=== PATIENT | female | born 1955 | race Caucasian/White ===

== ENCOUNTER → 2020-09-28 08:41 | Outpatient (BNVA) | payer OTHER, SELFPAY | PROVIDERS: PCP Internal Medicine; Referring Provider Internal Medicine; Visit Provider Internal Medicine | DX: E05.90 Thyrotoxicosis, unspecified without thyrotoxic crisis or storm (principal); E55.9 Vitamin D deficiency, unspecified; E04.2 Nontoxic multinodular goiter; Z79.899 Other long term (current) drug therapy; Z23 Encounter for immunization | CPT/HCPCS: 90686 ==

== ENCOUNTER 2020-10-29 10:10 | Outpatient (REF) | payer OTHER, SELFPAY ==
[2020-10-29 11:17] LABS: COVID-19 Test Negative (Negative)
== END 2020-10-29 10:11 | disposition home or self-care (01) ==
LOC: HO.EMPCOV 10:10
PROVIDERS: Visit Provider Internal Medicine
DX: Z20.828 Contact with and (suspected) exposure to other viral communicable diseases (principal)
CPT/HCPCS: 87635; C9803

== ENCOUNTER 2021-02-03 13:27 | Outpatient (REF) | payer OTHER, SELFPAY ==
[2021-02-03 15:24] LABS: Free T4 (Free Thyroxine) 0.86 ng/dL (0.71-1.85); Thyroid Stimulating Hormone 1.97 uIU/mL (0.32-4.0)
[2021-02-04 07:41] LABS: Triiodothyronine T3 Free 2.9 pg/mL (2.3-4.2)
== END 2021-02-03 13:28 | disposition home or self-care (01) ==
LOC: HO.LAB 13:27
PROVIDERS: PCP Internal Medicine; Visit Provider Internal Medicine Endocrinology, Diabetes & Metabolism
DX: E05.20 Thyrotoxicosis with toxic multinodular goiter without thyrotoxic crisis or storm (principal)
CPT/HCPCS: 36415; 84439; 84443; 84481

== ENCOUNTER 2021-02-20 14:50 | Emergency (ER) | payer OTHER, SELFPAY ==
--- NOTE | ~2021-02-20 | XR_ITS ---
EXAMINATION: XR CHEST CLINICAL INFORMATION: Chest pain COMPARISON: January 22, 2013 TECHNIQUE: Frontal view of the chest was obtained. FINDINGS: No significant abnormality is noted involving the heart, lungs, mediastinum, bony thorax or soft tissues. XR/XR chest 1V IMPRESSION: No acute disease.
--- NOTE | 2021-02-20 14:55 | ECG_ITS ---
Test Reason : CHEST PAIN Blood Pressure : / mmHG Vent. Rate : 095 BPM Atrial Rate : 095 BPM P-R Int : 142 ms QRS Dur : 090 ms QT Int : 364 ms P-R-T Axes : 069 068 053 degrees QTc Int : 457 ms Normal sinus rhythm Normal ECG When compared with ECG of 01-SEP-2019 17:12, No significant change was found Referred By: Dottie Zelaya Electronically Signed By:PABLO WHYTE
[2021-02-20 15:00] VITALS: BP 146/70; PULSE 97; RESP 18; TEMP 36.8; O2SAT 97; BMI 28.3
--- NOTE | 2021-02-20 15:03 | ECG_ITS ---
Test Reason : REPEAT Blood Pressure : / mmHG Vent. Rate : 072 BPM Atrial Rate : 072 BPM P-R Int : 148 ms QRS Dur : 090 ms QT Int : 404 ms P-R-T Axes : 081 065 060 degrees QTc Int : 442 ms Normal sinus rhythm Normal EKG When compared with ECG of 20-FEB-2021 14:55, No significant changes seen Referred By: Dottie Zelaya Electronically Signed By:PABLO WHYTE
[2021-02-20 15:24] LABS: MANUAL DIFF FLAG NO
[2021-02-20 15:33] LABS: Basophils Percent Auto 0.3 % (0-2); Eosinophils Absolute Auto 0.1 X10*3/uL (0.0-0.4); Eosinophils Percent Auto 1.3 % (0-4); Hematocrit 40.8 % (37-47); Hemoglobin 13.1 g/dl (12.0-16.0); Imm Gran Abs Auto 0.01 X10*3/uL (0.00-0.03); Imm Gran Pct Auto 0.2 % (0.0-0.4); Lymphocytes Absolute Auto 1.2 X10*3/uL (1.2-4.9); Lymphocytes Percent Auto 20.7 % (20-40); Mean Corpuscular HGB Conc 32.1 g/dl (31.0-35.0); Mean Corpuscular Hemoglobin 28.5 pg (27.0-33.0); Mean Corpuscular Volume 88.9 fL (80-98); Monocytes Absolute Auto 0.6 X10*3/uL (0.1-1.2); Monocytes Percent Auto 9.4 % (2-11); Neutrophils Percent Auto 68.1 % (45-73); Platelet Count 312 X10*3/uL (160-400); Red Blood Count 4.59 X10*6/uL (4.20-5.50); White Blood Count 5.9 X10*3/uL (4.8-10.8)
[2021-02-20 15:56] LABS: Anion Gap 13 (12-20); Blood Urea Nitrogen 14 mg/dL (9-16); Calcium 9.2 mg/dL (8.4-10.2); Carbon Dioxide 28 mmol/L (22-29); Chloride 103 mmol/L (96-108); Creatinine Clr Calc Pharmacy 70.1; Estimated Glomerular Filt Rate > 60; Glucose Random 85 mg/dL (60-115); Potassium 4.2 mmol/L (3.3-5.1); Sodium 140 mmol/L (135-145)
[2021-02-20 16:06] LABS: Troponin-I High Sensitivity < 3.5 ng/L (<3.5-17.0)
[2021-02-20 19:51] LABS: Troponin-I High Sensitivity 3.5 ng/L (<3.5-17.0)
[2021-02-20 20:24] LABS: D Dimer < 200 NG/ML
[2021-02-20 20:25] VITALS: BP 131/69; PULSE 84; RESP 20; O2SAT 98
--- NOTE | 2021-02-20 20:27 | PC.NURSE ---
pt states that she has been under alot of life stressors at this time and has been off of her medications gabapentin and clonazepam.
--- NOTE | 2021-02-20 20:29 | ED_ITS ---
HPI - Chest Pain General Chief Complaint: Chest Pain Stated Complaint: CHEST PAIN Time Seen by Provider: 02/20/21 20:05 Source: patient Mode of arrival: ambulatory Limitations: no limitations History of Present Illness HPI narrative: 65-year-old female who stated has been going through stressful events in her life, patient while she was taking shower about 7 hours ago she felt pain in her left breast with no radiation localized to left breast area, pain was dull aching lasted for about 30 minutes now the pain is gone, nothing made the pain worse or better, no other associated symptoms. Related Data Home Medications Medication Instructions Recorded Confirmed bupropion HCl 150 mg 24 hr tablet, 150 mg PO QAM 09/28/20 09/28/20 extended release cholecalciferol (vitamin D3) 50 50 mcg PO DAILY 09/28/20 09/28/20 mcg (2,000 unit) capsule fluoxetine 20 mg capsule 20 mg PO DAILY 09/28/20 09/28/20 gabapentin 100 mg capsule 100 mg PO BID 09/28/20 09/28/20 Previous Rx's Medication Instructions Recorded methimazole 5 mg tablet 5 mg PO DAILY #90 tab 10/28/20 Allergies Allergy/AdvReac Type Severity Reaction Status Date / Time metronidazole [From FLAGYL] Allergy Severe ANAPHYLAXIS Verified 09/28/20 09:46 sulfite [Sulfite] Allergy Intermediate BISULFITES-ITCHING Verified 09/28/20 09:46 IN MOUTH & THROAT,SHORTNESS OF BREATH phenylalanine [PHENYLALANINE] Allergy Mild UNKNOWN Verified 09/28/20 09:46 green pepper [GREEN PEPPER] Allergy Unknown LIP Verified 09/28/20 09:46 SWELLING From FLAGYL Allergy Severe ANAPHYLAXIS Uncoded 09/28/20 09:46 bisulfites Allergy Unknown itching Uncoded 09/28/20 09:46 peppers Allergy Unknown Unknown Uncoded 09/28/20 09:46 Review of Systems Review of Systems: All other systems are reviewed and are negative Constitutional: Reports as per HPI and Reports no additional constitutional complaints Eyes: Reports as per HPI and Reports no additional eye complaints Reports system reviewed and no additional complaints, except as documented Cardiovascular: Reports as per HPI and Reports no additional cardiovascular complaints Respiratory: Reports as per HPI and Reports no additional respiratory complaints Gastrointestinal: Reports as per HPI and Reports no additional gastrointestinal complaints Genitourinary: Reports no additional female genitourinary complaints Musculoskeletal: Reports no additional musculoskeletal complaints Skin/Breast: Reports system reviewed and no additional complaints, except as docu Psychiatric: Reports no additional psychiatric complaints Endocrine: Reports no additional endocrine complaints Hematologic/Lymphatic: Reports no additional hematologic/lymphatic complaints Allergic/Immunologic: Reports no additional allergic/immunologic complaints Reports system reviewed and no additional complaints, except as documented and Reports Abnormal speech present [facility] Past Medical History Medical History Multinodular thyroid Subclinical hyperthyroidism Vitamin D deficiency Surgical History Hx laparoscopic cholecystectomy Hx of breast augmentation Hx of cataract removal with insertion of prosthetic lens Hx of eye surgery Hx of foot surgery Hx of rhinoplasty Family History Family History Father No problems noted. Mother No problems noted. Social History Social History Alcohol intake: never Smoking Status: Never smoker Use of substances other than those prescribed or required for medical reasons: No Advance Directives: No Advance Directives Information Provided: Yes Physical Exam Vital Signs: Vital Signs: Last Vital Signs Temp 98.2 F 02/20/21 15:00 Pulse 84 02/20/21 20:25 Resp 20 02/20/21 20:25 BP 131/69 02/20/21 20:25 Pulse Ox 98 02/20/21 20:25 Body Mass Index 28.3 Vital signs have been reviewed as appeared to be correct. Blood pressure normal. Heart rate normal. Respiration rate normal. Temperature normal. Oxygen saturation normal. Appearance: Alert. Oriented X3. No acute distress. Head: Normal external exam. Normocephalic. Atraumatic. No Christianson signs noted. No raccoon eyes noted Eyes: PERRLA. EOMI. Conjunctiva and sclera normal. Eyelids normal. ENT: TM's Normal. Pharynx normal. Uvula midline. Moist mucous membranes. No trismus noted. No drooling noted. No muffled voice noted. Neck: Normal inspection. Neck supple. FROM. No adenopathy. Thyroid Normal. No meningeal signs. No neck mass noted. CVS: Normal heart rate and rhythm. Heart sound normal. No murmurs noted. Pulses normal throughout. Respiratory: No respiratory distress. Painless inspiration. Breath sounds normal. No wheezes/rales/rhonchi noted. Chest nontender. No accessory muscle usage noted or decreased air movement noted. Abdomen: Soft and nontender. Bowel sounds normal in all 4 quadrants. No distention noted. No organomegaly noted. No visible injury noted. Back: No CVA tenderness. Full range of motion noted. Skin: Skin warm and dry. Normal skin color. Normal skin turgor. No rashes/lesions/lacerations noted. Extremities: No lower extremity edema. Extremities exhibit normal range of motion. Extremities nontender. Neuro: Oriented X 3. No motor deficit. No sensory deficit. Reflexes normal. Course Course Course Narrative: Assessment and plan. 65-year-old female came in with chest pain after a stressful events today, patient had a negative workup in the emergency department including chest x-ray, EKG, troponin x2 3 hours apart, and D-dimer. None of the above is suggestive of life-threatening cardiopulmonary cause of the patient's symptoms. Patient now is asymptomatic feels better and would like to go home. MDM - Chest Pain Lab Data Attestation: I reviewed the patient's lab results. Result diagrams: 02/20/21 15:18 02/20/21 15:18 Labs: Lab Results 02/20/21 02/20/21 02/20/21 Range/Units 15:18 15:18 15:18 WBC 5.9 (4.8-10.8) X10*3/uL RBC 4.59 (4.20-5.50) X10*6/uL Hgb 13.1 (12.0-16.0) g/dl Hct 40.8 (37-47) % MCV 88.9 (80-98) fL MCH 28.5 (27.0-33.0) pg MCHC 32.1 (31.0-35.0) g/dl RDW 14.0 (11.0-16.0) % Plt Count 312 (160-400) X10*3/uL MPV 9.0 L (9.4-12.3) fL Immature Gran % (Auto) 0.2 (0.0-0.4) % Neut % (Auto) 68.1 (45-73) % Lymph % (Auto) 20.7 (20-40) % Bleckley % (Auto) 9.4 (2-11) % Eos % (Auto) 1.3 (0-4) % Baso % (Auto) 0.3 (0-2) % Lymph # (Auto) 1.2 (1.2-4.9) X10*3/uL Bleckley # (Auto) 0.6 (0.1-1.2) X10*3/uL Eos # (Auto) 0.1 (0.0-0.4) X10*3/uL Baso # (Auto) 0.0 (0.0-0.2) X10*3/uL Abs Immat Gran (auto) 0.01 (0.00-0.03) X10*3/uL Absolute Neuts (auto) 4.0 (2.0-8.3) X10*3/uL Absolute Nucleated RBC 0.000 (0.0-0.012) X10*3/uL Nucleated RBC % (auto) 0.0 (0.0-0.2) /100WBC D-Dimer < 200 NG/ML Hold Blue Top SEE NOTE Sodium 140 (135-145) mmol/L Potassium 4.2 (3.3-5.1) mmol/L Chloride 103 (96-108) mmol/L Carbon Dioxide 28 (22-29) mmol/L Anion Gap 13 (12-20) BUN 14 (9-16) mg/dL Creatinine 0.81 (0.5-1.4) mg/dL Estim Creat Clear Calc 70.1 Estimated GFR > 60 Random Glucose 85 (60-115) mg/dL Calcium 9.2 (8.4-10.2) mg/dL Troponin I High Sens (<3.5-17.0) ng/L 02/20/21 02/20/21 Range/Units 15:18 19:05 WBC (4.8-10.8) X10*3/uL RBC (4.20-5.50) X10*6/uL Hgb (12.0-16.0) g/dl Hct (37-47) % MCV (80-98) fL MCH (27.0-33.0) pg MCHC (31.0-35.0) g/dl RDW (11.0-16.0) % Plt Count (160-400) X10*3/uL MPV (9.4-12.3) fL Immature Gran % (Auto) (0.0-0.4) % Neut % (Auto) (45-73) % Lymph % (Auto) (20-40) % Bleckley % (Auto) (2-11) % Eos % (Auto) (0-4) % Baso % (Auto) (0-2) % Lymph # (Auto) (1.2-4.9) X10*3/uL Bleckley # (Auto) (0.1-1.2) X10*3/uL Eos # (Auto) (0.0-0.4) X10*3/uL Baso # (Auto) (0.0-0.2) X10*3/uL Abs Immat Gran (auto) (0.00-0.03) X10*3/uL Absolute Neuts (auto) (2.0-8.3) X10*3/uL Absolute Nucleated RBC (0.0-0.012) X10*3/uL Nucleated RBC % (auto) (0.0-0.2) /100WBC D-Dimer NG/ML Hold Blue Top Sodium (135-145) mmol/L Potassium (3.3-5.1) mmol/L Chloride (96-108) mmol/L Carbon Dioxide (22-29) mmol/L Anion Gap (12-20) BUN (9-16) mg/dL Creatinine (0.5-1.4) mg/dL Estim Creat Clear Calc Estimated GFR Random Glucose (60-115) mg/dL Calcium (8.4-10.2) mg/dL Troponin I High Sens < 3.5 3.5 (<3.5-17.0) ng/L Imaging Data Chest x-ray: Radiologist's impression: No acute disease. ECG Data ECG #1: Interpretation: Normal sinus rhythm at 72 beats per minutes, with PACs, normal axis deviation, normal intervals, no ST-T changes. Attending Attestation Discharge Plan Discharge Clinical Impression: Chest pain Patient Disposition: Home, Self-Care Instructions: Chest Pain (ED) Prescriptions: No Action methimazole 5 mg tablet 5 mg PO DAILY Qty: 90 RF: 3 bupropion HCl 150 mg tablet extended release 24 hr 150 mg PO QAM RF: 0 fluoxetine 20 mg capsule 20 mg PO DAILY RF: 0 cholecalciferol (vitamin D3) 50 mcg (2,000 unit) capsule 50 mcg PO DAILY RF: 0 gabapentin 100 mg capsule 100 mg PO BID RF: 0 Referrals: Physician,Unknown [Primary Care Provider] - 2 days Interventions: ED Discharge Assessment Last Done: 02/20/21 20:52 Discharge Date/Time: 02/20/21 20:53
== END 2021-02-20 20:53 | disposition home or self-care (01) ==
PROVIDERS: Emergency Provider Emergency Medicine
DX: R07.9 Chest pain, unspecified (principal)
CPT/HCPCS: 36415; 71045; 80048; 84484; 85025; 85379; 93005; 99283; 99284

== ENCOUNTER 2021-03-28 14:07 | Outpatient (REF) | payer OTHER, SELFPAY ==
--- NOTE | ~2021-03-28 | US_ITS ---
EXAMINATION: US THYROID CLINICAL INFORMATION: Toxic multinodular goiter. COMPARISON: Ultrasound-guided thyroid biopsy 09/10/2019. Thyroid ultrasound 03/03/2019. TECHNIQUE: Linear transducer prasad-scale and color Doppler examination with attention to the region of the thyroid. FINDINGS: SIZE: Measurements of the thyroid lobes and nodules are given in sagittal, anteroposterior and transverse dimensions respectively. Right Thyroid Lobe: 6.0 x 2.8 x 3.0 cm, volume 26.2 mL. Previously 6.3 x 2.6 x 2.2 cm, volume 21.6 mL. Parenchyma: The gland echotexture is heterogeneous. Thyroid vascularity is increased. Left Thyroid Lobe: 6.0 x 3.0 x 2.8 cm, volume 25.7 mL. Previously 5.1 x 2.3 x 2.1 cm, volume 13.1 mL. Parenchyma: The gland echotexture is heterogeneous. Thyroid vascularity is increased. Isthmus: 0.4 cm in maximum AP dimension. Previously 0.3 cm. There are innumerable bilateral nodules. Estimated total number of nodules greater than or equal to 1 cm: 6 to 10. Department Assistant nodules are described as follows: 1. Location: Right upper pole. Size: 2.1 x 1.5 x 1.6 cm, volume 2.5 mL. Previously: 2.0 x 1.6 x 1.4 cm, volume 2.3 mL. Nodule characteristics: Composition: Mixed cystic and solid (1). Echogenicity: Hypoechoic (2). Shape: Not taller than wide (0). Margins: Smooth (0). Echogenic Foci: Peripheral calcifications (2). ACR TI-RADS total points: 5 ACR TI-RADS category: 4 Significant change in size (>/= 20% in 2 dimensions and minimal increase of 2 mm or 50% or greater increase in volume): No Change in features: No Change in ACR TI-RADS risk category: No 2. Location: Right mid pole. Size: 1.2 x 1.1 x 1.2 cm, volume 0.8 mL. Previously: 0.8 x 0.8 x 0.8 cm, volume 0.27 mL. Nodule characteristics: Composition: Mixed cystic and solid (1). Echogenicity: Hypoechoic (2). Shape: Not taller than wide (0). Margins: Smooth (0). Echogenic Foci: None (0). ACR TI-RADS total points: 3 ACR TI-RADS category: 3 Significant change in size (>/= 20% in 2 dimensions and minimal increase of 2 mm or 50% or greater increase in volume): Yes Change in features: No Change in ACR TI-RADS risk category: No 3. Location: Right lower pole. Size: 1.3 x 1.1 x 1.2 cm, volume 0.94 mL. Previously: 1.0 x 1.0 x 0.9 cm, volume 0.47 mL. Nodule characteristics: Composition: Mixed cystic and solid (1). Echogenicity: Hypoechoic (2). Shape: Not taller than wide (0). Margins: Smooth (0). Echogenic Foci: None (0). ACR TI-RADS total points: 3 ACR TI-RADS category: 3 Significant change in size (>/= 20% in 2 dimensions and minimal increase of 2 mm or 50% or greater increase in volume): Yes Change in features: No Change in ACR TI-RADS risk category: No 4. Location: Left mid pole. Size: 3.1 x 2.1 x 1.9 cm, volume 6.7 mL. Previously: 2.2 x 1.6 x 1.6 cm, volume 2.95 mL. Nodule characteristics: Composition: Solid/almost completely solid (2). Echogenicity: Isoechoic (1). Shape: Not taller than wide (0). Margins: Smooth (0). Echogenic Foci: None (0). ACR TI-RADS total points: 3 ACR TI-RADS category: 3 Significant change in size (>/= 20% in 2 dimensions and minimal increase of 2 mm or 50% or greater increase in volume): Yes Change in features: No Change in ACR TI-RADS risk category: No 5. Location: Left mid pole. Size: 1.3 x 0.8 x 1.0 cm, volume 0.54 mL. Previously: 1.0 x 1.0 x 0.8 cm, volume 0.42 mL. Nodule characteristics: Composition: Solid (2). Echogenicity: Hypoechoic (2). Shape: Not taller than wide (0). Margins: Smooth (0). Echogenic Foci: None (0). ACR TI-RADS total points: 4 ACR TI-RADS category: 4 Significant change in size (>/= 20% in 2 dimensions and minimal increase of 2 mm or 50% or greater increase in volume): No Change in features: No Change in ACR TI-RADS risk category: No NODES: No lymphadenopathy is seen in the tissue surrounding the thyroid gland. US/US thyroid IMPRESSION: Enlarged heterogeneous hypervascular thyroid gland. Innumerable bilateral nodules. There is interval increase in size in the largest nodule in the mid left lobe. ACR TI-RADS RECOMMENDATION REFERENCE: Ultrasound-guided fine-needle aspiration, followup ultrasound, no further follow up. * TR1 (0 point) and TR 2 (2 points): No FNA or follow up * TR3 (3 points): FNA if more than or equal to 2.5 cm in maximum dimension, followup ultrasound in 1, 3 and 5 years if 1.5 to 2.4 cm in maximum dimension. * TR4 (4-6 points): FNA if more than or equal to 1.5 cm in maximum dimension, followup ultrasound in 1, 2, 3 and 5 years if 1 to 1.4 cm in maximum dimension. * TR5 (more than or equal to 7 points): FNA if more than or equal to 1 cm in maximum dimension, followup ultrasound every year for 5 years if 0.5 to 0.9 cm in maximum dimension. * TR3, TR4 or TR5 nodules that are below the size threshold for follow up receive no follow up.
== END 2021-03-28 14:08 | disposition home or self-care (01) ==
LOC: HO.US 14:07
PROVIDERS: Visit Provider Internal Medicine Endocrinology, Diabetes & Metabolism
DX: E05.20 Thyrotoxicosis with toxic multinodular goiter without thyrotoxic crisis or storm (principal)
CPT/HCPCS: 76536

== ENCOUNTER 2021-10-16 15:36 | Emergency (ER) | payer OTHER, SELFPAY ==
--- NOTE | ~2021-10-16 | US_ITS ---
EXAMINATION: US THYROID CLINICAL INFORMATION: Patient concern for new lumps in neck. COMPARISON: Thyroid ultrasound 03/28/2021 and 03/03/2019. Ultrasound-guided thyroid biopsy 09/10/2019. TECHNIQUE: Linear transducer grayscale and color Doppler examination with attention to the region of the thyroid. FINDINGS: SIZE: Measurements of the thyroid lobes and nodules are given in sagittal, anteroposterior and transverse dimensions respectively. Right Thyroid Lobe: 5.8 x 3.1 x 2.8 cm, volume 26.2 mL. Previously 6.0 x 2.8 x 3.0 cm, volume 26.2 mL. Parenchyma: The gland echotexture is heterogeneous. Thyroid vascularity is increased. Left Thyroid Lobe: 5.2 x 3.1 x 2.6 cm, volume 22.4 mL. Previously 6.0 x 3.0 x 2.8 cm, volume 25.7 mL. Parenchyma: The gland echotexture is heterogeneous. Thyroid vascularity is increased. Isthmus: 0.6 cm in maximum AP dimension. Previously 0.4 cm. As noted on prior exam, there are numerous nodules throughout the thyroid. Estimated total number of nodules greater than or equal to 1 cm: 5. Bilingual Case Manager nodules are described as follows: 1. Location: Right upper pole. Size: 1.5 x 1.4 x 1.5 cm, volume 1.64 mL. Previously: 2.1 x 1.6 x 1.5 cm, volume 2.5 mL. Nodule characteristics: Composition: Mixed cystic and solid (1). Echogenicity: Hypoechoic (2). Shape: Not taller than wide (0). Margins: Smooth (0). Echogenic Foci: Peripheral calcifications (2). ACR TI-RADS total points: 5 Previous: 5 ACR TI-RADS category: 4 Previous: 4 Change from prior: No suspicious changes, sightly decreased in size. 2. Location: Right mid pole. Size: 1.4 x 0.8 x 1.3 cm, volume 0.8 mL. Previously: 1.2 x 1.1 x 1.2 cm, volume 0.8 mL. Nodule characteristics: Composition: Mixed cystic and solid (1). Echogenicity: Cannot be determined (1). Shape: Not taller than wide (0). Margins: Smooth (0). Echogenic Foci: None (0). ACR TI-RADS total points: 2 Previous: 3 ACR TI-RADS category: 2 Previous: 3 Change from prior: No suspicious changes. Stable size. 3. Location: Right lower pole. Size: 1.5 x 0.8 x 1.2 cm, volume 0.8 mL. Previously: 1.3 x 1.1 x 1.2 cm, volume 0.94 mL. Nodule characteristics: Composition: Mixed cystic and solid (1). Echogenicity: Cannot be determined (1). Shape: Not taller than wide (0). Margins: Smooth (0). Echogenic Foci: None (0). ACR TI-RADS total points: 2 Previous: 3 ACR TI-RADS category: 2 Previous: 3 Change from prior: No suspicious changes, sightly decreased in size. 4. Location: Left mid pole. Size: 3.1 x 2.3 x 1.7 cm, volume 6.3 mL. Previously: 3.1 x 2.1 x 1.9 cm, volume 6.7 mL. Nodule characteristics: Composition: Solid (2). Echogenicity: Isoechoic (1). Shape: Not taller than wide (0). Margins: Smooth (0). Echogenic Foci: None (0). ACR TI-RADS total points: 3 Previous: 3 ACR TI-RADS category: 3 Previous: 3 Change from prior: No suspicious changes. Stable size. 5. Location: Left mid pole. Size: 1.6 x 0.8 x 1.2 cm, volume 0.8 mL. Previously: 1.3 x 0.8 x 1.0 cm, volume 0.54 mL. Nodule characteristics: Composition: Solid (2). Echogenicity: Hypoechoic (2). Shape: Not taller than wide (0). Margins: Smooth (0). Echogenic Foci: None (0). ACR TI-RADS total points: 4 Previous: 4 ACR TI-RADS category: 4 Previous: 4 Change from prior: No suspicious changes. Borderline increased size. NODES: No lymphadenopathy is seen in the tissue surrounding the thyroid gland. Preliminary results called to emergency department provider by radiologist Dr. Solis at time of exam. US/US thyroid IMPRESSION: Numerous thyroid nodules without significant change. No interval new dominant mass. No adenopathy. ACR TI-RADS RECOMMENDATION REFERENCE: Ultrasound-guided fine-needle aspiration, followup ultrasound, no further follow up. * TR1 (0 point) and TR 2 (2 points): No FNA or follow up * TR3 (3 points): FNA if more than or equal to 2.5 cm in maximum dimension, followup ultrasound in 1, 3 and 5 years if 1.5 to 2.4 cm in maximum dimension. * TR4 (4-6 points): FNA if more than or equal to 1.5 cm in maximum dimension, followup ultrasound in 1, 2, 3 and 5 years if 1 to 1.4 cm in maximum dimension. * TR5 (more than or equal to 7 points): FNA if more than or equal to 1 cm in maximum dimension, followup ultrasound every year for 5 years if 0.5 to 0.9 cm in maximum dimension. * TR3, TR4 or TR5 nodules that are below the size threshold for follow up receive no follow up.
[2021-10-16 16:03] VITALS: BP 113/69; PULSE 87; RESP 20; TEMP 36.1; O2SAT 98; BMI 28.8
--- NOTE | 2021-10-16 16:10 | ECG_ITS ---
Test Reason : GEN MED Blood Pressure : / mmHG Vent. Rate : 082 BPM Atrial Rate : 082 BPM P-R Int : 144 ms QRS Dur : 092 ms QT Int : 386 ms P-R-T Axes : 084 068 058 degrees QTc Int : 450 ms Normal sinus rhythm Normal ECG When compared with ECG of 20-FEB-2021 20:43, No significant change was found Referred By: Generic ED Physician Electronically Signed By:Tomasz Griffiths
[2021-10-16 16:35] LABS: Basophils Percent Auto 0.3 % (0-2); Eosinophils Absolute Auto 0.1 X10*3/uL (0.0-0.4); Eosinophils Percent Auto 2.1 % (0-4); Hematocrit 36.6 % (37.0-47.0); Hemoglobin 11.8 g/dl (12.0-16.0); Imm Gran Abs Auto 0.02 X10*3/uL (0.00-0.03); Imm Gran Pct Auto 0.3 % (0.0-0.4); Lymphocytes Percent Auto 14.1 % (20-40); MANUAL DIFF FLAG NO; Mean Corpuscular HGB Conc 32.2 g/dl (31.0-35.0); Mean Corpuscular Hemoglobin 29.1 pg (27.0-33.0); Mean Corpuscular Volume 90.4 fL (80.0-98.0); Mean Platelet Volume 9.1 fL (9.4-12.3); Monocytes Absolute Auto 0.7 X10*3/uL (0.1-1.2); Monocytes Percent Auto 10.2 % (2-11); Neutrophils Absolute Auto 4.9 x10*3/uL (2.0-8.3); Platelet Count 281 X10*3/uL (160-400); Red Blood Count 4.05 X10*6/uL (4.20-5.50); Red Cell Distribution Width 13.8 % (11.0-16.0); White Blood Count 6.7 X10*3/uL (4.8-10.8)
[2021-10-16 16:57] LABS: Alanine Aminotransferase 36 U/L (0-31); Alkaline Phosphatase 95 U/L (39-117); Anion Gap 11 (12-20); Aspartate Amino Transferase 28 U/L (5-31); Bilirubin Total 0.4 mg/dL (0.0-1.0); Blood Urea Nitrogen 14 mg/dL (9-16); Calcium 9.1 mg/dL (8.4-10.2); Carbon Dioxide 28 mmol/L (22-29); Chloride 106 mmol/L (96-108); Creatinine Clr Calc Pharmacy 68.2; Estimated Glomerular Filt Rate > 60; Glucose Random 90 mg/dL (60-115); Potassium 4.1 mmol/L (3.3-5.1); Sodium 141 mmol/L (135-145); Total Protein 6.1 g/dL (6.5-8.0)
[2021-10-16 21:16] VITALS: BP 170/71; PULSE 88; RESP 18; O2SAT 99
--- NOTE | 2021-10-16 21:21 | ED_ITS ---
HPI - General Adult General Chief complaint: General Medical Stated complaint: all over body shaking Time Seen by Provider: 10/16/21 21:06 Source: patient Mode of arrival: ambulatory Limitations: no limitations History of Present Illness HPI narrative: Patient comes to the emergency room complaining of lump her thro at, worsening tremors, and generalized fatigue Patient states that she has known history of hyperthyroidism. Patient states that she takes methimazole every day and takes her medication without skipping doses. Patient states that over the last week she has noticed that she has increased soreness in her neck, increased tremors, increased sweating episodes. Patient states that this morning she felt very fatigued with no clear reason. Patient denies any URI or UTI symptoms. Patient states that she has history of essential tremors, sodium hard to tell if she has worsening of tremors or if this is something new she is feeling. Patient states they have tried metoprolol in the past for her, however her blood pressure dropped to the low 80s and medication had to be discontinued. Related Data Home Medications Medication Instructions Recorded Confirmed bupropion HCl 150 mg 24 hr tablet, 150 mg PO QAM 09/28/20 09/28/20 extended release cholecalciferol (vitamin D3) 50 50 mcg PO DAILY 09/28/20 09/28/20 mcg (2,000 unit) capsule fluoxetine 20 mg capsule 20 mg PO DAILY 09/28/20 09/28/20 gabapentin 100 mg capsule 100 mg PO BID 09/28/20 09/28/20 Previous Rx's Medication Instructions Recorded methimazole 5 mg tablet 5 mg PO DAILY #90 tab 10/28/20 Allergies Allergy/AdvReac Type Severity Reaction Status Date / Time metronidazole [From FLAGYL] Allergy Severe ANAPHYLAXIS Verified 10/16/21 14:03 sulfite [Sulfite] Allergy Intermediate BISULFITES-ITCHING Verified 10/16/21 14:03 IN MOUTH & THROAT,SHORTNESS OF BREATH phenylalanine [PHENYLALANINE] Allergy Mild UNKNOWN Verified 10/16/21 14:03 green pepper [GREEN PEPPER] Allergy Unknown LIP Verified 10/16/21 14:03 SWELLING From FLAGYL Allergy Severe ANAPHYLAXIS Uncoded 09/28/20 09:46 bisulfites Allergy Unknown itching Uncoded 09/28/20 09:46 peppers Allergy Unknown Unknown Uncoded 09/28/20 09:46 Review of Systems Review of Systems: Constitutional : No Weight loss, No Fever, No Chills, No Night Sweats, complaining fatigue ENT/Mouth : No Hearing loss, No Ear Pain, No Nasal Congestion, No Sinus Pain, No Hoarseness, No sore throat, No Rhinorrhea, No Swallowing Difficulty, complaining increased tightness/lumps on her neck Eyes: No Eye Pain, No Swelling, No Redness, No Foreign Body, No Discharge, No Vision Changes Cardiovascular : No Chest Pain, No SOB, No Dyspnea on Exertion, No Orthopnea, No Edema, complaining of intermittent heart racing/ Respiratory : No Cough, No Sputum, No Wheezing, No Smoke Exposure, No Dyspnea Gastrointestinal : No Nausea, No Vomiting, No Diarrhea, No Constipation, No abdominal Pain, No Hematochezia, No Melena Genitourinary : no irregular bleeding, No Dysuria, No Urinary Frequency, No Hematuria, No Urinary Incontinence, No Urgency, No Flank Pain, No Urinary Flow Changes, No Hesitancy Musculoskeletal : Complaining posterior neck muscular discomfort, patient attributed to starting at the screen at work for prolonged period of time . No joint pain, No Myalgias, No Joint Swelling Skin : No Skin Lesions, No rash Neuro : No Weakness, No Numbness, No Paresthesias, No Loss of Consciousness, No Dizziness, No Headache, complaining of tremors Psych : No Anxiety/Panic, No Depression, No SI/HI/AH/VH, No Social Issues, Heme/Lymph: No Bruising, No Bleeding,No Lymphadenopathy Endocrine : No Polyuria, No Polydipsia, No Temperature Intolerance PMFSH Past Medical History Medical History Multinodular thyroid Subclinical hyperthyroidism Vitamin D deficiency Surgical History Hx laparoscopic cholecystectomy Hx of breast augmentation Hx of cataract removal with insertion of prosthetic lens Hx of eye surgery Hx of foot surgery Hx of rhinoplasty Family History Family History Father No problems noted. Mother No problems noted. Social History Social History Alcohol intake: never Patient Tobacco Use Status: Former Tobacco user Advance Directives: No Advance Directives Information Provided: No Physical Exam 2 Vital Signs: Vital Signs: Last Vital Signs Temp 97 F 10/16/21 16:03 Pulse 88 10/16/21 21:16 Resp 18 10/16/21 21:16 BP 170/71 H 10/16/21 21:16 Pulse Ox 99 10/16/21 21:16 BMI result Body Mass Index 28.8 Const: Other: Appearance: Alert. Oriented X3. No acute distress. Eyes: Pupils equal, round and reactive to light. ENT: Pharynx normal. Small nodule palpated in the anterior aspect midline of the neck, nonpainful Neck: Normal inspection. Neck supple. No lymph nodes noted. No crepitus CVS: Normal heart rate and rhythm. Pulses normal. Normal S1 and S2 Respiratory: No respiratory distress. Breath sounds normal. No Wheezing. No rales Abdomen: Soft and nontender. No rigidity. No distention. Skin: Skin warm and dry. Normal skin color. Normal skin turgor. Extremities: No lower extremity edema. No Lacerations. No Rash mild tremor at rest in the upper extremities/hands Neuro: Oriented X 3. No motor deficit. No sensory deficit. Moving all extermities. No slurred speech. Course Course Course Narrative: At this time, we cannot get a formal radiology report. However a radiologist on-call from [facility] called, there are no acute changes since patient's last ultrasound. Imaging with the patient, TSH is slightly elevated and free T4 is decreased. However both ranges are close to baseline. At this time, we will not change patient's medication, patient instructed to keep taking the same dose of methimazole. Patient likely having viral syndrome. Medical Decision Making Lab Data Result diagrams: 10/16/21 16:25 10/16/21 16:25 Labs: Lab Results 10/16/21 10/16/21 10/16/21 Range/Units 16:25 16:25 21:32 WBC 6.7 (4.8-10.8) X10*3/uL RBC 4.05 L (4.20-5.50) X10*6/uL Hgb 11.8 L (12.0-16.0) g/dl Hct 36.6 L (37.0-47.0) % MCV 90.4 (80.0-98.0) fL MCH 29.1 (27.0-33.0) pg MCHC 32.2 (31.0-35.0) g/dl RDW 13.8 (11.0-16.0) % Plt Count 281 (160-400) X10*3/uL MPV 9.1 L (9.4-12.3) fL Immature Gran % (Auto) 0.3 (0.0-0.4) % Neut % (Auto) 73.0 (45-73) % Lymph % (Auto) 14.1 L (20-40) % [place] % (Auto) 10.2 (2-11) % Eos % (Auto) 2.1 (0-4) % Baso % (Auto) 0.3 (0-2) % Lymph # (Auto) 1.0 L (1.2-4.9) X10*3/uL [place] # (Auto) 0.7 (0.1-1.2) X10*3/uL Eos # (Auto) 0.1 (0.0-0.4) X10*3/uL Baso # (Auto) 0.0 (0.0-0.2) X10*3/uL Abs Immat Gran (auto) 0.02 (0.00-0.03) X10*3/uL Absolute Neuts (auto) 4.9 (2.0-8.3) x10*3/uL Absolute Nucleated RBC 0.000 (0.0-0.012) X10*3/uL Nucleated RBC % (auto) 0.0 (0.0-0.2) /100WBC Sodium 141 (135-145) mmol/L Potassium 4.1 (3.3-5.1) mmol/L Chloride 106 (96-108) mmol/L Carbon Dioxide 28 (22-29) mmol/L Anion Gap 11 L (12-20) BUN 14 (9-16) mg/dL Creatinine 0.80 (0.5-1.4) mg/dL Estim Creat Clear Calc 68.2 Estimated GFR > 60 Random Glucose 90 (60-115) mg/dL Calcium 9.1 (8.4-10.2) mg/dL Total Bilirubin 0.4 (0.0-1.0) mg/dL AST 28 (5-31) U/L ALT 36 H (0-31) U/L Alkaline Phosphatase 95 (39-117) U/L Total Protein 6.1 L (6.5-8.0) g/dL Albumin 4.0 (3.5-5.0) g/dL TSH 5.52 H (0.32-4.0) uIU/mL Free T4 0.68 L (0.71-1.85) ng/dL Urine Color Urine Appearance Urine pH (5.0-8.0) Ur Specific [place] (1.005-1.025) Urine Protein (NEG-TRACE) MG/DL Urine Glucose (UA) (NEG) MG/DL Urine Ketones (NEG) MG/DL Urine Blood (NEG) Urine Nitrite (NEG) Ur Leukocyte Esterase (NEG) COVID-19 (LUNA) Negative (Negative) COVID-19 Clin Com See Note 10/16/21 Range/Units 22:42 WBC (4.8-10.8) X10*3/uL RBC (4.20-5.50) X10*6/uL Hgb (12.0-16.0) g/dl Hct (37.0-47.0) % MCV (80.0-98.0) fL MCH (27.0-33.0) pg MCHC (31.0-35.0) g/dl RDW (11.0-16.0) % Plt Count (160-400) X10*3/uL MPV (9.4-12.3) fL Immature Gran % (Auto) (0.0-0.4) % Neut % (Auto) (45-73) % Lymph % (Auto) (20-40) % [place] % (Auto) (2-11) % Eos % (Auto) (0-4) % Baso % (Auto) (0-2) % Lymph # (Auto) (1.2-4.9) X10*3/uL [place] # (Auto) (0.1-1.2) X10*3/uL Eos # (Auto) (0.0-0.4) X10*3/uL Baso # (Auto) (0.0-0.2) X10*3/uL Abs Immat Gran (auto) (0.00-0.03) X10*3/uL Absolute Neuts (auto) (2.0-8.3) x10*3/uL Absolute Nucleated RBC (0.0-0.012) X10*3/uL Nucleated RBC % (auto) (0.0-0.2) /100WBC Sodium (135-145) mmol/L Potassium (3.3-5.1) mmol/L Chloride (96-108) mmol/L Carbon Dioxide (22-29) mmol/L Anion Gap (12-20) BUN (9-16) mg/dL Creatinine (0.5-1.4) mg/dL Estim Creat Clear Calc Estimated GFR Random Glucose (60-115) mg/dL Calcium (8.4-10.2) mg/dL Total Bilirubin (0.0-1.0) mg/dL AST (5-31) U/L ALT (0-31) U/L Alkaline Phosphatase (39-117) U/L Total Protein (6.5-8.0) g/dL Albumin (3.5-5.0) g/dL TSH (0.32-4.0) uIU/mL Free T4 (0.71-1.85) ng/dL Urine Color YELLOW Urine Appearance CLEAR Urine pH 6.0 (5.0-8.0) Ur Specific [place] <= 1.005 (1.005-1.025) Urine Protein NEG (NEG-TRACE) MG/DL Urine Glucose (UA) NEG (NEG) MG/DL Urine Ketones NEG (NEG) MG/DL Urine Blood NEG (NEG) Urine Nitrite NEG (NEG) Ur Leukocyte Esterase NEG (NEG) COVID-19 (LUNA) (Negative) COVID-19 Clin Com Discharge Plan Discharge Clinical Impression: Acute viral syndrome, Essential tremor Patient Disposition: Home, Self-Care Instructions: Viral Syndrome (ED) Additional Instructions: Please follow-up with your primary care physician tomorrow. If you have any worsening or new symptoms, please return to the emergency room or call 911 Prescriptions: No Action methimazole 5 mg tablet 5 mg PO DAILY Qty: 90 RF: 3 bupropion HCl 150 mg tablet extended release 24 hr 150 mg PO QAM RF: 0 fluoxetine 20 mg capsule 20 mg PO DAILY RF: 0 cholecalciferol (vitamin D3) 50 mcg (2,000 unit) capsule 50 mcg PO DAILY RF: 0 gabapentin 100 mg capsule 100 mg PO BID RF: 0 Stand Alone Forms: Work/School Release
[2021-10-16 21:41] LABS: TSH reflex Free T4 5.52 uIU/mL (0.32-4.0)
[2021-10-16 22:05] LABS: COVID-19 Test Negative (Negative)
[2021-10-16 22:49] LABS: Appearance Urine CLEAR; Color Urine YELLOW; Glucose Urine UA NEG (NEG); Leukocyte Esterase Urine NEG (NEG); Nitrite Urine NEG (NEG); Specific Gravity - Urine <= 1.005 (1.005-1.025); Urine Blood NEG (NEG); Urine Ketones NEG (NEG); Urine Protein NEG (NEG-TRACE)
[2021-10-16 23:46] LABS: Free T4 (Free Thyroxine) 0.68 ng/dL (0.71-1.85)
[2021-10-17] VITALS: BP 129/66; PULSE 75; RESP 16; O2SAT 97
== END 2021-10-17 00:48 | disposition home or self-care (01) ==
PROVIDERS: Emergency Provider Emergency Medicine; PCP Internal Medicine
DX: B34.9 Viral infection, unspecified (principal); Z20.822 Contact with and (suspected) exposure to COVID-19; G25.0 Essential tremor
CPT/HCPCS: 36415; 76536; 80053; 81003; 84439; 84443; 85025; 87635; 93005; 99284

== ENCOUNTER 2022-03-23 16:56 | Outpatient (REF) | payer OTHER, SELFPAY ==
[2022-03-23 18:11] LABS: Free T4 (Free Thyroxine) 0.84 ng/dL (0.71-1.85); Thyroid Stimulating Hormone 2.05 uIU/mL (0.32-4.0)
== END 2022-03-23 16:57 | disposition home or self-care (01) ==
LOC: HO.LAB 16:56
PROVIDERS: PCP Internal Medicine; Visit Provider Internal Medicine Endocrinology, Diabetes & Metabolism
DX: E05.20 Thyrotoxicosis with toxic multinodular goiter without thyrotoxic crisis or storm (principal)
CPT/HCPCS: 36415; 84439; 84443

== ENCOUNTER 2022-04-29 23:25 | Emergency (ER) | payer OTHER, SELFPAY ==
--- NOTE | 2022-04-29 | ECG_ITS ---
Test Reason : DIZZINESS Blood Pressure : / mmHG Vent. Rate : 090 BPM Atrial Rate : 090 BPM P-R Int : 172 ms QRS Dur : 092 ms QT Int : 382 ms P-R-T Axes : 070 062 063 degrees QTc Int : 467 ms Sinus rhythm with Premature atrial complexes Otherwise normal ECG No previous ECGs available Referred By: Emily Lock Electronically Signed By:WILBERT KIM MD
[2022-04-29 23:31] VITALS: BP 153/82; PULSE 87; RESP 18; TEMP 36.4; O2SAT 100; BMI 30.5
[2022-04-29 23:41] VITALS: BP 151/74; PULSE 77
--- NOTE | 2022-04-29 23:41 | ED_ITS ---
HPI - General Adult General Chief complaint: General Medical Stated complaint: gen med Time Seen by Provider: 04/29/22 23:28 Source: patient Mode of arrival: wheelchair Limitations: no limitations History of Present Illness HPI narrative: Patient comes to the emergency room from [facility], complaining of sudden onset of p rofuse sweating, generalized weakness, lightheadedness. Patient denies chest pain or shortness of breath. Patient states that she still feels very nauseous, symptoms are subsiding. Related Data Home Medications Medication Instructions Recorded Confirmed bupropion HCl 150 mg 24 hr tablet, 150 mg PO QAM 09/28/20 09/28/20 extended release cholecalciferol (vitamin D3) 50 50 mcg PO DAILY 09/28/20 09/28/20 mcg (2,000 unit) capsule fluoxetine 20 mg capsule 20 mg PO DAILY 09/28/20 09/28/20 gabapentin 100 mg capsule 100 mg PO BID 09/28/20 09/28/20 Previous Rx's Medication Instructions Recorded methimazole 5 mg tablet 5 mg PO DAILY #90 tabs 10/28/20 Allergies Allergy/AdvReac Type Severity Reaction Status Date / Time metronidazole [From FLAGYL] Allergy Severe ANAPHYLAXIS Verified 10/16/21 14:03 sulfite [Sulfite] Allergy Intermediate BISULFITES-ITCHING Verified 10/16/21 14:03 IN MOUTH & THROAT,SHORTNESS OF BREATH phenylalanine [PHENYLALANINE] Allergy Mild UNKNOWN Verified 10/16/21 14:03 green pepper [GREEN PEPPER] Allergy Unknown LIP Verified 10/16/21 14:03 SWELLING From FLAGYL Allergy Severe ANAPHYLAXIS Uncoded 09/28/20 09:46 bisulfites Allergy Unknown itching Uncoded 09/28/20 09:46 peppers Allergy Unknown Unknown Uncoded 09/28/20 09:46 Review of Systems 2 Review of Systems: Constitutional : No Weight loss, No Fever, No Chills, complaining of sudden onset of diffuse sweating ENT/Mouth : No Hearing loss, No Ear Pain, No Nasal Congestion, No Sinus Pain, No Hoarseness, No sore throat, No Rhinorrhea, No Swallowing Difficulty Eyes: No Eye Pain, No Swelling, No Redness, No Foreign Body, No Discharge, No Vision Changes Cardiovascular : No Chest Pain, No SOB, No Dyspnea on Exertion, No Orthopnea, No Edema, No Palpitations Respiratory : No Cough, No Sputum, No Wheezing, No Smoke Exposure, No Dyspnea Gastrointestinal : No Nausea, No Vomiting, No Diarrhea, No Constipation, No abdominal Pain, No Hematochezia, No Melena Genitourinary : no irregular bleeding, No Dysuria, No Urinary Frequency, No Hematuria, No Urinary Incontinence, No Urgency, No Flank Pain, No Urinary Flow Changes, No Hesitancy Musculoskeletal : No joint pain, No Myalgias, No Joint Swelling Skin : No Skin Lesions, No rash Neuro : No Weakness, No Numbness, No Paresthesias, No Loss of Consciousness, reports mild headache, and lightheadedness Psych : No Anxiety/Panic, No Depression, No SI/HI/AH/VH, No Social Issues, Heme/Lymph: No Bruising, No Bleeding,No Lymphadenopathy Endocrine : No Polyuria, No Polydipsia, No Temperature Intolerance COUNT INCLUDES THE [facility] Past Medical History Medical History (Updated 04/30/22 @ 03:09 by Emily Lock MD) Hyperthyroidism Surgical History Hx laparoscopic cholecystectomy Hx of breast augmentation Hx of cataract removal with insertion of prosthetic lens Hx of eye surgery Hx of foot surgery Hx of rhinoplasty Family History Family History Father No problems noted. Mother No problems noted. Social History Social History Alcohol intake: never Patient Tobacco Use Status: Former Tobacco user Advance Directives: No Advance Directives Information Provided: Yes Physical Exam ED Vital Signs: Vital Signs - 24 hr 04/29/22 23:31 04/29/22 23:41 04/29/22 23:43 Temperature 97.6 F Pulse Rate 87 77 87 Respiratory Rate 18 Blood Pressure 153/82 H 151/74 H 140/70 H Pulse Oximetry 100 Oxygen Delivery Method Room Air 04/29/22 23:45 04/30/22 01:02 04/30/22 01:52 Temperature Pulse Rate 77 68 75 Respiratory Rate 16 Blood Pressure 129/75 150/75 H 149/69 H Pulse Oximetry 100 Oxygen Delivery Method Room Air 04/30/22 01:57 04/30/22 01:53 04/30/22 01:55 Temperature Pulse Rate 75 75 74 Respiratory Rate 16 Blood Pressure 147/73 H 146/73 H 142/69 H Pulse Oximetry 100 Oxygen Delivery Method BMI result Body Mass Index 30.5 Const Other: Appearance: Alert. Oriented X3. No acute distress. Eyes: Pupil on the right side chronically 1 mm larger than the left, both pupils round and reactive to light. No nystagmus ENT: Pharynx normal. Neck: Normal inspection. Neck supple. No lymph nodes noted. No crepitus CVS: Normal heart rate and rhythm. Pulses normal. Normal S1 and S2 Respiratory: No respiratory distress. Breath sounds normal. No Wheezing. No rales Abdomen: Soft and nontender. No rigidity. No distention. Skin: Skin warm and dry. Normal skin color. Normal skin turgor. Extremities: No lower extremity edema. No Lacerations. No Rash Neuro: Oriented X 3. No motor deficit. No sensory deficit. Moving all extremities. No slurred speech. CN 2 through 12 grossly intact Psych: calm, cooperative, normal affect Course Course Course Narrative: Orthostatic vitals positive. Patient was given 1 L of normal saline. After normal saline, patient's vitals were negative, however patient had slight dizziness whenever she stood up. Patient given 1 more L of normal saline and meclizine. Patient is not dizzy when she is lying down. Only when she stands up After 2 L of normal saline and meclizine, patient feeling much better. Patient ambulatory to the bathroom with steady gait, no dizziness. Medical Decision Making Lab Data Result diagrams: 04/29/22 23:53 04/29/22 23:52 Labs: Lab Results 04/29/22 04/29/22 04/29/22 Range/Units 23:52 23:53 23:53 WBC 5.8 (4.8-10.8) X10*3/uL RBC 4.06 L (4.20-5.50) X10*6/uL Hgb 11.6 L (12.0-16.0) g/dl Hct 35.9 L (37.0-47.0) % MCV 88.4 (80.0-98.0) fL MCH 28.6 (27.0-33.0) pg MCHC 32.3 (31.0-35.0) g/dl RDW 14.3 (11.0-16.0) % Plt Count 248 (160-400) X10*3/uL MPV 8.7 L (9.4-12.3) fL Immature Gran % (Auto) 0.2 (0.0-0.4) % Neut % (Auto) 65.7 (45-73) % Lymph % (Auto) 22.1 (20-40) % [place] % (Auto) 9.9 (2-11) % Eos % (Auto) 1.9 (0-4) % Baso % (Auto) 0.2 (0-2) % Lymph # (Auto) 1.3 (1.2-4.9) X10*3/uL [place] # (Auto) 0.6 (0.1-1.2) X10*3/uL Eos # (Auto) 0.1 (0.0-0.4) X10*3/uL Baso # (Auto) 0.0 (0.0-0.2) X10*3/uL Abs Immat Gran (auto) 0.01 (0.00-0.03) X10*3/uL Absolute Neuts (auto) 3.8 (2.0-8.3) x10*3/uL Absolute Nucleated RBC 0.000 (0.0-0.012) X10*3/uL Nucleated RBC % (auto) 0.0 (0.0-0.2) /100WBC Sodium 140 (135-145) mmol/L Potassium 4.5 (3.3-5.1) mmol/L Chloride 107 (96-108) mmol/L Carbon Dioxide 26 (22-29) mmol/L Anion Gap 12 (12-20) BUN 19 H (9-16) mg/dL Creatinine 0.91 (0.5-1.4) mg/dL Estim Creat Clear Calc 61.6 Estimated GFR > 60 Random Glucose 109 (60-115) mg/dL Calcium 9.1 (8.4-10.2) mg/dL Total Bilirubin 0.4 (0.0-1.0) mg/dL AST 17 (5-31) U/L ALT 15 (0-31) U/L Alkaline Phosphatase 92 (39-117) U/L Troponin I High Sens < 3.5 (<3.5-17.0) ng/L B-Natriuretic Peptide (<100) pg/mL Total Protein 6.4 L (6.5-8.0) g/dL Albumin 4.3 (3.5-5.0) g/dL TSH 4.56 H (0.32-4.0) uIU/mL Free T4 0.71 (0.71-1.85) ng/dL 04/29/22 Range/Units 23:53 WBC (4.8-10.8) X10*3/uL RBC (4.20-5.50) X10*6/uL Hgb (12.0-16.0) g/dl Hct (37.0-47.0) % MCV (80.0-98.0) fL MCH (27.0-33.0) pg MCHC (31.0-35.0) g/dl RDW (11.0-16.0) % Plt Count (160-400) X10*3/uL MPV (9.4-12.3) fL Immature Gran % (Auto) (0.0-0.4) % Neut % (Auto) (45-73) % Lymph % (Auto) (20-40) % [place] % (Auto) (2-11) % Eos % (Auto) (0-4) % Baso % (Auto) (0-2) % Lymph # (Auto) (1.2-4.9) X10*3/uL [place] # (Auto) (0.1-1.2) X10*3/uL Eos # (Auto) (0.0-0.4) X10*3/uL Baso # (Auto) (0.0-0.2) X10*3/uL Abs Immat Gran (auto) (0.00-0.03) X10*3/uL Absolute Neuts (auto) (2.0-8.3) x10*3/uL Absolute Nucleated RBC (0.0-0.012) X10*3/uL Nucleated RBC % (auto) (0.0-0.2) /100WBC Sodium (135-145) mmol/L Potassium (3.3-5.1) mmol/L Chloride (96-108) mmol/L Carbon Dioxide (22-29) mmol/L Anion Gap (12-20) BUN (9-16) mg/dL Creatinine (0.5-1.4) mg/dL Estim Creat Clear Calc Estimated GFR Random Glucose (60-115) mg/dL Calcium (8.4-10.2) mg/dL Total Bilirubin (0.0-1.0) mg/dL AST (5-31) U/L ALT (0-31) U/L Alkaline Phosphatase (39-117) U/L Troponin I High Sens (<3.5-17.0) ng/L B-Natriuretic Peptide 33 (<100) pg/mL Total Protein (6.5-8.0) g/dL Albumin (3.5-5.0) g/dL TSH (0.32-4.0) uIU/mL Free T4 (0.71-1.85) ng/dL Discharge Plan Discharge Clinical Impression: Orthostatic hypotension, Dizziness Patient Disposition: Home, Self-Care Instructions: Hypotension (ED) Prescriptions: No Action methimazole 5 mg tablet 5 mg PO DAILY Qty: 90 3RF bupropion HCl 150 mg tablet extended release 24 hr 150 mg PO QAM fluoxetine 20 mg capsule 20 mg PO DAILY cholecalciferol (vitamin D3) 50 mcg (2,000 unit) capsule 50 mcg PO DAILY gabapentin 100 mg capsule 100 mg PO BID
[2022-04-29 23:43] VITALS: BP 140/70; PULSE 87
[2022-04-29 23:45] VITALS: BP 129/75; PULSE 77
[2022-04-29 23:58] LABS: MANUAL DIFF FLAG NO
[2022-04-29 23:59] LABS: Basophils Percent Auto 0.2 % (0-2); Eosinophils Absolute Auto 0.1 X10*3/uL (0.0-0.4); Eosinophils Percent Auto 1.9 % (0-4); Hematocrit 35.9 % (37.0-47.0); Hemoglobin 11.6 g/dl (12.0-16.0); Imm Gran Abs Auto 0.01 X10*3/uL (0.00-0.03); Imm Gran Pct Auto 0.2 % (0.0-0.4); Lymphocytes Absolute Auto 1.3 X10*3/uL (1.2-4.9); Lymphocytes Percent Auto 22.1 % (20-40); Mean Corpuscular HGB Conc 32.3 g/dl (31.0-35.0); Mean Corpuscular Hemoglobin 28.6 pg (27.0-33.0); Mean Corpuscular Volume 88.4 fL (80.0-98.0); Mean Platelet Volume 8.7 fL (9.4-12.3); Monocytes Absolute Auto 0.6 X10*3/uL (0.1-1.2); Monocytes Percent Auto 9.9 % (2-11); Neutrophils Absolute Auto 3.8 x10*3/uL (2.0-8.3); Neutrophils Percent Auto 65.7 % (45-73); Platelet Count 248 X10*3/uL (160-400); Red Blood Count 4.06 X10*6/uL (4.20-5.50); Red Cell Distribution Width 14.3 % (11.0-16.0); White Blood Count 5.8 X10*3/uL (4.8-10.8)
[2022-04-30] MEDS: Acetaminophen 325 MG TABLET 975 MG PO (00:01)
[2022-04-30] MEDS: Ondansetron ODT 4 MG TAB.RAPDIS TRANSLINGU (00:01)
[2022-04-30 00:18] LABS: B Type Natriuretic Peptide 33 pg/mL (<100); Troponin-I High Sensitivity < 3.5 ng/L (<3.5-17.0)
[2022-04-30 00:43] LABS: TSH reflex Free T4 4.56 uIU/mL (0.32-4.0)
[2022-04-30 01:02] VITALS: BP 150/75; PULSE 68; RESP 16; O2SAT 100
[2022-04-30] MEDS: 0.9 % Sodium Chloride 1,000 ML 999 ML IV (01:06)
[2022-04-30 01:15] LABS: Alanine Aminotransferase 15 U/L (0-31); Albumin Level 4.3 g/dL (3.5-5.0); Alkaline Phosphatase 92 U/L (39-117); Anion Gap 12 (12-20); Aspartate Amino Transferase 17 U/L (5-31); Bilirubin Total 0.4 mg/dL (0.0-1.0); Blood Urea Nitrogen 19 mg/dL (9-16); Calcium 9.1 mg/dL (8.4-10.2); Carbon Dioxide 26 mmol/L (22-29); Chloride 107 mmol/L (96-108); Creatinine Clr Calc Pharmacy 61.6; Estimated Glomerular Filt Rate > 60; Glucose Random 109 mg/dL (60-115); Potassium 4.5 mmol/L (3.3-5.1); Sodium 140 mmol/L (135-145); Total Protein 6.4 g/dL (6.5-8.0)
[2022-04-30 01:35] LABS: Free T4 (Free Thyroxine) 0.71 ng/dL (0.71-1.85)
[2022-04-30 01:52] VITALS: BP 149/69; PULSE 75
[2022-04-30 01:53] VITALS: BP 146/73; PULSE 75
[2022-04-30 01:55] VITALS: BP 142/69; PULSE 74
[2022-04-30 01:57] VITALS: BP 147/73; PULSE 75; RESP 16; O2SAT 100
[2022-04-30] MEDS: Meclizine HCl 25 MG TABLET 50 MG PO (02:06)
[2022-04-30] MEDS: 0.9 % Sodium Chloride 1,000 ML 999 ML IVCONT (02:09)
--- NOTE | 2022-04-30 03:06 | PC.NURSE ---
Patient given 2L fluid via 20g IV in right AC. Patient's partner Lesia was updated on phone with this RN. Additionally, patient expressed on 2 occasions to this RN that patient gives permission for this RN to share updates with coworker Kylie who brought her down. This RN updated coworker on patient's condition. Patient able to ambulate to the bathroom with supervision, no complaints of pain or dizziness.
== END 2022-04-30 03:18 | disposition home or self-care (01) ==
PROVIDERS: Emergency Provider Emergency Medicine
DX: I95.1 Orthostatic hypotension (principal); R06.02 Shortness of breath; R42 Dizziness and giddiness; Z79.899 Other long term (current) drug therapy; Z20.822 Contact with and (suspected) exposure to COVID-19
CPT/HCPCS: 36415; 80053; 83880; 84439; 84443; 84484; 85025; 93005; 96365; 99284

== ENCOUNTER 2023-03-06 10:42 | Outpatient (REF) | payer OTHER, SELFPAY ==
--- NOTE | ~2023-03-06 | MM_ITS ---
EXAMINATION: BONE DENSITOMETRY CLINICAL INDICATION: Vitamin D deficiency, unspecified. COMPARISON: This is the patient's baseline examination. TECHNIQUE: Using a Gravitant DXA System (software version: 13.1) manufactured by [employer], dual-energy x-ray absorptiometry was performed of the lumbar spine and left hip. The images are of good technical quality. Summary results are attached. FINDINGS: AP SPINE L1-L2 (excluding L3 and L4): The data of L1-L4 has been changed to exclude the L3 and L4 vertebral bodies, because mild degenerative changes at these levels may cause overestimation of lumbar spine density. BMD 1.080 g/cm2, Z-score 0.6, T-score -0.7, normal. LEFT FEMUR, NECK: BMD 0.673 g/cm2, Z-score -1.2, T-score -2.6, osteoporosis. LEFT FEMUR, TOTAL: BMD 0.757 g/cm2, Z-score -0.8, T-score -2.0, osteopenia. IDENTIFIED RISK FACTORS: Recurrent falls, secondary osteoporosis, menopause. HISTORY OF FRACTURE: None listed. MEDICATIONS: None listed. MM/XR DEXA axial skeleton IMPRESSION: 1. DIAGNOSIS: Osteoporosis based on the lowest T-score value of -2.6 in the femoral neck applying World Health Organization criteria. 2. 10-YEAR FRACTURE RISK PREDICTION, FRAX: According to the guidelines, FRAX calculation should only be performed on patients in the osteopenia bone density category. Therefore, FRAX was not performed on this patient. 3. Treatment Recommendations: NOF guidelines recommend consideration for treatment in postmenopausal women and men age 50 and older presenting with the following: -A hip or vertebral (clinical or morphometric) fracture. -T-score less than or equal to -2.5 at the femoral neck or spine after appropriate evaluation to exclude secondary causes. -Low bone mass at the hip or spine and a 10-year fracture probability by FRAX of greater than or equal to 3% for hip fracture or greater than or equal to 20% for major osteoporotic fracture based on the [place] adapted WHO algorithm. 4. Other Recommendations: All treatment decisions require clinical judgment and consideration of individual patient factors, including patient preferences, comorbidities, previous drug use, risk factors not captured in the FRAX model (e.g. frailty, falls, vitamin D deficiency, increased bone turnover, interval significant decline in bone density) and possible under or overestimation of fracture risk by FRAX. Additional medical evaluation for secondary cause of low bone mineral density may be appropriate. FUTURE SCAN RECOMMENDATION: People with diagnosed cases of osteoporosis or at high risk for fracture should have regular bone mineral density tests. For patients eligible for Medicare, routine testing is allowed once every 2 years. The testing frequency can be increased to one year for patients who have rapidly progressing disease, those who are receiving or discontinuing medical therapy to restore bone mass, or have additional risk factors.
--- NOTE | ~2023-03-06 | MM_ITS ---
EXAMINATION: MM SCREENING DIGITAL BREAST TOMOSYNTHESIS, BILATERAL CLINICAL INFORMATION: Screening. Asymptomatic. No known family history breast cancer. The lifetime risk of breast cancer based on the Tyrer-Cuzick Model is 6%. COMPARISON: Mammography: 01/13/2016, 09/24/2013 TECHNIQUE: Digital mammography is performed in craniocaudal and mediolateral oblique views along with computer-aided detection (CAD). Digital breast tomosynthesis is performed in implant-displaced craniocaudal and implant-displaced mediolateral oblique views along with computer-aided detection (CAD). Synthesized 2D images are generated from the tomosynthesis. FINDINGS: There are scattered areas of fibroglandular density (ACR BI-RADS breast composition Category b). There are bilateral implants. There is smooth lobulation of the implant contours since prior imaging 2016 greater on right. Bilateral benign capsular calcifications are again seen. There are no significant masses, abnormal calcifications, or other abnormalities. There are some scattered benign round and rim calcifications. No architectural abnormality or developing density. The axilla and skin contours are unremarkable. MM/MM tomosynthesis screen imp BI IMPRESSION: No mammographic evidence of malignancy. ASSESSMENT: BI-RADS 2: Benign RECOMMENDATION: -Routine annual mammography screening. -There is subtle lobulation of the implant contours since prior imaging 2016. MRI may be considered to evaluate implant integrity. This patient's information was entered into a reminder system with a target due date for their next mammogram.
== END 2023-03-06 10:43 | disposition home or self-care (01) ==
LOC: HO.MAMMO 10:42
PROVIDERS: PCP Nurse Practitioner Family; Visit Provider Nurse Practitioner Family
DX: Z12.31 Encounter for screening mammogram for malignant neoplasm of breast (principal); Z13.820 Encounter for screening for osteoporosis; Z78.0 Asymptomatic menopausal state; E55.9 Vitamin D deficiency, unspecified
CPT/HCPCS: 77063; 77067; 77080

== ENCOUNTER 2023-03-29 11:49 | Outpatient (REF) | payer OTHER, SELFPAY ==
[2023-03-29 14:43] LABS: Free T4 (Free Thyroxine) 0.88 ng/dL (0.71-1.85); Thyroid Stimulating Hormone 1.54 uIU/mL (0.32-4.0)
== END 2023-03-29 11:50 | disposition home or self-care (01) ==
LOC: HO.HMGCLDS 11:49
PROVIDERS: PCP Nurse Practitioner Family; Visit Provider Internal Medicine Endocrinology, Diabetes & Metabolism
DX: E05.20 Thyrotoxicosis with toxic multinodular goiter without thyrotoxic crisis or storm (principal)
CPT/HCPCS: 36415; 84439; 84443; 84481

== ENCOUNTER 2023-04-02 08:05 | Outpatient (REF) | payer OTHER, SELFPAY ==
[2023-04-05 02:29] LABS: HPV mRNA E6/E7 rflx Not Detected (Not Detected)
== END 2023-04-02 08:06 | disposition home or self-care (01) ==
LOC: HO.LNP 08:05
PROVIDERS: PCP Nurse Practitioner Family; Visit Provider Obstetrics & Gynecology
DX: Z01.419 Encounter for gynecological examination (general) (routine) without abnormal findings (principal); M81.0 Age-related osteoporosis without current pathological fracture; N95.1 Menopausal and female climacteric states
CPT/HCPCS: 87624; 88142

== ENCOUNTER → 2023-04-25 10:51 | Outpatient (BNVA) | payer OTHER, SELFPAY | PROVIDERS: PCP Nurse Practitioner Family; Visit Provider Nurse Practitioner ==

== ENCOUNTER 2023-06-25 11:16 | Outpatient (AMB) | payer OTHER, SELFPAY ==
--- NOTE | 2023-06-25 11:54 | MHC.OFFWIV ---
Intake Vital Signs 06/25/23 11:56 Weight 171 lb BP 124/80 Blood Pressure Location Lt brachial Position Sitting Pulse 77 Pulse Source Pulse Oximeter Pulse Oximetry (%) 99 Oxygen Delivery Method Room Air Intake Visit Reasons: Ep, Right Knee Pain Intake Note: Patient here for a lot of pain in right knee, hurts when walking or just sitting which has been going on for about 3 days. she states she bumped it but didn't think it was hard enough to cause pain. Patient Tobacco Use Status: Former Tobacco user Quit Date: 1996 Allergies metronidazole [From FLAGYL] Allergy (Severe, Verified 06/25/23 12:17) ANAPHYLAXIS sulfamethoxazole [From Bactrim] Allergy (Severe, Verified 06/25/23 12:17) Palpitations trimethoprim [From Bactrim] Allergy (Severe, Verified 06/25/23 12:17) Palpitations sulfite [Sulfite] Allergy (Intermediate, Verified 06/25/23 12:17) BISULFITES-ITCHING IN MOUTH & THROAT,SHORTNESS OF BREATH phenylalanine [PHENYLALANINE] Allergy (Mild, Verified 06/25/23 12:17) UNKNOWN barber pepper [GREEN PEPPER] Allergy (Unknown, Verified 06/25/23 12:17) LIP SWELLING From FLAGYL Allergy (Severe, Uncoded 06/25/23 12:17) ANAPHYLAXIS bisulfites Allergy (Unknown, Uncoded 06/25/23 12:17) itching peppers Allergy (Unknown, Uncoded 06/25/23 12:17) Unknown Medication List - Last Reconciled 06/25/23 by Paddy Zarate MD alendronate 70 mg PO QWEEK atomoxetine 25 mg PO DAILY bisacodyl (Dulcolax (bisacodyl)) 10 mg (2 x 5 mg) PO BEDTIME 2 days bupropion HCl 150 mg PO QAM fluoxetine 60 mg PO DAILY lurasidone (Latuda) 20 mg PO DAILY meclizine 25 mg PO TID PRN methimazole 5 mg PO DAILY polyethylene glycol 3350 (Miralax) 17 grams PO DAILY 30 days Do you need a note to return to daycare/school/sports/work: Yes HPI Ep, Right Knee Pain HPI Details 67-year-old female presents to the office for a sick visit. Patient is reporting symptoms of right knee pain for the past week. Does not recall any fall or injury. Pain is on the medial side of the knee. Patient is having difficulty walking, climbing stairs etc. PFSH Medical History (Updated 06/25/23 @ 12:34 by Paddy Zarate MD) Hyperthyroidism Multinodular thyroid Subclinical hyperthyroidism Vitamin D deficiency Surgical History (Updated 04/25/23 @ 11:11 by PORTER Walters) H/O colonoscopy Hx laparoscopic cholecystectomy Hx of breast augmentation Hx of cataract removal with insertion of prosthetic lens Hx of eye surgery Hx of foot surgery Hx of rhinoplasty Family History Father No problems noted. 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 Pain on extreme flexion. Assessment & Plan Assessment & Plan (1) Sprain of right knee: Code(s): S83.91XA - Sprain of unspecified site of right knee, initial encounter Plan X-ray images were personally reviewed by me. Pt has a brace and I encouraged her to wear it. NSAIDS called in. Coding Level of Care Code Est Pt Level 4 (80479) Diagnoses Sprain of right knee S83.91XA
[2023-06-25 11:56] VITALS: BP 124/80; PULSE 77; O2SAT 99
== END 2023-06-25 13:02 | disposition home or self-care (01) ==
PROVIDERS: PCP Nurse Practitioner Family; Visit Provider Internal Medicine
DX: S83.91XA Sprain of unspecified site of right knee, initial encounter (principal)
CPT/HCPCS: 99214

== ENCOUNTER 2023-06-25 12:18 | Outpatient (REF) | payer OTHER, SELFPAY ==
--- NOTE | ~2023-06-25 | XR_ITS ---
EXAMINATION: XR KNEE, RIGHT CLINICAL INFORMATION: Sprain COMPARISON: None available. TECHNIQUE: Four views of the right knee. Frontal lateral and 2 oblique FINDINGS: No fracture or joint effusion. Alignment is anatomic. Joint spaces are maintained. No abnormal soft tissue calcification. XR/XR knee RT 4V IMPRESSION: No fracture or dislocation.
== END 2023-06-25 12:19 | disposition home or self-care (01) ==
LOC: HO.HMGCX 12:18
PROVIDERS: PCP Nurse Practitioner Family; Visit Provider Internal Medicine
DX: S83.91XA Sprain of unspecified site of right knee, initial encounter (principal)
CPT/HCPCS: 73564

== ENCOUNTER 2023-06-27 16:48 | Emergency (ER) | payer OTHER, SELFPAY ==
--- NOTE | ~2023-06-27 | US_ITS ---
EXAMINATION: US VENOUS ULTRASOUND WITH DOPPLER LOWER EXTREMITY, RIGHT CLINICAL INFORMATION: Pain COMPARISON: None available. TECHNIQUE: Ultrasound of the deep veins is performed from the hip to the calf with compression sonography and color and pulse Doppler assessment. Spectral analysis with color-flow imaging is performed. FINDINGS: There is normal venous compression and respiratory variation and augmented flow. The visualized common femoral vein, superficial femoral vein, profunda femoral vein, popliteal vein, and the trifurcation region shows no evidence of deep venous thrombosis. There is no significant popliteal fossa cyst. Contralateral common femoral vein is patent. If the patient's symptoms persist, followup ultrasound in 5 days 7 days might be of value to exclude proximal propagation from a non-visualized calf vein. US/US venous duplex LE RT IMPRESSION: No DVT demonstrated in the right lower extremity.
[2023-06-27 17:26] VITALS: BP 121/64; PULSE 80; RESP 17; TEMP 36.1; O2SAT 100; BMI 29.2
[2023-06-27] MEDS: Lidocaine 4 % Patch ADH..PATCH 1 PATCH TRANSDERMA (20:11)
--- NOTE | 2023-06-27 20:40 | ED.GENADULT ---
HPI - General Adult General Chief complaint: Extremity Problem Stated complaint: R legs worsen x 2 days Time Seen by Provider: 06/27/23 19:40 Source: patient, RN notes reviewed and old records reviewed Mode of arrival: ambulatory Limitations: no limitations History of Present Illness HPI narrative: 67-year-old female presents for evaluation of right knee pain. Patient reports that she has had pain for the last 4 days or so She denies any specific injury to the area. She went to urgent care 2 days ago and had an x-ray but was told nothing was wrong She was given a knee brace but ?that only makes it worse. ? She has been using ibuprofen and Tylenol with minimal improvement her symptoms Related Data Home Medications Medication Instructions Recorded Confirmed bupropion HCl 150 mg 24 hr tablet, 150 mg PO QAM 09/28/20 01/15/23 extended release atomoxetine 25 mg capsule 25 mg PO DAILY 01/15/23 01/15/23 fluoxetine 20 mg capsule 60 mg PO DAILY 01/15/23 01/15/23 lurasidone 20 mg tablet (Latuda) 20 mg PO DAILY 04/02/23 Previous Rx's Medication Instructions Recorded methimazole 5 mg tablet 5 mg PO DAILY #90 tabs 10/28/20 meclizine 25 mg tablet 25 mg PO TID PRN motion sickness 04/30/22 #10 tabs alendronate 70 mg tablet 70 mg PO QWEEK #14 tabs 04/02/23 bisacodyl 5 mg tablet,delayed 10 mg PO BEDTIME 2 days #4 tabs 04/25/23 release (Dulcolax (bisacodyl)) polyethylene glycol 3350 17 17 g PO DAILY 30 days #510 grams 04/25/23 gram/dose oral powder (Miralax) meloxicam 15 mg tablet 15 mg PO DAILY #14 tabs 06/25/23 diclofenac sodium 1 % topical gel 2 g topical QID #100 grams 06/27/23 (Arthritis Pain (diclofenac)) Allergies Allergy/AdvReac Type Severity Reaction Status Date / Time metronidazole [From FLAGYL] Allergy Severe ANAPHYLAXIS Verified 06/25/23 12:17 sulfamethoxazole Allergy Severe Palpitation Verified 06/25/23 12:17 [From Bactrim] s trimethoprim [From Bactrim] Allergy Severe Palpitation Verified 06/25/23 12:17 s sulfite [Sulfite] Allergy Intermediate BISULFITES-ITCHING Verified 06/25/23 12:17 IN MOUTH & THROAT,SHORTNESS OF BREATH phenylalanine [PHENYLALANINE] Allergy Mild UNKNOWN Verified 06/25/23 12:17 barber pepper [GREEN PEPPER] Allergy Unknown LIP Verified 06/25/23 12:17 SWELLING From FLAGYL Allergy Severe ANAPHYLAXIS Uncoded 06/25/23 12:17 bisulfites Allergy Unknown itching Uncoded 06/25/23 12:17 peppers Allergy Unknown Unknown Uncoded 06/25/23 12:17 Review of Systems Constitutional: Constitutional: Reports as per HPI, Denies chills, Denies fatigue, Denies fever(s) and Denies headache(s) ENT: Denies headache(s) Cardiovascular: Cardiovascular: Denies chest pain and Denies dyspnea Respiratory: Respiratory: Denies cough and Denies dyspnea Gastrointestinal: Gastrointestinal: Denies abdominal pain, Denies constipation and Denies vomiting Genitourinary: Genitourinary: Denies dysuria Musculoskeletal: Musculoskeletal: Reports arthralgias, Reports joint swelling and Reports limited range of motion Neurologic: Denies headache(s) and Denies focal weakness Endocrine: Endocrine: Denies fatigue PMFSH Past Medical History Medical History (Updated 06/27/23 @ 20:44 by Sundeep Mason) Hyperthyroidism Multinodular thyroid Subclinical hyperthyroidism Vitamin D deficiency Surgical History (Updated 04/25/23 @ 11:11 by PORTER Walters) H/O colonoscopy Hx laparoscopic cholecystectomy Hx of breast augmentation Hx of cataract removal with insertion of prosthetic lens Hx of eye surgery Hx of foot surgery Hx of rhinoplasty Family History Family History Father No problems noted. 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 occupational exposures/hazards: Yes Cognitive needs: No Hearing needs: No Vision needs: No Physical Exam ED Vital Signs: Vital Signs - 24 hr 08/17/23 17:26 Temperature 97.0 F Pulse Rate 80 Respiratory Rate 17 Blood Pressure 121/64 Pulse Oximetry 100 Oxygen Delivery Method Room Air BMI result Body Mass Index 29.2 Const General: healthy appearing, comfortable, no acute distress, alert and awake Nutritional Appearance: well nourished Orientation/consciousness: patient oriented x3 HENMT Head: Yes normocephalic and Yes atraumatic Eyes Eyelids: Yes eyelids normal Conjunctivae: conjunctivae normal Sclerae: sclerae normal Corneas: corneas normal Pupils: Equal, round and reactive pupils present EOM: EOMs intact bilaterally Resp Effort & Inspection: normal respiratory effort, able to speak in complete sentences and not labored Cardio Rate: regular rate Rhythm: regular rhythm GI Inspection: No distended Palpation (GI): Soft to palpation, not firm, nontender, no guarding and not rigid Auscultation: normoactive bowel sounds Skin General skin exam: no rashes or lesions noted and elasticity normal Neuro General: patient oriented x3 Cranial nerves: Yes Equal, round and reactive pupils present and Yes Bilaterally intact EOM present Cognition (Neuro): normal cognition Extrem Other: Patient has good range of motion flexion extension the right knee. She is tender to palpation on the medial aspect. No edema, no joint effusion, no erythema. Patient also has right calf tenderness. No palpable cords. Distal sensation and capillary refill intact Medications Administered Discontinued Medications Generic Name Dose Route Start Last Admin Trade Name Freq PRN Reason Stop Dose Admin Lidocaine 1 patch 06/27/23 19:57 06/27/23 20:11 Lidocaine 4 % Patch Adh..Patch TRANSDERMA 06/27/23 19:58 1 patch ONCE ONE Administration Protocol Medical Decision Making Medical Decision Making [facility] Narrative: 67-year-old female presents for evaluation of atraumatic right knee pain. Denies any specific injury. She does have calf tenderness with ultrasound to rule out DVT. She had an x-ray 2 days ago and has not had any recent injury, we will not repeat radiographic imaging Differential Diagnosis Differential Diagnoses: The differential diagnosis associated with the presentation includes Knee sprain Osteoarthritis Joint effusion Gout DVT Discharge Plan Discharge Clinical Impression: Acute pain of right knee Instructions: Knee Pain (ED) Additional Instructions: Your ultrasound was negative for DVT. Continue using ibuprofen/Tylenol You may use the Voltaren cream up to every 6 hours Follow-up with your primary doctor Prescriptions: New diclofenac sodium [Arthritis Pain (diclofenac)] 1 % gel 2 g topical QID Qty: 100 0RF Rx Instructions: apply to single elbow, wrist or hand; for hand includes palm/fingers/back of hand No Action methimazole 5 mg tablet 5 mg PO DAILY Qty: 90 3RF meclizine 25 mg tablet 25 mg PO TID PRN (Reason: motion sickness) Qty: 10 0RF atomoxetine 25 mg capsule 25 mg PO DAILY meloxicam 15 mg tablet 15 mg PO DAILY Qty: 14 0RF bupropion HCl 150 mg tablet extended release 24 hr 150 mg PO QAM fluoxetine 20 mg capsule 60 mg PO DAILY lurasidone [Latuda] 20 mg tablet 20 mg PO DAILY Rx Instructions: must administer with food (at least 350 calories) alendronate 70 mg tablet 70 mg PO QWEEK Qty: 14 3RF polyethylene glycol 3350 [Miralax] 17 gram/dose powder 17 g PO DAILY 30 Days Qty: 510 0RF bisacodyl [Dulcolax (bisacodyl)] 5 mg tablet,delayed release (DR/EC) 10 mg PO BEDTIME 2 Days Qty: 4 0RF Stand Alone Forms: Work/School Release
[2023-06-27 21:22] VITALS: BP 145/64; PULSE 74; RESP 18; TEMP 37; O2SAT 100
== END 2023-06-27 21:27 | disposition home or self-care (01) ==
PROVIDERS: Emergency Provider Emergency Medicine; PCP Nurse Practitioner Family
DX: M25.561 Pain in right knee (principal); M79.661 Pain in right lower leg; Z87.891 Personal history of nicotine dependence
CPT/HCPCS: 93971; 99283; 99284

== ENCOUNTER 2023-07-04 05:20 | Outpatient (REF) | payer OTHER, SELFPAY ==
--- NOTE | ~2023-07-04 | XR_ITS ---
EXAMINATION: XR KNEE, RIGHT CLINICAL INFORMATION: Pain. COMPARISON: Radiographs dated 06/25/2023. TECHNIQUE: AP, lateral and sunrise views of the right knee are submitted. FINDINGS: Bony alignment and mineralization are normal. The lateral, medial and patellofemoral joint space compartments are well-maintained. There is slight peripheral osteophyte formation at the lateral articular surface of the patella. No fracture, dislocation or joint effusion is seen. There is no foreign body. XR/XR knee RT 3V IMPRESSION: 1. There is minimal osteoarthritic change of the right patellofemoral compartment. 2. No fracture, dislocation or joint effusion is seen.
== END 2023-07-04 05:21 | disposition home or self-care (01) ==
LOC: HO.HOSX 05:20
PROVIDERS: Visit Provider Orthopaedic Surgery
DX: S83.241A Other tear of medial meniscus, current injury, right knee, initial encounter (principal)
CPT/HCPCS: 73562

== ENCOUNTER 2023-07-04 13:10 | Outpatient (AMB) | payer OTHER, SELFPAY ==
--- NOTE | 2023-07-04 13:41 | A.OFFVIS_ITS ---
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 The patient describes her pain as sharp in nature. Most of the pain is along the medial aspect of her knee. Patient states that she 1st injured her knee several years ago while skiing. She twisted her knee and had acute onset of pain. Since that time her symptoms have gotten worse in spite of continued non operative treatments. She did reaggravated her right knee several weeks ago. She once again twisted it and had worsening pain. She states that her right knee will give out several times per day. She has done physical therapy which aggravated her pain. She has also tried Tylenol and anti- inflammatory medicines which gave her minimal relief. She has had injections in the past which gave her no relief. She states that her right knee will give out several times per day. She has not been able to work lately because of her knee pain and instability. Allergies metronidazole [From FLAGYL] Allergy (Severe, Verified 07/04/23 13:54) ANAPHYLAXIS sulfamethoxazole [From Bactrim] Allergy (Severe, Verified 07/04/23 13:54) Palpitations trimethoprim [From Bactrim] Allergy (Severe, Verified 07/04/23 13:54) Palpitations sulfite [Sulfite] Allergy (Intermediate, Verified 07/04/23 13:54) BISULFITES-ITCHING IN MOUTH & THROAT,SHORTNESS OF BREATH phenylalanine [PHENYLALANINE] Allergy (Mild, Verified 07/04/23 13:54) UNKNOWN barber pepper [GREEN PEPPER] Allergy (Unknown, Verified 07/04/23 13:54) LIP SWELLING From FLAGYL Allergy (Severe, Uncoded 07/04/23 13:54) ANAPHYLAXIS bisulfites Allergy (Unknown, Uncoded 07/04/23 13:54) itching peppers Allergy (Unknown, Uncoded 07/04/23 13:54) Unknown Medication List - Last Reconciled 07/04/23 by Joseph Zhang MD alendronate 70 mg PO QWEEK atomoxetine 25 mg PO DAILY bisacodyl (Dulcolax (bisacodyl)) 10 mg (2 x 5 mg) PO BEDTIME 2 days bupropion HCl 150 mg PO QAM diclofenac sodium 1% (Arthritis Pain (diclofenac)) 2 grams topical QID fluoxetine 60 mg PO DAILY lurasidone (Latuda) 20 mg PO DAILY meclizine 25 mg PO TID PRN meloxicam 15 mg PO DAILY methimazole 5 mg PO DAILY polyethylene glycol 3350 (Miralax) 17 grams PO DAILY 30 days PFS Medical History (Updated 07/04/23 @ 14:05 by Joseph Zhang MD) Hyperthyroidism Multinodular thyroid Subclinical hyperthyroidism Vitamin D deficiency Surgical History (Reviewed 07/04/23 @ 13:45 by Medina Wilson [facility]) H/O colonoscopy Hx laparoscopic cholecystectomy Hx of breast augmentation Hx of cataract removal with insertion of prosthetic lens Hx of eye surgery Hx of foot surgery Hx of rhinoplasty Family History Father No problems noted. 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/hazards: Yes Cognitive needs: No Hearing needs: No Vision needs: No Physical Exam Vital Signs: BMI result Body Mass Index 29.2 Const Other: Well-nourished well-developed very friendly female awake alert and oriented x3 in no acute distress Extrem Other: Bilateral lower extremity examination shows good capillary refill, no skin lesions noted, normal sensation light touch Right knee examination shows a minimal effusion, minimal crepitus with range of motion, tenderness along her medial joint line, positive Narinder's test, no instability Results Reviewed Results Reviewed: X-rays of the patient's right knee show mild diffuse joint space narrowing, no acute bony abnormalities Assessment & Plan Assessment & Plan (1) Tear of medial meniscus of right knee: Code(s): S83.241A - Other tear of medial meniscus, current injury, right knee, initial encounter Plan: Ms. Saba presents with progressively worsening right knee pain and mechanical symptoms due to possible tearing of her medial meniscus. Thus, send her for an MRI of her right knee for further evaluation. I will see her back once the MRI is completed to discuss the findings and treatment options. I will keep her out of work until her symptoms improve. Feel free to call me at any time should questions regarding her orthopedic management arise. Thank you very much for asking me to see this very friendly patient. I spent 22 minutes in reviewing the patient's records and imaging studies, seeing the patient and documenting in the medical record. Orders: Orders XR knee RT 3V Today M25.561 - Pain in right knee MR knee RT wo con Today S83.241A - Other tear of medial meniscus, current injury, right knee, initial encounter Coding Level of Care Code New Pt Level 2 (73781) Diagnoses Tear of medial meniscus of right knee S83.241A
[2023-07-04 13:46] VITALS: BMI 29.2
== END 2023-07-04 14:06 | disposition home or self-care (01) ==
PROVIDERS: PCP Nurse Practitioner Family; Visit Provider Orthopaedic Surgery
DX: S83.241A Other tear of medial meniscus, current injury, right knee, initial encounter (principal)
CPT/HCPCS: 99202

== ENCOUNTER 2023-08-09 07:27 | Outpatient (REF) | payer OTHER, SELFPAY ==
--- NOTE | ~2023-08-09 | MR_ITS ---
EXAMINATION: MR KNEE WITHOUT CONTRAST, RIGHT CLINICAL INFORMATION: Right knee popping, stiffness. Pain. Throbbing. COMPARISON: Knee radiographs dated 07/04/2023 TECHNIQUE: MRI of the knee without contrast was performed using routine sequences on a high-field scanner. FINDINGS: MENISCI: Medial Meniscus: A high-grade radial tear of the posterior horn propagates from the inner margin at the junction of the posterior horn and body through the meniscal periphery. A second inner margin radial component is suspected anterior to this. Surrounding soft tissues are edematous. Meniscal body is partially extruded. Lateral Meniscus: Incomplete discoid morphology. A horizontal tear is present at the inner margin of the body. Degenerative intrasubstance signal is present in the anterior horn. LIGAMENTS: Cruciate: Intact Collateral: Edema signal around the MCL is likely reactive to the underlying meniscal abnormality. Collateral ligaments are intact. EXTENSOR MECHANISM: Quadriceps and patellar tendons are intact. Minimal edema signal in the superolateral aspect of Hoffa's fat pad. ARTICULAR CARTILAGE/BONE: Patellofemoral Compartment: Moderate nonuniform chondral thinning is present at the median ridge and medial facet of the patella with full-thickness chondral fissures, cortical irregularity, and marginal osteophytes. At the inferior aspect of the medial trochlear facet, there is a 1 x 0.5 cm focus of partial-thickness cartilage loss, full-thickness chondral fissuring, and cortical irregularity. Trochlear cartilage is otherwise well-preserved. Medial Compartment: Mild partial-thickness chondral thinning is present at the medial femoral condyle and medial tibial plateau. There is a near full-thickness chondral fissure at the medial femoral condyle weight-bearing surface. Edema signal at the medial third of the medial tibial plateau is reactive to the adjacent meniscal tear. Lateral Compartment: Normal. JOINT FLUID AND BURSAE: Small joint effusion. No Vernon's cyst. Minimal pes anserine bursitis. MR/MR knee RT wo con IMPRESSION: High-grade radial tear of the posterior horn of the medial meniscus with partial extrusion of the meniscal body. Horizontal tear of the lateral meniscal body with an incomplete discoid morphology. [id number]-bclgnwez patellofemoral and mild medial compartment osteoarthritis. Small joint effusion.
== END 2023-08-09 07:28 | disposition home or self-care (01) ==
LOC: HO.MRI 07:27
PROVIDERS: PCP Nurse Practitioner Family; Visit Provider Orthopaedic Surgery
DX: S83.241A Other tear of medial meniscus, current injury, right knee, initial encounter (principal)
CPT/HCPCS: 73721

== ENCOUNTER 2023-12-11 09:33 | Outpatient (AMB) | payer OTHER, SELFPAY ==
--- NOTE | 2023-12-11 09:37 | MHC.PC.OV ---
Vital Signs 12/11/23 09:38 Height 5 ft 4 in Weight 174 lb BMI 29.9 BP 120/60 Blood Pressure Location Rt brachial Position Sitting Pulse 78 Pulse Source Pulse Oximeter Pulse Oximetry (%) 100 Oxygen Delivery Method Room Air Intake Visit Reasons: Right Leg F/U Intake Note: Pt is here to follow up on her right leg pain Allergies metronidazole [From FLAGYL] Allergy (Severe, Verified 12/11/23 09:40) ANAPHYLAXIS sulfamethoxazole [From Bactrim] Allergy (Severe, Verified 12/11/23 09:40) Palpitations trimethoprim [From Bactrim] Allergy (Severe, Verified 12/11/23 09:40) Palpitations sulfite [Sulfite] Allergy (Intermediate, Verified 12/11/23 09:40) BISULFITES-ITCHING IN MOUTH & THROAT,SHORTNESS OF BREATH phenylalanine [PHENYLALANINE] Allergy (Mild, Verified 12/11/23 09:40) UNKNOWN barber pepper [GREEN PEPPER] Allergy (Unknown, Verified 12/11/23 09:40) LIP SWELLING From FLAGYL Allergy (Severe, Uncoded 12/11/23 09:40) ANAPHYLAXIS bisulfites Allergy (Unknown, Uncoded 12/11/23 09:40) itching peppers Allergy (Unknown, Uncoded 12/11/23 09:40) Unknown Tobacco use date assessed: 12/11/23 Fall risk assessment: 2 + Falls in past year Last assessed Fall Risk: 12/11/23 Dental Screening Dental Screen Date: 12/11/23 Did you have a dental visit in the last 12 months?: Yes Did you have a dental problem in the last 6 months where you did not have access to dental care?: No Was dental information given to patient?: Patient has dentist HPI Right Leg F/U HPI Details Anxiety/depression: Pt reports doing well. She is currently taking bupropion 150mg and fluoxetine 60mg. Denies any SI and HI. PFSH Medical History Hyperthyroidism Vitamin D deficiency Subclinical hyperthyroidism Multinodular thyroid Surgical History H/O colonoscopy Hx of eye surgery Hx laparoscopic cholecystectomy Hx of cataract removal with insertion of prosthetic lens Hx of rhinoplasty Hx of breast augmentation Hx of foot surgery Family History Father No problems noted. Mother Substance use disorder Mental health disorder Brother Substance use disorder Mental health disorder Social History Housing: House Alcohol intake: never Patient Tobacco Use Status: Former Tobacco user Quit Date: 1996 e-Cigarette/Vaping Use: Currently Using Second Hand Smoke Exposure: Yes service: No Current occupational status: employed Current occupation: [employer] Current occupational exposures/hazards: Yes Cognitive needs: No Hearing needs: No Vision needs: No Questionnaire PHQ-9 Over the last 2 weeks, how often have you been bothered by any of the following problems? 1. Little interest or pleasure in doing things: several days 2. Feeling down, depressed, or hopeless: several days 3. Trouble falling or staying asleep, or sleeping too much: several days 4. Feeling tired or having little energy: several days 5. Poor appetite or overeating: not at all 6. Feeling bad about yourself - or that you are a failure or have let yourself or your family down: not at all 7. Trouble concentrating on things, such as reading the newspaper or watching television: not at all 8. Moving or speaking so slowly that other people could have noticed. Or the opposite - being so fidgety or restless that you have been moving around a lot more than usual: not at all 9. Thoughts that you would be better off or of hurting yourself in some way: not at all Total score: 4 Depression Screening Interpretation: Negative Depression Screening Done: Yes Source: Developed by Drs. Zander Aguila, Yuni Mcclure, Wilber Mays and colleagues, with an educational dino from [employer]. Thrive Questionnaire Date Thrive assessed: 12/11/23 I am a: Patient What is your living situation today?: I have a steady place to live Within the past 12 months, did the food you bought not last and you didn't have the money to get more?: Never true Within the past 12 months, did you worry whether your food would run out before you got money to buy more?: Never true Do you have trouble paying for medicines?: No Do you have trouble getting transportation to medical appointments?: No Do you have trouble paying your heating and electricity bill?: No Do you have trouble taking care of your child, family member or friend?: No Do you have trouble with day-to-day activities such as bathing, preparing meals, shopping, managing finances, etc.?: No Are you currently unemployed and looking for a job?: No Are you interested in more education?: No THRIVE Score: 0 AUDIT C Alcohol Use Questionnaire (AUDIT-C) 1. How often do you have a drink containing alcohol?: Never Total Score: 0 CRISSY-7 AMB Questionnaire CRISSY-7 Date CRISSY - 7 assessed: 12/11/23 Feeling nervous, anxious, or on edge: 1 = Several days Not being able to stop or control worryin = Not at all Worrying too much about different things: 1 = Several days Trouble relaxin = Not at all Being so restless that it is hard to sit still: 0 = Not at all Becoming easily annoyed or irritable: 1 = Several days Feeling afraid as if something awful might happen: 1 = Several days Total CRISSY-7 score (0-4 normal; 5-9 mild; 10-14 moderate; 15-21 severe): 4 Source: Developed by Drs. Zander Aguila, Yuni Mcclure, Wilber Mays and colleagues, with an educational dino from [employer]. Review of Systems Const Reports as per HPI Physical exam (Primary Care) Vital Signs: Last Vital Signs Pulse 78 12/11/23 09:38 BP 120/60 12/11/23 09:38 Pulse Ox 100 12/11/23 09:38 Oxygen Delivery Method Room Air 12/11/23 09:38 BMI result Body Mass Index 29.9 Tobacco/Smoking Status: Tobacco use Status Tobacco use date assessed 12/11/23 12/11/23 09:44 Patient Tobacco Use Status Former Tobacco user 12/11/23 09:37 e-Cigarette/Vaping Use Currently Using 12/11/23 09:37 Depression Screening Interpretation: Negative Thrive Assessment: Date of Thrive Assessment Date Thrive assessed 01/15/23 12/11/23 09:37 Const General: cooperative Orientation/consciousness: patient oriented x3 Resp Effort & Inspection: normal respiratory effort Auscultation: clear to auscultation bilaterally Cardio Rate: regular rate Rhythm: regular rhythm Heart sounds: S1 normal heart sound present, S2 normal heart sound present and no murmurs Neuro Other: head tic noted General: patient oriented x3 Psych Appearance: grossly normal Mental Status: mental status grossly normal Speech and movement: Normal speech and movement present Affect: normal affect Attitude: cooperative Thought process: Normal thought process present Thought content: Normal thought content present Insight: Good insight present (Psych) Judgement: Good judgement present (Psych) Assessment and Plan Assessment & Plan (1) Vitamin D deficiency: Code(s): E55.9 - Vitamin D deficiency, unspecified Plan: Vitamin D ordered (2) Anxiety and depression: Code(s): F41.9 - Anxiety disorder, unspecified; F32.A - Depression, unspecified Plan: Continue fluoxetine and bupropion Plan The patient agreed to the use of a faculty i on call medical assistant for this encounter. Scribed for EULOGIO Thomas-ANA by Radha Crowell faculty i on call medical assistant, on 12/11/2023 at 09:50 EST. Orders: Orders Comprehensive [place]. Panel Fast Today Z00.00 - Encounter for general adult medical examination without abnormal findings UA CC w/rflx Micro + Cult Today Z00.00 - Encounter for general adult medical examination without abnormal findings Lipid Panel Today Z00.00 - Encounter for general adult medical examination without abnormal findings Complete Blood Count Auto Diff Today Z00.00 - Encounter for general adult medical examination without abnormal findings TSH reflex Free T4 Today Z00.00 - Encounter for general adult medical examination without abnormal findings Vitamin D 25-OH Total Today E55.9 - Vitamin D deficiency, unspecified Coding Level of Care Code Est Pt Level 3 (00756) Est Pt Prev Care >65y(20629) Diagnoses Vitamin D deficiency E55.9 Anxiety and depression F41.9; F32.A
[2023-12-11 09:38] VITALS: BP 120/60; PULSE 78; O2SAT 100; BMI 29.9
== END 2023-12-11 11:03 | disposition home or self-care (01) ==
PROVIDERS: PCP Nurse Practitioner Family; Visit Provider Nurse Practitioner Family
DX: E55.9 Vitamin D deficiency, unspecified (principal); F41.9 Anxiety disorder, unspecified; F32.A Depression, unspecified
CPT/HCPCS: 99213

== ENCOUNTER 2023-12-23 13:17 | Outpatient (REF) | payer OTHER, SELFPAY ==
--- NOTE | ~2023-12-23 | XR_ITS ---
EXAMINATION: XR SHOULDER, RIGHT CLINICAL INFORMATION: Pain in right shoulder COMPARISON: None available. TECHNIQUE: AP neutral, Grashey, scapular Y views of the right shoulder. FINDINGS: The bones are intact. Sclerotic density is seen within the humeral neck area. No fracture. Glenohumeral and acromioclavicular alignment is anatomic. There is moderate degenerative change of the acromioclavicular joint. There is slight narrowing of the glenohumeral joint. A tiny density inferior to the inferior glenoid may represent a labral tear. No abnormal soft tissue calcifications. XR/XR shoulder RT min 2V IMPRESSION: 1. No acute bony abnormality. 2. Degenerative change of the acromioclavicular joint and the glenohumeral joint. 3. Question of a labral tear. MRI scan could be obtained for further evaluation.
== END 2023-12-23 13:18 | disposition home or self-care (01) ==
LOC: HO.HOSX 13:17
PROVIDERS: PCP Nurse Practitioner Family; Visit Provider Physician Assistant
DX: S42.291D Other displaced fracture of upper end of right humerus, subsequent encounter for fracture with routine healing (principal)
CPT/HCPCS: 73030

== ENCOUNTER 2023-12-23 13:17 | Outpatient (AMB) | payer OTHER, SELFPAY ==
[2023-12-23 13:21] VITALS: BMI 29.9
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
== END 2023-12-23 15:01 | disposition home or self-care (01) ==
PROVIDERS: PCP Nurse Practitioner Family; Visit Provider Physician Assistant
DX: S42.291A Other displaced fracture of upper end of right humerus, initial encounter for closed fracture (principal); V49.40XA Driver injured in collision with unspecified motor vehicles in traffic accident, initial encounter; Z04.3 Encounter for examination and observation following other accident
CPT/HCPCS: 99203

== ENCOUNTER 2023-12-25 13:40 | Outpatient (REF) | payer OTHER, SELFPAY ==
--- NOTE | ~2023-12-25 | US_ITS ---
EXAMINATION: US THYROID CLINICAL INFORMATION: Multinodular goiter. Prior benign biopsy 09/10/2019 nodules in the left mid lobe, right middle lobe and right lower lobe. COMPARISON: Ultrasound soft tissue head/neck thyroid dated 10/16/2021 and 03/28/2021. TECHNIQUE: Linear transducer grayscale and color Doppler examination with attention to the region of the thyroid. FINDINGS: SIZE: Measurements of the thyroid lobes and nodules are given in sagittal, anteroposterior and transverse dimensions respectively. Right Thyroid Lobe: 6.0 x 3.2 x 3.0 cm, volume 30.1 mL. Previously 5.8 x 3.1 x 2.8 cm, volume 26.2 mL. Parenchyma: The gland echotexture is heterogeneous. Thyroid vascularity is increased. Left Thyroid Lobe: 5.9 x 2.8 x 3.0 cm, volume 25.9 mL. Previously 5.2 x 3.1 x 2.6 cm, volume 22.4 mL. Parenchyma: The gland echotexture is heterogeneous. Thyroid vascularity is increased. Isthmus: 0.6 cm in maximum AP dimension. Previously 0.6 cm. Estimated total number of nodules greater than or equal to 1 cm: More than 10. Right Of [address] Supervisor nodules are described as follows: 1. Location: Right superior. Size: 1.9 x 1.6 x 1.7 cm, volume 2.60 mL. Previously: 1.5 x 1.4 x 1.5 cm, volume 1.64 mL. Nodule characteristics: Composition: Mixed cystic and solid (1). Echogenicity: Cannot be determined (1). Shape: Not taller than wide (0). Margins: Smooth (0). Echogenic Foci: Peripheral calcifications (2). Punctate echogenic foci (3). ACR TI-RADS total points: 7 Previous: 5 ACR TI-RADS category: 5 Previous: 4 Significant change in size (>/= 20% in 2 dimensions and minimal increase of 2 mm or 50% or greater increase in volume): Yes Change in features: No Change in ACR TI-RADS risk category: Yes 2. Location: Left mid. Size: 3.6 x 2.0 x 2.7 cm, volume 10.3 mL. Previously: 3.1 x 2.3 x 1.7 cm, volume 6.3 mL. Nodule characteristics: Composition: Solid (2). Echogenicity: Isoechoic (1). Shape: Not taller than wide (0). Margins: Irregular (2). Echogenic Foci: None (0). ACR TI-RADS total points: 5 Previous: 3 ACR TI-RADS category: 4 Previous: 3 Significant change in size (>/= 20% in 2 dimensions and minimal increase of 2 mm or 50% or greater increase in volume): Yes Change in features: No Change in ACR TI-RADS risk category: Yes 3. Location: Left medial inferior. Size: 1.6 x 1.0 x 1.5 cm, volume 1.25 mL. Previously: 1.6 x 0.8 x 1.2 cm, volume 0.8 mL. Nodule characteristics: Composition: Solid (2). Echogenicity: Hypoechoic (2). Shape: Not taller than wide (0). Margins: Smooth (0). Echogenic Foci: Punctate echogenic foci (3). ACR TI-RADS total points: 7 Previous: 4 ACR TI-RADS category: 5 Previous: 4 Significant change in size (>/= 20% in 2 dimensions and minimal increase of 2 mm or 50% or greater increase in volume): Yes Change in features: No Change in ACR TI-RADS risk category: Yes 4. Location: Left inferior medial. Size: 1.4 x 1.0 x 1.3 cm, volume 0.95 mL. Previously: New since the previous study. Nodule characteristics: Composition: Solid (2). Echogenicity: Hypoechoic (2). Shape: Not taller than wide (0). Margins: Smooth (0). Echogenic Foci: None (0). ACR TI-RADS total points: 4 ACR TI-RADS category: 4 5. Location: Left medial inferior. Size: 1.2 x 0.9 x 1.1 cm, volume 0.63 mL. Previously: New since the previous study. Nodule characteristics: Composition: Solid (2). Echogenicity: Hypoechoic (2). Shape: Not taller than wide (0). Margins: Smooth (0). Echogenic Foci: Macrocalcifications (1). ACR TI-RADS total points: 5 ACR TI-RADS category: 4 NODES: No lymphadenopathy is seen in the tissue surrounding the thyroid gland. US/US thyroid IMPRESSION: 1. Enlarged heterogeneous thyroid gland with multiple nodules. 2. 1.9 cm nodule in the upper pole of the right lobe, TR 5, fulfills the criteria for FNA. Fine-needle aspiration is recommended, if not already performed. 3. 3.6 cm nodule in the mid left lobe, TR 3, fulfills the criteria for FNA. Fine-needle aspiration is recommended, if not already performed. 4. 1.6 cm nodule in the left medial lower pole, TR 4, fulfills the criteria for FNA. Fine-needle aspiration is recommended, if not already performed. 5. Routine annual sonographic follow-up of the 2 nodules in the lower pole of the left lobe is recommended. ACR TI-RADS RECOMMENDATION REFERENCE: Ultrasound-guided fine-needle aspiration, follow up ultrasound, no further followup. * TR1 (0 point) and TR2 (2 points): No FNA or followup * TR3 (3 points): FNA if more than or equal to 2.5 cm in maximum dimension, follow up ultrasound in 1, 3 and 5 years if 1.5 to 2.4 cm in maximum dimension. * TR4 (4-6 points): FNA if more than or equal to 1.5 cm in maximum dimension, follow up ultrasound in 1, 2, 3 and 5 years if 1 to 1.4 cm in maximum dimension. * TR5 (more than or equal to 7 points): FNA if more than or equal to 1 cm in maximum dimension, follow up ultrasound every year for 5 years if 0.5 to 0.9 cm in maximum dimension. * TR3, TR4 or TR5 nodules that are below the size threshold for follow up receive no followup.
== END 2023-12-25 13:41 | disposition home or self-care (01) ==
LOC: HO.US 13:40
PROVIDERS: PCP Nurse Practitioner Family; Visit Provider Internal Medicine Endocrinology, Diabetes & Metabolism
DX: E05.20 Thyrotoxicosis with toxic multinodular goiter without thyrotoxic crisis or storm (principal)
CPT/HCPCS: 76536

== ENCOUNTER 2024-01-16 12:29 | Outpatient (AMB) | payer OTHER, SELFPAY ==
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
[2024-01-16 12:48] VITALS: BMI 29.9
== END 2024-01-16 13:21 | disposition home or self-care (01) ==
PROVIDERS: PCP Nurse Practitioner Family; Visit Provider Physician Assistant
DX: S42.291D Other displaced fracture of upper end of right humerus, subsequent encounter for fracture with routine healing (principal)
CPT/HCPCS: 99213

== ENCOUNTER 2024-01-16 15:14 | Outpatient (REF) | payer OTHER, SELFPAY ==
--- NOTE | ~2024-01-16 | XR_ITS ---
EXAMINATION: XR SHOULDER, RIGHT CLINICAL INFORMATION: Pain in right shoulder . COMPARISON: 12/24/2023 TECHNIQUE: 3 views of the right shoulder. FINDINGS: There is an oblique linear lucency along the humeral neck region with cortical disruption, step-off, as well as increased faint sclerosis and calcification in the soft tissues adjacent to the humeral head concerning for prior fracture. Redemonstration of sclerotic area within the humeral neck region along the inferior aspect of this oblique linear lucency. The bones are diffusely demineralized. Degenerative changes in the imaged upper thoracic spine. Redemonstration of sclerotic density in the region of the humeral neck. Moderate degenerative changes in the acromioclavicular joint. Slight narrowing of the glenohumeral joint. Redemonstration of slight density inferior to the inferior aspect of the glenoid, possibly relating to injury such as a labral tear. XR/XR shoulder RT min 2V IMPRESSION: Apparent as detailed above concerning for humeral neck fracture. CT scan recommended for further evaluation. This study was presented today 01/22/2024 at 9:10 AM for interpretation. PSA staff will provide STAT results to referring provider at this time.
== END 2024-01-16 15:15 | disposition home or self-care (01) ==
LOC: HO.HOSX 15:14
PROVIDERS: Visit Provider Physician Assistant
DX: S42.291D Other displaced fracture of upper end of right humerus, subsequent encounter for fracture with routine healing (principal)
CPT/HCPCS: 73030

== ENCOUNTER 2024-02-02 16:28 | Emergency (ER) | payer OTHER, SELFPAY ==
--- NOTE | ~2024-02-02 | XR_ITS ---
EXAMINATION: XR KNEE, LEFT CLINICAL INFORMATION: Pain COMPARISON: None available. TECHNIQUE: Four views of the left knee. FINDINGS: Osseous alignment is anatomic. There is narrowing of the patellofemoral joint space along with osteophytosis. Medial and lateral joint spaces are relatively well maintained. Chondrocalcinosis is noted. No acute fracture is seen. Trace joint effusion. XR/XR knee LT 3V IMPRESSION: No acute osseous findings. Trace joint effusion.
--- NOTE | ~2024-02-02 | US_ITS ---
EXAMINATION: US VENOUS ULTRASOUND WITH DOPPLER LOWER EXTREMITY, LEFT CLINICAL INFORMATION: Calf tenderness COMPARISON: None available. TECHNIQUE: Ultrasound of the deep veins is performed from the hip to the calf with compression sonography and color and pulse Doppler assessment. Spectral analysis with color-flow imaging is performed. FINDINGS: There is normal venous compression and respiratory variation and augmented flow. The visualized common femoral vein, superficial femoral vein, profunda femoral vein, popliteal vein, and the trifurcation region shows no evidence of deep venous thrombosis. There is no significant popliteal fossa cyst. . If the patient's symptoms persist, followup ultrasound in 5 days 7 days might be of value to exclude proximal propagation from a non-visualized calf vein. US/US venous duplex LE LT IMPRESSION: No DVT demonstrated in the left lower extremity.
[2024-02-02 16:53] VITALS: BP 138/60; PULSE 87; RESP 18; TEMP 36.3; O2SAT 98
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
[2024-02-02 17:13] LABS: MANUAL DIFF FLAG NO
[2024-02-02 17:14] LABS: Basophils Percent Auto 0.3 % (0-2); Eosinophils Absolute Auto 0.2 X10*3/uL (0.0-0.4); Hematocrit 36.4 % (37.0-47.0); Hemoglobin 11.8 g/dl (12.0-16.0); Imm Gran Abs Auto 0.03 X10*3/uL (0.00-0.03); Imm Gran Pct Auto 0.5 % (0.0-0.4); Lymphocytes Absolute Auto 1.1 X10*3/uL (1.2-4.9); Lymphocytes Percent Auto 17.5 % (20-40); Mean Corpuscular HGB Conc 32.4 g/dl (31.0-35.0); Mean Corpuscular Hemoglobin 29.1 pg (27.0-33.0); Mean Corpuscular Volume 89.7 fL (80.0-98.0); Mean Platelet Volume 8.4 fL (9.4-12.3); Monocytes Absolute Auto 0.7 X10*3/uL (0.1-1.2); Monocytes Percent Auto 10.3 % (2-11); Neutrophils Absolute Auto 4.4 x10*3/uL (2.0-8.3); Neutrophils Percent Auto 68.4 % (45-73); Platelet Count 296 X10*3/uL (160-400); Red Blood Count 4.06 X10*6/uL (4.20-5.50); Red Cell Distribution Width 14.4 % (11.0-16.0); White Blood Count 6.4 X10*3/uL (4.8-10.8)
[2024-02-02 17:18] VITALS: BP 152/70; PULSE 85; RESP 16; TEMP 36.4; O2SAT 100
[2024-02-02 17:21] LABS: INTERNATIONAL NORM RATIO 0.9 (0.9-1.1); Prothrombin Time 11.2 SEC (11.1-13.3)
--- NOTE | 2024-02-02 17:30 | PC.NURSE ---
Pt presents to ED from home with bilat lower extremity edema and left knee pain. Pt reports no recent fall or memory or injuring her knee but does report she has been doing exercises with PT. Pt denies any CP, SOB, cough, fevers. Pt is alert and oriented, breathing even and unlabored, skin WNL. Edema noted to bilat feet, non-pitting. Pedal pulses strong bilat, + movement and sensation, pt reports it feels like the skin is stretched around my feet from the swelling . No obvious deformities or bruising to left knee. VSS. Pt reports pain is 3/10 in left knee at this time.
[2024-02-02 17:33] LABS: Alanine Aminotransferase 29 U/L (0-31); Albumin Level 4.1 g/dL (3.5-5.0); Alkaline Phosphatase 91 U/L (39-117); Anion Gap 9 (12-20); Aspartate Amino Transferase 22 U/L (5-31); Bilirubin Total 0.2 mg/dL (0.0-1.0); Blood Urea Nitrogen 13 mg/dL (9-16); Calcium 9.3 mg/dL (8.4-10.2); Carbon Dioxide 30 mmol/L (22-29); Chloride 106 mmol/L (96-108); Creatinine Clr Calc Pharmacy 68.5; Estimated Glomerular Filt Rate > 60; Glucose Random 89 mg/dL (60-115); Lipase 27 U/L (8-78); Magnesium 1.7 mg/dL (1.6-2.6); Potassium 3.8 mmol/L (3.3-5.1); Sodium 141 mmol/L (135-145); Total Protein 6.5 g/dL (6.5-8.0)
--- NOTE | 2024-02-02 19:10 | PC.NURSE ---
assumed care of pt at this time. axox4. nad. +pedal pulses. left leg appears swollen compared to R. however no redness/warmth noted. awaiting u/s results. call barber within results.
[2024-02-02] MEDS: Cyclobenzaprine HCl 10 MG TABLET PO (21:30)
[2024-02-02 21:31] VITALS: BP 152/76; PULSE 77; RESP 16; TEMP 36.8; O2SAT 99
== END 2024-02-02 21:33 | disposition home or self-care (01) ==
PROVIDERS: Physician Assistant Medical; Emergency Provider Emergency Medicine; PCP Nurse Practitioner Family
DX: M25.562 Pain in left knee (principal); M79.605 Pain in left leg
CPT/HCPCS: 36415; 73562; 80053; 83690; 83735; 85025; 85610; 93971; 99284

== ENCOUNTER 2024-02-05 09:57 | Outpatient (AMB) | payer OTHER, SELFPAY ==
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
== END 2024-02-05 10:31 | disposition home or self-care (01) ==
PROVIDERS: PCP Nurse Practitioner Family; Visit Provider Orthopaedic Surgery
DX: M17.12 Unilateral primary osteoarthritis, left knee (principal)
CPT/HCPCS: 20610; 99213

== ENCOUNTER → 2024-02-05 09:57 | Outpatient (BNVA) | payer OTHER, SELFPAY | PROVIDERS: PCP Nurse Practitioner Family; Visit Provider Orthopaedic Surgery | DX: M17.12 Unilateral primary osteoarthritis, left knee (principal) | CPT/HCPCS: 20610; J1020 ==

== ENCOUNTER 2024-02-26 08:15 | Outpatient (REF) | payer OTHER, SELFPAY ==
--- NOTE | ~2024-02-26 | XR_ITS ---
EXAMINATION: XR SHOULDER, RIGHT CLINICAL INFORMATION: Right shoulder pain. COMPARISON: Radiographs dated 01/16/2024. TECHNIQUE: AP neutral, scapula Y and axillary views of the right shoulder are submitted. FINDINGS: A mildly impacted fracture is seen of the surgical neck of the proximal right humerus. There is adjacent periosteal thickening. The glenohumeral joint is intact. The acromioclavicular and coracoclavicular intervals are normal. There is mild osteoarthritic change of the acromioclavicular joint. No soft tissue calcification or foreign body is seen. There is no right pneumothorax. XR/XR shoulder RT min 2V IMPRESSION: An impacted, mildly displaced healing fracture is noted of the surgical neck of the proximal right humerus.
== END 2024-02-26 08:16 | disposition home or self-care (01) ==
LOC: HO.HOSX 08:15
PROVIDERS: Visit Provider Physician Assistant
DX: M25.511 Pain in right shoulder (principal)
CPT/HCPCS: 73030

== ENCOUNTER 2024-02-26 15:08 | Outpatient (AMB) | payer OTHER, SELFPAY ==
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
== END 2024-02-26 16:15 | disposition home or self-care (01) ==
PROVIDERS: PCP Nurse Practitioner Family; Visit Provider Physician Assistant
DX: S42.291D Other displaced fracture of upper end of right humerus, subsequent encounter for fracture with routine healing (principal); Z04.3 Encounter for examination and observation following other accident
CPT/HCPCS: 99213

== ENCOUNTER 2024-03-03 06:34 | Day surgery (SDC) | payer OTHER, SELFPAY ==
--- NOTE | 2024-03-02 09:25 | HO.ANESPROP2 ---
Documented by User: Carmina Penny NP 03/02/24 09:26 HPI - Anesthesia Eval Consult details Narrative: 68yo F for Colonoscopy PMFSH Active Problems Active Problems: All Active Problems Arthritis of left knee (Acute) Closed fracture of right proximal humerus (Acute) Anxiety and depression (Acute) Tear of medial meniscus of right knee (Acute) Right knee pain (Acute) Sprain of right knee (Acute) Tubular adenoma of colon (Acute) Pre-op examination (Acute) Hot flashes (Acute) Osteoporosis (Acute) Well woman exam (Acute) Breast implant status (Acute) Physical exam (Acute) Postmenopausal (Acute) Upper respiratory tract infection (Acute) Right otitis media (Acute) Vitamin D deficiency (Acute) Subclinical hyperthyroidism (Acute) Multinodular thyroid (Acute) Hordeolum externum left lower eyelid (Acute 08/13/20) Past Medical History Medical History Hyperthyroidism Vitamin D deficiency Subclinical hyperthyroidism Multinodular thyroid Family History Family History Father No problems noted. Mother Substance use disorder Mental health disorder Brother Substance use disorder Mental health disorder Surgical History Surgical History H/O colonoscopy Hx of eye surgery Hx laparoscopic cholecystectomy Hx of cataract removal with insertion of prosthetic lens Hx of rhinoplasty Hx of breast augmentation Hx of foot surgery Social History Social History Housing: House Alcohol intake: never Patient Tobacco Use Status: Former Tobacco user Quit Date: 1996 e-Cigarette/Vaping Use: Currently Using Second Hand Smoke Exposure: Yes Are you DNR?: No Advance Directives: No Advance Directives Information Provided: Yes service: No Current occupational status: employed 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 occupational exposures/hazards: Yes Cognitive needs: No Hearing needs: No Vision needs: No Meds Allergies Allergy/AdvReac Type Severity Reaction Status Date / Time metronidazole [From FLAGYL] Allergy Severe ANAPHYLAXIS Verified 02/05/24 10:08 sulfamethoxazole Allergy Severe Palpitation Verified 02/05/24 10:08 [From Bactrim] s trimethoprim [From Bactrim] Allergy Severe Palpitation Verified 02/05/24 10:08 s sulfite [Sulfite] Allergy Intermediate BISULFITES-ITCHING Verified 02/05/24 10:08 IN MOUTH & THROAT,SHORTNESS OF BREATH phenylalanine [PHENYLALANINE] Allergy Mild UNKNOWN Verified 02/05/24 10:08 barber pepper [GREEN PEPPER] Allergy Unknown LIP Verified 02/05/24 10:08 SWELLING From FLAGYL Allergy Severe ANAPHYLAXIS Uncoded 01/16/24 12:47 bisulfites Allergy Unknown itching Uncoded 01/16/24 12:47 peppers Allergy Unknown Unknown Uncoded 01/16/24 12:47 Home Medications ?Medication ?Instructions ?Recorded ?Confirmed ?Last Taken ?Type bupropion HCl 150 mg 24 hr tablet, 150 mg PO QAM 09/28/20 02/05/24 Unknown History extended release atomoxetine 25 mg capsule 25 mg PO DAILY 01/15/23 02/05/24 Unknown History fluoxetine 20 mg capsule 60 mg PO DAILY 01/15/23 02/05/24 Unknown History acetaminophen 500 mg tablet 1,000 mg PO Q6H PRN pain 12/23/23 02/05/24 Unknown History cholecalciferol (vitamin D3) 125 125 mcg PO DAILY 12/23/23 02/05/24 Unknown History mcg (5,000 unit) capsule Assessment and Plan Assessment Anesthesia Assessment: Chart Reviewed Documented by User: Kathia Green MD 03/03/24 07:32 PMFSH Active Problems Active Problems: All Active Problems Arthritis of left knee (Acute) Closed fracture of right proximal humerus (Acute) Anxiety and depression (Acute) Tear of medial meniscus of right knee (Acute) Right knee pain (Acute) Sprain of right knee (Acute) Tubular adenoma of colon (Acute) Pre-op examination (Acute) Hot flashes (Acute) Osteoporosis (Acute) Well woman exam (Acute) Breast implant status (Acute) Physical exam (Acute) Postmenopausal (Acute) Upper respiratory tract infection (Acute) Right otitis media (Acute) Vitamin D deficiency (Acute) Subclinical hyperthyroidism (Acute) Multinodular thyroid (Acute) Hordeolum externum left lower eyelid (Acute 08/13/20)8 Past Medical History Medical History Hyperthyroidism Vitamin D deficiency Subclinical hyperthyroidism Multinodular thyroid Family History Family History Father No problems noted. Mother Substance use disorder Mental health disorder Brother Substance use disorder Mental health disorder Surgical History Surgical History H/O colonoscopy Hx of eye surgery Hx laparoscopic cholecystectomy Hx of cataract removal with insertion of prosthetic lens Hx of rhinoplasty Hx of breast augmentation Hx of foot surgery History of Problems with Anesthesia: No Social History Social History Housing: House Alcohol intake: never Patient Tobacco Use Status: Former Tobacco user Quit Date: 1996 e-Cigarette/Vaping Use: Currently Using Second Hand Smoke Exposure: Yes Are you DNR?: No Advance Directives: No Advance Directives Information Provided: Yes service: No 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 occupational status: employed 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 occupational exposures/hazards: Yes Cognitive needs: No Hearing needs: No Vision needs: No Meds Allergies Allergy/AdvReac Type Severity Reaction Status Date / Time metronidazole [From FLAGYL] Allergy Severe ANAPHYLAXIS Verified 02/05/24 10:08 sulfamethoxazole Allergy Severe Palpitation Verified 02/05/24 10:08 [From Bactrim] s trimethoprim [From Bactrim] Allergy Severe Palpitation Verified 02/05/24 10:08 s sulfite [Sulfite] Allergy Intermediate BISULFITES-ITCHING Verified 02/05/24 10:08 IN MOUTH & THROAT,SHORTNESS OF BREATH phenylalanine [PHENYLALANINE] Allergy Mild UNKNOWN Verified 02/05/24 10:08 barber pepper [GREEN PEPPER] Allergy Unknown LIP Verified 02/05/24 10:08 SWELLING From FLAGYL Allergy Severe ANAPHYLAXIS Uncoded 01/16/24 12:47 bisulfites Allergy Unknown itching Uncoded 01/16/24 12:47 peppers Allergy Unknown Unknown Uncoded 01/16/24 12:47 Home Medications ?Medication ?Instructions ?Recorded ?Confirmed ?Last Taken ?Type bupropion HCl 150 mg 24 hr tablet, 150 mg PO QAM 09/28/20 02/05/24 Unknown History extended release atomoxetine 25 mg capsule 25 mg PO DAILY 01/15/23 02/05/24 Unknown History fluoxetine 20 mg capsule 60 mg PO DAILY 01/15/23 02/05/24 Unknown History acetaminophen 500 mg tablet 1,000 mg PO Q6H PRN pain 12/23/23 02/05/24 Unknown History cholecalciferol (vitamin D3) 125 125 mcg PO DAILY 12/23/23 02/05/24 Unknown History mcg (5,000 unit) capsule Exam Airway Mallampati Class: II TM Dist: >3cm Neck ROM: Full Loose/Missing/Broken Teeth: No Heart: RRR Lungs: CTA Assessment and Plan Assessment Anesthesia Assessment: Anesthesia Plan Discussed Final Anesthetic Review History of Problems with Anesthesia: No NPO: Yes ASA Class: II Final Preanesthetic Review: Meds/Allgs Chart Reviewed, Consent Obtained/Reviewed and Anes Risks/Benef Reviewed Patient Risk: Low Procedure Risk: Low Anesthetic Plan Anesthetic Plan: MAC: Disposition: Standard PACU
--- NOTE | 2024-03-03 06:39 | MHC.SHP ---
Pre-Procedural Eval Section A - 24 Hr Update-Section A only Date of Service: 03/03/24 Section B - Complete if H&P > 30 days Chief Complaint: screening Relevant Family History (Specify if Yes): No Relevant Social History: None Present Medications: see Short Stay Collaborative assessment Medical History: Significant History (Hyperthyroidism Vitamin D deficiency Subclinical hyperthyroidism Multinodular thyroid) History of Previous Operations: Relevant previous surgery/procedure and date(s) (H/O colonoscopy Hx of eye surgery Hx laparoscopic cholecystectomy Hx of cataract removal with insertion of prosthetic lens Hx of rhinoplasty Hx of breast augmentation Hx of foot surgery) Allergies: Allergies Allergy/AdvReac Type Severity Reaction Status Date / Time metronidazole [From FLAGYL] Allergy Severe ANAPHYLAXIS Verified 02/05/24 10:08 sulfamethoxazole Allergy Severe Palpitation Verified 02/05/24 10:08 [From Bactrim] s trimethoprim [From Bactrim] Allergy Severe Palpitation Verified 02/05/24 10:08 s sulfite [Sulfite] Allergy Intermediate BISULFITES-ITCHING Verified 02/05/24 10:08 IN MOUTH & THROAT,SHORTNESS OF BREATH phenylalanine [PHENYLALANINE] Allergy Mild UNKNOWN Verified 02/05/24 10:08 barber pepper [GREEN PEPPER] Allergy Unknown LIP Verified 02/05/24 10:08 SWELLING From FLAGYL Allergy Severe ANAPHYLAXIS Uncoded 01/16/24 12:47 bisulfites Allergy Unknown itching Uncoded 01/16/24 12:47 peppers Allergy Unknown Unknown Uncoded 01/16/24 12:47 Review of Systems Sugical H&P ROS: Negative: Constitution, Cardiovascular, Respiratory, Neurological, Psychiatric, Hem-Onc, Allergic/Immunologic, Gastrointestinal, Genitourinary, Musculoskeletal, Integumentary, Endocrine and Eyes/Ears/Nose/Throat Exam Surgical H&P Exam: Normal: HEENT, Normal: Heart, Normal: Lungs, Normal: Extremities, Normal: Abdomen, Normal: Skin and Normal: Neurological Plan Diagnosis/Plan: Unchanged I have reviewed the history and physical and performed a pertinent physical examination on my patient. No changes have occurred unless specified. Time Spent With Patient Time: Total time managing care of this patient today ____ minutes.
[2024-03-03 07:00] VITALS: BP 144/66; PULSE 84; RESP 18; TEMP 36.1; O2SAT 97; BMI 28.6
--- NOTE | 2024-03-03 07:11 | PC.NURSE ---
fleets given results light lquid brown no solids
[2024-03-03] MEDS: Lactated Ringers 1,000 ML 100 ML IVCONT (07:25)
--- NOTE | 2024-03-03 07:25 | PC.NURSE ---
Addendum entered by Lizzie Armenta RN 03/03/24 07:26: bruising noted to chin Original Note: pt fell last week denies loc denies head injury
--- NOTE | 2024-03-03 07:34 | P.OP_ITS ---
Operative Note Operative Note Date of Service: 03/03/24 Narrative: Operative Information Procedure Description: Colonoscopy Indication: screening Anesthesia: MAC COLONOSCOPY Instrument: Olympus variable stiffness pediatric scope 190L Colonoscopy Monitoring: Vital signs and clinical assessment, continuous EKG monitoring, Pulse oximetry, Carbon Dioxide monitoring and blood pressure monitoring were done throughout the procedure. Colon withdrawal time was 15 minutes. Procedure: The patient was placed in the left lateral decubitis position and pre-procedure medications were administered. After a digital rectal examination of the ano-rectum, the video colonoscope was inserted into the rectum and advanced through the colon to the cecum/TI. The colonoscope was slowly withdrawn in a retrograde panoramic fashion and the colon mucosa was carefully examined including a retroflexed view of the rectum. Findings and interventions are described below. Procedure Difficulty: moderate Findings: Terminal Ileum-not intubated Cecum:normal Ascending Colon: normal Transverse Colon -normal Descending Colon:normal Sigmoid Colon: normal Rectum: Retroflexion with small internal hemorrhoids seen, grade I with skin tags Anorectum - normal Intervention: none Colon preparation: Wilsey Bowel Preparation Scale Right colon; 1 Transverse colon: 1 Left colon; 1-2 (0 = Unprepared colon segment with mucosa not seen due to solid stool that cannot be cleared. 1 = Portion of mucosa of the colon segment seen, but other areas of the colon segment not well seen due to staining, residual stool and/or opaque liquid. 2 = Minor amount of residual staining, small fragments of stool and/or opaque liquid, but mucosa of colon segment seen well. 3 = Entire mucosa of colon segment seen well with no residual staining, small fragments of stool or opaque liquid) Impression and Post Procedure Diagnosis: internal hemorrhoids Plan: High fiber diet leaflet Avoid straining at stool, epsom salts and sitz bath, anusol supps or cream Repeat Colonoscopy in 6-12 months due to poor prep or earlier if clinically indicated --maybe 2 d clear next time Above findings were reviewed with the patient and relevant handouts were provided if indicated.
[2024-03-03 08:12] VITALS: BP 131/44; PULSE 92; RESP 20; TEMP 36.1; O2SAT 100
[2024-03-03 08:27] VITALS: BP 139/61; PULSE 83; RESP 18; TEMP 36.1; O2SAT 98
[2024-03-03 08:42] VITALS: BP 141/70; PULSE 76; RESP 18; TEMP 36.1; O2SAT 97
== END 2024-03-03 08:59 | disposition home or self-care (01) ==
PROVIDERS: PCP Nurse Practitioner Family; Visit Provider Internal Medicine Gastroenterology
PROC: 0DJD8ZZ Inspection of Lower Intestinal Tract, Via Natural or Artificial Opening Endoscopic (ICD-10-PCS; CPT 45378; principal; 2024-03-03 07:30)
DX: Z12.11 Encounter for screening for malignant neoplasm of colon (principal); Z86.010 Personal history of colon polyps; Z83.719 Family history of colon polyps, unspecified; K64.8 Other hemorrhoids; K64.4 Residual hemorrhoidal skin tags; K21.9 Gastro-esophageal reflux disease without esophagitis; E04.2 Nontoxic multinodular goiter; E05.90 Thyrotoxicosis, unspecified without thyrotoxic crisis or storm; E55.9 Vitamin D deficiency, unspecified; E05.80 Other thyrotoxicosis without thyrotoxic crisis or storm; Z79.899 Other long term (current) drug therapy; Z88.2 Allergy status to sulfonamides; Z88.1 Allergy status to other antibiotic agents; Z88.8 Allergy status to other drugs, medicaments and biological substances; Z98.890 Other specified postprocedural states; Z87.891 Personal history of nicotine dependence
CPT/HCPCS: 45378; J2704

== ENCOUNTER → 2024-03-03 06:34 | Outpatient (BNV) | payer OTHER, SELFPAY | PROVIDERS: PCP Nurse Practitioner Family; Visit Provider Internal Medicine Gastroenterology | DX: Z12.11 Encounter for screening for malignant neoplasm of colon (principal); K64.0 First degree hemorrhoids; K64.4 Residual hemorrhoidal skin tags | CPT/HCPCS: 45378 ==

== ENCOUNTER 2024-03-11 10:58 | Outpatient (REF) | payer OTHER, SELFPAY ==
--- NOTE | ~2024-03-11 | MM_ITS ---
EXAMINATION: MM SCREENING DIGITAL BREAST TOMOSYNTHESIS, BILATERAL CLINICAL INFORMATION: Screening. Asymptomatic. COMPARISON: Mammography: This study is compared with prior mammography dating back to 2016. TECHNIQUE: Digital mammography is performed in craniocaudal and mediolateral oblique views along with computer-aided detection (CAD). Digital breast tomosynthesis is performed in implant-displaced craniocaudal and implant-displaced mediolateral oblique views along with computer-aided detection (CAD). Synthesized 2D images are generated from the tomosynthesis. FINDINGS: There are scattered areas of fibroglandular density (ACR BI-RADS breast composition Category b). There are no significant masses, abnormal calcifications, or other abnormalities. There are bilateral, retropectoral silicone breast implants. There are capsular calcifications on the surface of the implants. Implants are lobulated. There is no definite evidence of free silicone however. MM/MM tomosynthesis screen imp BI IMPRESSION: There are no significant changes from prior study. ASSESSMENT: BI-RADS BI-RADS 2 - Benign Findings RECOMMENDATION: Routine annual mammography screening. 1 year F/U This patient's information was entered into a reminder system with a target due date for their next mammogram.
== END 2024-03-11 10:59 | disposition home or self-care (01) ==
LOC: HO.MAMMO 10:58
PROVIDERS: PCP Nurse Practitioner Family; Visit Provider Nurse Practitioner Family
DX: Z12.31 Encounter for screening mammogram for malignant neoplasm of breast (principal)
CPT/HCPCS: 77063; 77067

== ENCOUNTER → 2024-03-11 11:00 | Outpatient (BNV) | payer OTHER, SELFPAY | PROVIDERS: PCP Nurse Practitioner Family; Visit Provider Radiology Diagnostic Radiology | DX: Z12.31 Encounter for screening mammogram for malignant neoplasm of breast (principal) | CPT/HCPCS: 77063; 77067 ==

== ENCOUNTER 2024-03-17 15:02 | Outpatient (AMB) | payer OTHER, SELFPAY ==
[2024-03-17 15:03] VITALS: BP 138/64; PULSE 84; BMI 28.9
--- NOTE | 2024-03-17 15:03 | A.OFFVIS_ITS ---
Vital Signs 03/17/24 15:03 Height 5 ft 5 in Weight 173 lb 11.588 oz BMI 28.9 BP 138/64 Blood Pressure Location Lt brachial Position Sitting Pulse 84 Intake Visit Reasons: S/P [place]; Dr. Brito Intake Note: Desi presents to in office follow up s/p colonoscopy. CC: Patient reports doing fine and denies other GI symptoms today. Group Home Supervisor Required: No Allergies metronidazole [From FLAGYL] Allergy (Severe, Verified 03/17/24 15:07) ANAPHYLAXIS sulfamethoxazole [From Bactrim] Allergy (Severe, Verified 03/17/24 15:07) Palpitations trimethoprim [From Bactrim] Allergy (Severe, Verified 03/17/24 15:07) Palpitations sulfite [Sulfite] Allergy (Intermediate, Verified 03/17/24 15:07) BISULFITES-ITCHING IN MOUTH & THROAT,SHORTNESS OF BREATH phenylalanine [PHENYLALANINE] Allergy (Mild, Verified 03/17/24 15:07) UNKNOWN barber pepper [GREEN PEPPER] Allergy (Unknown, Verified 03/17/24 15:07) LIP SWELLING From FLAGYL Allergy (Severe, Uncoded 01/16/24 12:47) ANAPHYLAXIS bisulfites Allergy (Unknown, Uncoded 01/16/24 12:47) itching peppers Allergy (Unknown, Uncoded 01/16/24 12:47) Unknown HPI HPI S/P [place]; Dr. Brito: Details: Assessment & Plan (1) Pre-op examination: Code(s): Z01.818 - Encounter for other preprocedural examination Plan: Her last colonoscopy was in [address] Ni and she had one TA and one hyperplastic polyp. She has occasional loose stools and episodes of fecal incontinence with passing gas, this happens with salads but not fatty foods. Some foods like very dark chocolate will give her GERD. The only problem she has had with anesthesia and sedation is when the product is made with bisulfites as a preservative. This causes her tachycardia. She denies any cardiac or respiratory problems. No ID problems. She had a 10mm TA in 2018, her mother had polyps. She prefers the Miralax prep with dulcolax. (2) Tubular adenoma of colon: Comment: Jessica Ni Code(s): D12.6 - Benign neoplasm of colon, unspecified Orders: Orders Comprehensive Met. Panel Today Z01.818 - Encounter for other preprocedural examination Complete Blood Count Auto Diff Today Z01.818 - Encounter for other preprocedural examination Medications: New polyethylene glycol 3350 (Miralax) 17 grams PO DAILY 30 days 510 grams 0RF bisacodyl (Dulcolax (bisacodyl)) 10 mg (2 x 5 mg) PO BEDTIME 2 days 4 tabs 0RF LABS: Laboratory Tests 03/29/23 02/02/24 11:58 17:09 WBC 6.4 RBC 4.06 L Hgb 11.8 L Hct 36.4 L MCV 89.7 MCH 29.1 Plt Count 296 Estimated GFR > 60 Total Bilirubin 0.2 AST 22 ALT 29 Alkaline Phosphatase 91 TSH 1.54 Free T4 0.88 COLONOSCOPY 03/03/24 Findings: Terminal Ileum-not intubated Cecum:normal Ascending Colon: normal Transverse Colon -normal Descending Colon:normal Sigmoid Colon: normal Rectum: Retroflexion with small internal hemorrhoids seen, grade I with skin tags Anorectum - normal Intervention: none Impression and Post Procedure Diagnosis: internal hemorrhoids Plan: High fiber diet leaflet Avoid straining at stool, epsom salts and sitz bath, anusol supps or cream Repeat Colonoscopy in 6-12 months due to poor prep or earlier if clinically indicated --maybe 2 d clear next time TODAY'S VISIT She did not have any problem with the prep. She is agreeable to 1 year follow- up to repeat the procedure. The procedure was well tolerated. The results were explained and the patient is agreeable to the follow-up interval as stated. The bowel pattern has returned to normal. Education was provided to tell any 1st degree relatives about their findings to be sure that they are screened by age 45. Educated that they will be put on a recall list when it is time for their repeat scope but should they move out of state or away from the hospital they will need to remember along with their primary to repeat the procedure in a timely fashion to avoid any adverse complications. Next time we will do a 2 day prep and a 1 weeks low residual diet. ROV 1 year. PFSH Medical History Hyperthyroidism Vitamin D deficiency Subclinical hyperthyroidism Multinodular thyroid Surgical History H/O colonoscopy Hx of eye surgery Hx laparoscopic cholecystectomy Hx of cataract removal with insertion of prosthetic lens Hx of rhinoplasty Hx of breast augmentation Hx of foot surgery Family History Father No problems noted. 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 occupational exposures/hazards: Yes Cognitive needs: No Hearing needs: No Vision needs: No Review of Systems Const Denies fatigue, Denies fever(s), Denies night sweats, Denies poor appetite and Denies weight loss Eyes Details: glasses Reports requires corrective lenses ENT Reports Normal hearing present, Denies dental pain, Denies dysphagia, Denies hearing loss, Denies mouth pain, Denies odynophagia, Denies throat swelling, Denies tongue swelling and Reports other (Dentition adequate) Card Reports no additional complaints Resp Reports no additional complaints GI Details: Denies abdominal pain, Denies melena, Denies bloating, Denies hematochezia, Denies constipation, Denies GI cramping, Denies dysphagia, Denies excessive flatus, Denies early satiety, Denies heartburn, Denies diarrhea, Denies nausea, Denies odynophagia, Denies vomiting and Denies hematemesis Skin/Breast Denies pruritus, Denies lesions, Denies rash and Denies jaundice Neuro Reports Normal hearing present and Denies Abnormal speech present Endo Denies fatigue Aller/Immun Denies throat swelling and Denies tongue swelling Physical Exam Vital Signs: Last Vital Signs Pulse 84 03/17/24 15:03 BP 138/64 03/17/24 15:03 BMI result Body Mass Index 28.9 Const General: cooperative, no acute distress, well developed and well groomed Nutritional Appearance: average body habitus and well nourished Orientation/consciousness: oriented to person, oriented to place and oriented to time Limitations: No language barrier HEENT Head: Yes normocephalic and Yes atraumatic Eyes General: appearance normal, both eyes and all related structures Pupils: Equal, round and reactive pupils present Neck Neck: Yes normal visual inspection and Yes no lymphadenopathy Thyroid: Thyroid normal Resp Effort & Inspection: normal respiratory effort and able to speak in complete sentences Auscultation: clear to auscultation bilaterally Cardio Rate: regular rate Rhythm: regular rhythm Heart sounds: Normal, physiologic split S2 sound present Peripheral pulses: radial pulses present and posterior tibial pulses present GI Inspection: No distended and No Abdominal panniculus present Palpation (GI): Soft to palpation, nontender, no guarding, not rigid and No hepatosplenomegaly present Percussion: Yes normal to percussion Auscultation: normal bowel sounds Rectal Exam - Female: deferred Skin General skin exam: no rashes or lesions noted, turgor normal, skin not dry, no jaundice, No spider nevi and no striae Rashes: no rashes Nails: normal Neuro General: oriented to person, oriented to place and oriented to time Cranial nerves: Yes Equal, round and reactive pupils present and Yes Normal hearing present Speech: No Abnormal speech present Extrem General: Yes normal to inspection, No clubbing, No cyanosis and No edema Psych Appearance: grossly normal and well kempt Mental Status: mental status grossly normal Speech and movement: Normal speech and movement present Affect: normal affect Attitude: cooperative Thought process: Normal thought process present and not confabulating Thought content: Normal thought content present Insight: Fair insight present (Psych) Judgement: Fair judgement present (Psych) Results Reviewed Results Reviewed: Laboratory Tests 03/29/23 02/02/24 11:58 17:09 WBC 6.4 RBC 4.06 L Hgb 11.8 L Hct 36.4 L MCV 89.7 MCH 29.1 Plt Count 296 Estimated GFR > 60 Total Bilirubin 0.2 AST 22 ALT 29 Alkaline Phosphatase 91 TSH 1.54 Free T4 0.88 COLONOSCOPY 03/03/24 Findings: Terminal Ileum-not intubated Cecum:normal Ascending Colon: normal Transverse Colon -normal Descending Colon:normal Sigmoid Colon: normal Rectum: Retroflexion with small internal hemorrhoids seen, grade I with skin tags Anorectum - normal Intervention: none Impression and Post Procedure Diagnosis: internal hemorrhoids Plan: High fiber diet leaflet Avoid straining at stool, epsom salts and sitz bath, anusol supps or cream Repeat Colonoscopy in 6-12 months due to poor prep or earlier if clinically in dicated --maybe 2 d clear next time Assessment & Plan Assessment & Plan (1) Tubular adenoma of colon: Comment: 2018 Last Code(s): D12.6 - Benign neoplasm of colon, unspecified Category: Medical Plan She did not have any problem with the prep. She is agreeable to 1 year follow- up to repeat the procedure. The procedure was well tolerated. The results were explained and the patient is agreeable to the follow-up interval as stated. The bowel pattern has returned to normal. Education was provided to tell any 1st degree relatives about their findings to be sure that they are screened by age 45. Educated that they will be put on a recall list when it is time for their repeat scope but should they move out of state or away from the hospital they w ill need to remember along with their primary to repeat the procedure in a timely fashion to avoid any adverse complications. Next time we will do a 2 day prep and a 1 weeks low residual diet. ROV 1 year. Coding Level of Care Code Est Pt Level 3 (73614) Diagnoses Tubular adenoma of colon D12.6
== END 2024-03-17 15:18 | disposition home or self-care (01) ==
PROVIDERS: PCP Nurse Practitioner Family; Visit Provider Nurse Practitioner
DX: D12.6 Benign neoplasm of colon, unspecified (principal)
CPT/HCPCS: 99213

== ENCOUNTER → 2024-03-17 15:02 | Outpatient (BNVA) | payer OTHER, SELFPAY | PROVIDERS: PCP Nurse Practitioner Family; Visit Provider Nurse Practitioner ==

== ENCOUNTER 2024-04-02 12:43 | Outpatient (REF) | payer OTHER, SELFPAY ==
[2024-04-02 14:21] LABS: Free T4 (Free Thyroxine) 0.81 ng/dL (0.71-1.85); Thyroid Stimulating Hormone 0.82 uIU/mL (0.32-4.0)
[2024-04-03 07:38] LABS: Triiodothyronine T3 Free 2.5 pg/mL (2.3-4.2)
== END 2024-04-02 12:44 | disposition home or self-care (01) ==
LOC: HO.LAB 12:43
PROVIDERS: PCP Nurse Practitioner Family; Visit Provider Internal Medicine Endocrinology, Diabetes & Metabolism
DX: E05.20 Thyrotoxicosis with toxic multinodular goiter without thyrotoxic crisis or storm (principal)
CPT/HCPCS: 36415; 84439; 84443; 84481

== ENCOUNTER 2024-04-08 12:58 | Outpatient (REF) | payer OTHER, SELFPAY ==
--- NOTE | ~2024-04-08 | XR_ITS ---
EXAMINATION: XR SHOULDER, RIGHT CLINICAL INFORMATION: Pain in right shoulder. COMPARISON: 02/26/2024. TECHNIQUE: Three views of the right shoulder. FINDINGS: The bones are diffusely demineralized. Dextroscoliosis with degenerative changes on limited views of the upper thoracic spine. Advanced degenerative changes in the acromioclavicular joint with hypertrophic change and joint space narrowing. Glenohumeral alignment is maintained. Redemonstration of mildly impacted fracture of the surgical neck of the proximal right humerus with bridging callus formation and periosteal thickening. XR/XR shoulder RT min 2V IMPRESSION: Healing fracture of the surgical neck of the proximal right humerus.
== END 2024-04-08 12:59 | disposition home or self-care (01) ==
LOC: HO.HOSX 12:58
PROVIDERS: Visit Provider Physician Assistant
DX: M25.511 Pain in right shoulder (principal)
CPT/HCPCS: 73030

== ENCOUNTER 2024-04-08 12:59 | Outpatient (AMB) | payer OTHER, SELFPAY ==
[2024-04-08 13:15] VITALS: BMI 28.8
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
== END 2024-04-08 13:54 | disposition home or self-care (01) ==
PROVIDERS: PCP Nurse Practitioner Family; Visit Provider Physician Assistant
DX: S42.291D Other displaced fracture of upper end of right humerus, subsequent encounter for fracture with routine healing (principal); V49.40XD Driver injured in collision with unspecified motor vehicles in traffic accident, subsequent encounter; Z04.3 Encounter for examination and observation following other accident
CPT/HCPCS: 99213

== ENCOUNTER 2024-05-05 13:00 | Outpatient (RCR) | payer OTHER, SELFPAY ==
--- NOTE | 2024-01-20 09:54 | MHC.PT.EP ---
[facility] [place] Office [place] Office [place] Office [address] Shane Barnett [address] [phone] F: [phone] F: [phone] F: [phone] F: [phone] Physical Therapy Plan of Care Date of Evaluation: 01/20/24 Date of Surgery: Diagnosis: FX of upper end of R humerus - ROM and periscapular stabilization - no RTC strength. Assessment: Patient is a 68 year old R handed female who presents with s/s consistent with FX of R proximal humerus, R shoulder pain. 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 Patient past medical history is fairly unremarkable. Current impairments include pain, posture, ROM, strength, activity tolerance and functional mobility. Functional limitations include decreased ability to dress, lift, carry, push, pull, sleep and perform ADLs. Patient is motivated with good rehab potential. Skilled PT will address impairments and functional limitations in order to achieve goals. Frequency and Duration: The patient will be seen 2x/week for 5 weeks Short Term Goals: I with HEP - 2 weeks AROM flexion and abd 100 - 3 weeks TTP with sleep and ADLs /10 - 3 weeks Correction Goals: SPADI 60/130 or better - 5 weeks Strength 4/5 grossly - 5 weeks AROM ER/IR 55, flex/abd 130 - 5 weeks Treatment Plan: Modalities to reduce pain, spasms and effusion. Manual therapy to restore motion and function. Therapeutic exercise to improve strength and flexibility. Neuromuscular re-education for posture and balance. Therapeutic activities to return to functional activities of daily living. Electronically signed by: Tyler Gama, PT Please sign and return to therapist. Thank you for your referral.
--- NOTE | 2024-08-19 15:02 | MHC.PT.DC ---
[facility] [place] [facility] [place] [facility] [place] [facility] [address] Shane Barnett [address] [phone] F: [phone] F: [phone] F: [phone] F: [phone] Physical Therapy Discharge Report Diagnosis: FX of upper end of R humerus Date of Surgery: Date of Evaluation: 01/20/24 Date of Discharge: 05/31/24 Treatments to Date: 28 Cancellations to Date: No Shows to Date: Discharge Status: Independent with HEP Patient Elected to Stop Discharge Summary: 05/05/24: pt progressing well still with increased strength ex, no adverse reactions. last visit is on . 04/28/24: pt progressing well with skilled PT. strength has greatly improved. she will d/c to HEP Next week. 04/23; Pt challenged with body blade. Pt fatigued with no c/o pain. 04/16/24: progressing well with strength. fatigued at times but progressing well. added D1/D2 ext. 04/14; Pt fatigued quickly with wt ball walk and body blade. Progressing RTC strengthening. 04/02/24: pt progressing well with skilled PT. AROM goals have been met as flexion and scaption are WNL, abduction to 130. ER to 64. Strength is 4/5 grossly except for ER 4-/5 and flexion 4-/5. TTP min in ant shoulder. Max pain with ADLs 3/10. SPADI 36/130. She has been compliant and motivated throughout her course of skilled PT. She will discuss RTW status with MD on Saturday and call about continue vs d/c. 03/31; Pt fatigued after RTC exs. Increased wt with good dwayne. 03/27/24: pt continues to demonstrate good ROM and strength progress. progressing with HEP as well. 03/24; Pt fatigued with the 1 lb sh flex/abd. Pt had visible shaking. No s/o soreness only fatigue from exs. 03/19/24: pt progressing well with skilled PT. progressed strength today with no adverse reactions. flexion and scaption WNL. 03/17/24: reviewed and re-issued HEP/bands. pt continues to progress strength and ROM. no adverse reactions. progress as tolerated. 03/12/24: pt progressing well with skilled PT. ROM and strength continue to trend in good direction as we have been able to increase weight. continue to progress as tolerated. 03/10/24: pt with more pain today. held on progression. stat patch trial. resume progression NV. 03/05; Pt fatigued after exs, no increase in pain. Pt progressing with strength. 03/02/24: pt progressing well with skilled PT. adding strength as appropriate. we will continue to progress as tolerated. 02/27/24: pt with no new s/s. improving ROM. progressed strength. no adverse reactions. issued updated HEP for strength progression. 02/24; Pt pain free with all exs. NV if healed progress strengthening exs as dwayne. Pt kyle had stated her balance is off due to retina problems and would like to get therapy for balance. 02/19; Pt fatigued after A exs. Pt sees MD next SAT progress RTC as dwayne and ROM. 02/18/24: ROM progressing very well over last 2 weeks. follow up with on Sat of next week. Likely to start cuff strength then. 02/13/24: pt with improved ROM. flexion AROM progressing each visit. compliant with HEP. progress ROM. 02/10/24: pt ROM improving. to progress HEP NV. 02/06/24: pt with improved ROM today. able to add wall slides. AAROM flexion to 130. 02/03/24: pt in noticeable pain today walking and needed to be accommodated. her ROM is improving and she notes compliance with HEP. I urged her to hold on pendulums in HEP as she notes they may aggravate back/LE s/s. 01/29; Pt abd 90 degrees. Pt c/o knee pain performed most exs in sitting. 01/27;Pt passive flexion 100, abd 85, ext rot at 45 abd 40 degrees. Pt unable to relax with PROM. Pt A used her arm with certain movement. Discussed importance oif healing time. 01/23/24: pt progressing well with skilled PT. compliant with HEP. progressed ROM today. no adverse reactions. Patient is a 68 year old R handed female who presents with s/s consistent with FX of R proximal humerus, R shoulder pain. 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 Patient past medical history is fairly unremarkable. Current impairments include pain, posture, ROM, strength, activity tolerance and functional mobility. Functional limitations include decreased ability to dress, lift, carry, push, pull, sleep and perform ADLs. Patient is motivated with good rehab potential. Skilled PT will address impairments and functional limitations in order to achieve goals. Electronically signed by: Tyler Gama, PT Please sign and return to therapist. Thank you for your referral.
== END 2024-08-19 15:03 | disposition home or self-care (01) ==
LOC: HO.PTCHIC 13:00
PROVIDERS: PCP Nurse Practitioner Family; Visit Provider Physician Assistant
DX: S42.201D Unspecified fracture of upper end of right humerus, subsequent encounter for fracture with routine healing (principal)
CPT/HCPCS: 97110; 97162

== ENCOUNTER 2024-05-07 10:29 | Outpatient (AMB) | payer OTHER, SELFPAY ==
--- NOTE | 2024-05-07 10:32 | MHC.OFFVIS ---
Vital Signs 05/07/24 10:33 Height 5 ft 5 in Weight 173 lb BMI 28.8 Intake Visit Reasons: OV- Left Knee pain follow up Intake Note: Ms. Saba presents with complaints of mild intermittent discomfort in her left knee. The patient states that she got fairly good relief from the cortisone injection given to her on 02/05/2024. She denies any locking or giving way. She continues with her home exercise program. Allergies metronidazole [From FLAGYL] Allergy (Severe, Verified 05/07/24 10:35) ANAPHYLAXIS sulfamethoxazole [From Bactrim] Allergy (Severe, Verified 05/07/24 10:35) Palpitations trimethoprim [From Bactrim] Allergy (Severe, Verified 05/07/24 10:35) Palpitations sulfite [Sulfite] Allergy (Intermediate, Verified 05/07/24 10:35) BISULFITES-ITCHING IN MOUTH & THROAT,SHORTNESS OF BREATH phenylalanine [PHENYLALANINE] Allergy (Mild, Verified 05/07/24 10:35) UNKNOWN barber pepper [GREEN PEPPER] Allergy (Unknown, Verified 05/07/24 10:35) LIP SWELLING From FLAGYL Allergy (Severe, Uncoded 05/07/24 10:35) ANAPHYLAXIS bisulfites Allergy (Unknown, Uncoded 05/07/24 10:35) itching peppers Allergy (Unknown, Uncoded 05/07/24 10:35) Unknown Medication List - Last Reconciled 05/08/24 by Joseph Zhang MD acetaminophen 1,000 mg PO Q6H PRN alendronate 70 mg PO QWEEK atomoxetine 25 mg PO DAILY bupropion HCl XL 150 mg PO QAM cholecalciferol (vitamin D3) 125 mcg PO DAILY cyclobenzaprine 10 mg PO TID PRN diclofenac sodium 1% (Arthritis Pain (diclofenac)) 2 grams topical QID fluoxetine 60 mg PO DAILY lidocaine 5% 1 patch topical DAILY meclizine 25 mg PO TID PRN meloxicam 15 mg PO DAILY methimazole 5 mg PO DAILY tramadol 50 mg PO BEDTIME 7 days PFSH Medical History Hyperthyroidism Vitamin D deficiency Subclinical hyperthyroidism Multinodular thyroid Surgical History H/O colonoscopy Hx of eye surgery Hx laparoscopic cholecystectomy Hx of cataract removal with insertion of prosthetic lens Hx of rhinoplasty Hx of breast augmentation Hx of foot surgery Family History Father No problems noted. 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: Yes Cognitive needs: No Hearing needs: No Vision needs: No Physical Exam Vital Signs: BMI result Body Mass Index 28.8 Const Other: Well-nourished well-developed very friendly female awake alert and oriented x3 in no acute distress Extrem Other: Bilateral lower extremity examination shows good capillary refill, no skin lesions noted, normal sensation light touch Left knee examination shows a minimal effusion, mild crepitus with range of motion, mild discomfort with range of motion, no instability Results Reviewed Results Reviewed: X-rays of the patient's left knee show joint space narrowing, subchondral sclerosis, no acute bony abnormalities Assessment & Plan Assessment & Plan (1) Arthritis of left knee: Code(s): M17.12 - Unilateral primary osteoarthritis, left knee Category: Medical Plan Ms. Saba presents with intermittent left knee discomfort due to degenerative joint disease. I had a lengthy discussion with the patient regarding the treatment options. At this point the patient's symptoms are tolerable to her. We will hold off on another cortisone injection. She will follow up with me on an as-needed basis should her symptoms worsen in any way. Feel free to call me at any time should questions regarding her orthopedic management arise. I spent 22 minutes in reviewing the patient's records and imaging studies, seeing the patient and documenting in the medical record. Coding Level of Care Code Est Pt Level 3 (41651) Diagnoses Arthritis of left knee M17.12
[2024-05-07 10:33] VITALS: BMI 28.8
== END 2024-05-07 10:48 | disposition home or self-care (01) ==
PROVIDERS: PCP Nurse Practitioner Family; Visit Provider Orthopaedic Surgery
DX: M17.12 Unilateral primary osteoarthritis, left knee (principal)
CPT/HCPCS: 99213

== ENCOUNTER → 2024-05-07 10:29 | Outpatient (BNVA) | payer OTHER, SELFPAY | PROVIDERS: PCP Nurse Practitioner Family; Visit Provider Orthopaedic Surgery ==

== ENCOUNTER 2024-05-13 12:45 | Outpatient (REF) | payer OTHER, SELFPAY ==
--- NOTE | ~2024-05-13 | XR_ITS ---
EXAMINATION: XR SHOULDER, RIGHT CLINICAL INFORMATION: Shoulder pain. COMPARISON: Prior x-rays including 04/08/2024. TECHNIQUE: AP external rotation, Grashey, scapular Y, and axillary views of the right shoulder. FINDINGS: Redemonstrated is a mildly impacted fracture of the surgical neck of the proximal right humerus, stable in position and alignment. Redemonstrated is callus formation and periosteal thickening. Moderate acromioclavicular arthritis. No new acute fractures seen. No evidence of acute rib fractures. No suspicious soft tissue calcification. XR/XR shoulder RT min 2V IMPRESSION: Stable positioning of a mildly displaced/impacted fracture of the surgical neck of the proximal right humerus.
== END 2024-05-13 12:46 | disposition home or self-care (01) ==
LOC: HO.HOSX 12:45
PROVIDERS: Visit Provider Physician Assistant
DX: M25.511 Pain in right shoulder (principal); S42.291D Other displaced fracture of upper end of right humerus, subsequent encounter for fracture with routine healing; X58.XXXD Exposure to other specified factors, subsequent encounter
CPT/HCPCS: 73030

== ENCOUNTER 2024-05-13 14:18 | Outpatient (AMB) | payer OTHER, SELFPAY ==
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
== END 2024-05-13 15:21 | disposition home or self-care (01) ==
PROVIDERS: PCP Nurse Practitioner Family; Visit Provider Physician Assistant
DX: S42.291D Other displaced fracture of upper end of right humerus, subsequent encounter for fracture with routine healing (principal)
CPT/HCPCS: 99213

== ENCOUNTER 2024-06-04 12:21 | Outpatient (AMB) | payer OTHER, SELFPAY ==
--- NOTE | 2024-06-04 12:33 | A.OFFPC_ITS ---
Vital Signs 06/04/24 12:35 Weight 177 lb BP 124/78 Blood Pressure Location Lt brachial Position Sitting Pulse 86 Pulse Source Pulse Oximeter Pulse Oximetry (%) 96 Oxygen Delivery Method Room Air Intake Visit Reasons: Rescheduled after missed on 01/21/24 Intake Note: Patient here for physical exam. she would like to address bump on thumb on left hand. Mammo: 2023 BD: 2022 Allergies metronidazole [From FLAGYL] Allergy (Severe, Verified 06/04/24 12:38) ANAPHYLAXIS sulfamethoxazole [From Bactrim] Allergy (Severe, Verified 06/04/24 12:38) Palpitations trimethoprim [From Bactrim] Allergy (Severe, Verified 06/04/24 12:38) Palpitations sulfite [Sulfite] Allergy (Intermediate, Verified 06/04/24 12:38) BISULFITES-ITCHING IN MOUTH & THROAT,SHORTNESS OF BREATH phenylalanine [PHENYLALANINE] Allergy (Mild, Verified 06/04/24 12:38) UNKNOWN barber pepper [GREEN PEPPER] Allergy (Unknown, Verified 06/04/24 12:38) LIP SWELLING From FLAGYL Allergy (Severe, Uncoded 06/04/24 12:38) ANAPHYLAXIS bisulfites Allergy (Unknown, Uncoded 06/04/24 12:38) itching peppers Allergy (Unknown, Uncoded 06/04/24 12:38) Unknown Tobacco use date assessed: 12/11/23 Fall risk assessment: 2 + Falls in past year Last assessed Fall Risk: 06/04/24 Dental Screening Dental Screen Date: 12/11/23 HPI Rescheduled after missed on 01/21/24 HPI Details Pt is here for a PE. Labs have already been ordered. Colon screen is up to date. Mammo is up to date. Bone density is up to date. Has a enterprise resource planning consultant. Pt is seeing ortho due to a closed fracture of her right proximal humerus. She is currently out of work. Will give pt a note to return hypertrichologist up to 2 days a week (cleared by ortho, + strength, no pain). Pt c/o left thumb pain. Will order XR. Pt sees endo for her thyroid. [facility] Medical History Hyperthyroidism Vitamin D deficiency Subclinical hyperthyroidism Multinodular thyroid Surgical History H/O colonoscopy Hx of eye surgery Hx laparoscopic cholecystectomy Hx of cataract removal with insertion of prosthetic lens Hx of rhinoplasty Hx of breast augmentation Hx of foot surgery Family History Father No problems noted. 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 1. Little interest or pleasure in doing things: not at all 2. Feeling down, depressed, or hopeless: not at all 3. Trouble falling or staying asleep, or sleeping too much: not at all 4. Feeling tired or having little energy: not at all 5. Poor appetite or overeating: not at all 6. Feeling bad about yourself - or that you are a failure or have let yourself or your family down: not at all 7. Trouble concentrating on things, such as reading the newspaper or watching television: not at all 8. Moving or speaking so slowly that other people could have noticed. Or the opposite - being so fidgety or restless that you have been moving around a lot more than usual: not at all 9. Thoughts that you would be better off or of hurting yourself in some way: not at all Total score: 0 Depression Screening Interpretation: Negative Depression Screening Done: Yes 74048 - PHQ-9 Billing: Yes Source: Developed by Drs. Zander Aguila, Yuni Mcclure, Wilber Mays and colleagues, with an educational dino from [employer]. Thrive Questionnaire Date Thrive assessed: 05/28/24 I am a: Patient What is your living situation today?: I have a steady place to live Within the past 12 months, did the food you bought not last and you didn't have the money to get more?: Never true Within the past 12 months, did you worry whether your food would run out before you got money to buy more?: Never true Do you have trouble paying for medicines?: No Do you have trouble getting transportation to medical appointments?: No Do you have trouble paying your heating and electricity bill?: No Do you have trouble taking care of your child, family member or friend?: No Do you have trouble with day-to-day activities such as bathing, preparing meals, shopping, managing finances, etc.?: No Are you currently unemployed and looking for a job?: No Are you interested in more education?: No Please select the resources that you would like help with: Housing/Halfway Currently or been in a relationship where the following occur: No concerns reported THRIVE Score: 0 AUDIT C Alcohol Use Questionnaire (AUDIT-C) 1. How often do you have a drink containing alcohol?: Never Total Score: 0 CRISSY-7 AMB Questionnaire CRISSY-7 Date CRISSY - 7 assessed: 12/11/23 Feeling nervous, anxious, or on edge: 0 = Not at all Not being able to stop or control worryin = Not at all Worrying too much about different things: 0 = Not at all Trouble relaxin = Not at all Being so restless that it is hard to sit still: 0 = Not at all Becoming easily annoyed or irritable: 0 = Not at all Feeling afraid as if something awful might happen: 0 = Not at all Total CRISSY-7 score (0-4 normal; 5-9 mild; 10-14 moderate; 15-21 severe): 0 Source: Developed by Drs. Zander Aguila, Yuni Mcclure, Wilber Mays and colleagues, with an educational dino from [employer]. Review of Systems Const Denies chills and Denies fever(s) Eyes Denies blurry vision ENT Denies vertigo, Denies dizziness and Denies sore throat Card Denies chest pain at rest, Denies chest pain with activity, Denies diaphoresis, Denies dyspnea and Denies dyspnea on exertion Resp Denies cough, Denies dyspnea, Denies dyspnea on exertion and Denies wheezing GI Denies abdominal pain, Denies melena, Denies hematochezia, Denies constipation, Denies diarrhea and Denies loose stools Denies hematuria Musc Denies numbness and Denies tingling Skin/Breast Denies lesions Neuro Denies vertigo, Denies dizziness, Denies numbness and Denies tingling Psych Denies anxiety, Denies depression, Denies homicidal ideation, Denies suicidal ideation and Denies other (substance abuse) Aller/Immun Denies wheezing Physical exam (Primary Care) Vital Signs: Last Vital Signs Pulse 86 06/04/24 12:35 BP 124/78 06/04/24 12:35 Pulse Ox 96 06/04/24 12:35 Oxygen Delivery Method Room Air 06/04/24 12:35 Tobacco/Smoking Status: Tobacco use Status Tobacco use date assessed 12/11/23 06/04/24 12:34 Patient Tobacco Use Status Former Tobacco user 06/04/24 12:34 e-Cigarette/Vaping Use Currently Using 06/04/24 12:34 PHQ-9: PHQ-9 Score PHQ-9: Total score 0 06/04/24 12:48 Depression Screening Interpretation: Negative Thrive Assessment: Date of Thrive Assessment Date Thrive assessed 05/28/24 06/04/24 12:34 Currently or been in a relationship where the following occur: No concerns reported Const General: cooperative Nutritional Appearance: well nourished Orientation/consciousness: patient oriented x3 HENMT Head: Yes normal to inspection, Yes normocephalic and Yes atraumatic Ears: TM's normal bilaterally Eyes General: appearance normal, both eyes and all related structures Alignment and Position: alignment normal and position normal Neck Neck: Yes normal visual inspection and Yes no lymphadenopathy Thyroid: Thyroid normal Resp Effort & Inspection: normal respiratory effort Auscultation: clear to auscultation bilaterally Cardio Rate: regular rate Rhythm: regular rhythm Heart sounds: S1 normal heart sound present, S2 normal heart sound present and no murmurs GI Palpation (GI): Soft to palpation and nontender Auscultation: normal bowel sounds Skin Rashes: no rashes Neuro Other: slight head tic noted General: patient oriented x3, moves all extremities, no focal motor deficits and deep tendon reflexes 2+ bilaterally Romberg Test: Negative Extrem Other: RUE strong with lateral and anterior raises against resistance. Push strength +. Left thumb: IP joint, medial aspect with small nodular ? vesicle. tenderness described in the joint with flexion and extension at IP joint Psych Appearance: grossly normal Mental Status: mental status grossly normal Speech and movement: Normal speech and movement present Affect: normal affect Attitude: cooperative Thought process: Normal thought process present Thought content: Normal thought content present Insight: Good insight present (Psych) Judgement: Good judgement present (Psych) Assessment and Plan Assessment & Plan (1) Thumb pain: Code(s): M79.646 - Pain in unspecified finger(s) Plan: XR ordered (2) Physical exam: Code(s): Z00.00 - Encounter for general adult medical examination without abnormal findings Plan: encouraged to get labs drawn (3) Closed fracture of right proximal humerus: Code(s): S42.201A - Unspecified fracture of upper end of right humerus, initial encounter for closed fracture Qualifiers: Encounter type: subsequent encounter Fracture morphology: other fracture Fracture alignment: displaced Fracture healing: with routine healing Qualified Code(s): S42.291D - Other displaced fracture of upper end of right humerus, subsequent encounter for fracture with routine healing Plan: clear to start 2 days per week per-fernanda, + strength and no pain. Pt knows to ask for help if she needs it. Plan The patient agreed to the use of a medical affairs manager for this encounter. Scribed for EULOGIO Thomas-BC by Radha Crowell medical affairs manager, on 06/04/2024 at 12:45 EST. Orders: Orders XR finger LT min 2V Today M79.646 - Pain in unspecified finger(s) Coding Level of Care Code Est Pt Prev Care >65y(98842) Diagnoses Thumb pain M79.646 Physical exam Z00.00 Other closed displaced fracture of proximal end of right humerus with routine healing, subsequent encounter S42.291D Encounter type: subsequent encounter Fracture morphology: other fracture Fracture alignment: displaced Fracture healing: with routine healing
[2024-06-04 12:35] VITALS: BP 124/78; PULSE 86; O2SAT 96
== END 2024-06-04 13:47 | disposition home or self-care (01) ==
PROVIDERS: PCP Nurse Practitioner Family; Visit Provider Nurse Practitioner Family
DX: M79.646 Pain in unspecified finger(s) (principal); Z00.00 Encounter for general adult medical examination without abnormal findings; S42.291D Other displaced fracture of upper end of right humerus, subsequent encounter for fracture with routine healing
CPT/HCPCS: 99397

== ENCOUNTER 2024-06-04 13:12 | Outpatient (REF) | payer OTHER, SELFPAY ==
--- NOTE | ~2024-06-04 | XR_ITS ---
EXAMINATION: XR FINGER, LEFT THUMB CLINICAL INFORMATION: Pain in the left thumb COMPARISON: None available. TECHNIQUE: PA, lateral, and oblique views of the left thumb. FINDINGS: Mild-moderate osteoarthritis in the left thumb is evident at the IP joints with nonuniform joint space narrowing and prominent marginal osteophytes. Mild soft tissue swelling. No erosions. There is more moderate-severe osteoarthritis at the first CMC joint. More mild osteoarthritis is present in the triscaphe joint and multiple other interphalangeal joints in the hand. Chondrocalcinosis is evident at the wrist. No acute fractures are identified. Alignment of the carpal bones is not well assessed on these images. XR/XR finger LT min 2V IMPRESSION: 1. 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 No acute fractures. 2. 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
== END 2024-06-04 13:13 | disposition home or self-care (01) ==
LOC: HO.HMGCX 13:12
PROVIDERS: PCP Nurse Practitioner Family; Visit Provider Nurse Practitioner Family
DX: M79.645 Pain in left finger(s) (principal)
CPT/HCPCS: 73140

== ENCOUNTER 2025-01-20 09:21 | Outpatient (REF) | payer OTHER, SELFPAY ==
[2025-01-20 09:39] LABS: MANUAL DIFF FLAG NO
--- OUTSIDE RECORDS SUMMARY | 2025-01-20 10:09 | XMS_ITS ---
Author Organization [facility] Address [address] [facility] [address] Care Team Providers Care Trombone Slide Assembler Name Role Phone Steven Lopez Primary Care Provider Unav ailable Korin Shipman Unavailable [phone] Encounters Encounter Location Date Provider Diagnosis [facility] [place] [address] [facility] [place] [address] 10/28/2024 Korin Shipman Plan Of Treatment No Information Progress Notes * Desi PRADO EDOB: [birth year] (69 yo F)Acc No.[id number]:10/28/2024 Progress Note Patient:?Desi PRADO Provider:?Korin Shipman DPM :1955???Age:69 Y???Sex:Female D ate:10/28/2024 Address:[address] [id number] Pcp:ESME Thomas Subjective: * Chief Complaints: * ??? * Medical History:? Objective: * Vitals:? Assessment: Plan: * Treatment: * Images: * The named appointment provid er may or may not be the originator of this progress note, and it is not deemed complete until electronically signed by the appointment provider. Sign off status: Pending * Provider:?Korin Shipman DPM Date:? Generated for Liseth mckeon/Rigoberto/Mirtha on:?01/20/2025 10:09 AM EDT
--- OUTSIDE RECORDS SUMMARY | 2025-01-20 10:09 | XMS_ITS ---
Author Organization [facility] Address [address] [place] [address] Care Team Providers Care Dye Room Helper Name Role Phone Steven Lopez Primary Care Provider Unav ailable Korin Shipman Unavailable [phone] REASON FOR VISIT cx 10/28 Encounters Encounter Location Date Provider Diagnosis [facility] [place] [address] [facility] [place] [address] 10/27/2024 Korin Shipman Plan Of Treatment No Information Progress Notes * Desi SABA EDOB: [birth year] (69 yo F)Acc No.[id number]:10/27/2024 Patient:?Desi SABA :1955???Age:69 Y???Sex:Female Address:[address] [place], [address] * true * Date:? Generated for Printi ng/Fayasmanig/eTransmitting on:?01/20/2025 10:09 AM EDT
--- OUTSIDE RECORDS SUMMARY | 2025-01-20 10:09 | XMS_ITS ---
Author Organization [facility] Address [address] [facility] [place] [address] Care Team Providers Care Instructor Adjunct Surgical Technician Name Role Phone Steven Lopez Primary Care Provider Unav ailable Korin Shipman Unavailable [phone] REASON FOR VISIT 10/02 appt Encounters Encounter Location Date Provider Diagnosis [facility] [place] [address] [facility] [place] [address] 10/02/2023 Korin Shipman Plan Of Treatment No Information Progress Notes * Desi SABA EDOB: [birth year] (68 yo F)Acc No.[id number]:10/02/2023 Patient:?Desi Saba :1955???Age:68 Y???Sex:Female Address:[address] [place], [address] * true * Date:? Generated for Printi ng/Fayasmanig/eTransmitting on:?01/20/2025 10:09 AM EDT
--- OUTSIDE RECORDS SUMMARY | 2025-01-20 10:10 | XMS_ITS | Patient Health Record ---
Author Organization [facility] [place] Address [address] [place] [address] Care Team Providers Care Lactation Specialist Name Role Phone Steven Lopez Primary Care Provider Unav ailable Kimikd Korin Unavailable [phone] Allergies Allergen (clinical drug ingredient) Drug/Non Drug Allergy documented on EMR Reaction Allergy Type Onset Date Status sodium bisulfite bisulfites (uncoded) anaphylaxis Allergy Active Reason For Referral No Information Medications Medication SIG (Take, Route, Frequency, Duration) Notes Start Date End Date Status Lurasidone HCl 20 MG 1 tablet in the lazaro julee with food Orally Once a day Active Gabapentin 100 MG 1 capsule Orally bid Not-Taking Feldene 20 MG 1 capsule with food Orally Once a day for 30 Not-Taking Vitamin D3 Active Tylenol Active Piroxicam 20 MG TAKE 1 CAPSULE BY [facility] EVERY DAY WITH FOOD for 30 Active methIMAzole 5 MG 1 tablet Orally Once a day for 30 day(s) Active FLUoxetine HCl 20 MG 1 tablet Orally Onc e a day for 30 day(s) Active buPROPion HCl ER (XL) 150 MG 1 tablet in the morning Orally Once a day for 30 day(s) Active Atomoxetine HCl 25 MG 1 capsule Orally O nce a day Active Immunizations Vaccine Route Administration Date Status Comme nts COVID-19 Pfizer BioNTech Vaccine Unknown 11/11/2020 Administered First Dose:11/11/2020 Second Dose: 11/2020 Social History Tobacco Use: Social History Observation Description Date Details (start date - stop date) Never Smoker NA - NA Tobacco Use/Smoking Question Answer Notes Are you a: nonsmoker Additional Findings: Tobacco Non-User Ex-cigaret te smoker amount unknown Alcohol Screen Question Answer Notes Did you have a drink containing alcohol in the p ast year? No Points 0 Interpretation Negative Tobacco use other than smoking: Question Answer Notes Are you an other tobacco user? No Problems Problem Type SNOMED Code ICD Code Onset Dates Problem Status W/U Status Risk Notes Problem [id number] Other hammer toe(s) (acquired), left foot (M20.42) Active confirmed Encounters Encounter Location Date Provider Diagnosis [facility] [address] [place] [address] 10/27/2024 Korin Shipman Plan Of Treatment Pending Test Test Name Order Date X ray : Foot, left 3V 03/14/2021 Insurance Providers Payer Name Payer Address Payer Phone Subscriber Number Group Number Insured Name Patient Relationship to Insured Coverage Start Date Coverage End Date Blue Benefits [address] [address] [place] [address] [id number] Desi Saba Self - patient is the insured Medical (General) History Medical History History ICD Code Anxiety Arthritis Back,Hip,and Knee pain Broken bones Depression Gall bladder problems Numbness Psychiatric disorder thyroid Measles Mumps Chicken pox Joint implants/screws TMJ essential tremors bilateral Knee Pain - Right Surgical History Surgery Date(Month/Year) triple arthrodesis 1966 gallbladder 1994 rhinoplasty 1972 eye vitrectomy 2012
[2025-01-20 10:25] LABS: Basophils Percent Auto 0.6 % (0-2); Eosinophils Absolute Auto 0.2 X10*3/uL (0.0-0.4); Eosinophils Percent Auto 2.4 % (0-4); Hematocrit 40.3 % (37.0-47.0); Imm Gran Abs Auto 0.02 X10*3/uL (0.00-0.03); Imm Gran Pct Auto 0.3 % (0.0-0.4); Lymphocytes Absolute Auto 1.1 X10*3/uL (1.2-4.9); Lymphocytes Percent Auto 18.1 % (20-40); Mean Corpuscular HGB Conc 32.3 g/dl (31.0-35.0); Mean Corpuscular Hemoglobin 28.7 pg (27.0-33.0); Mean Platelet Volume 9.4 fL (9.4-12.3); Monocytes Absolute Auto 0.6 X10*3/uL (0.1-1.2); Monocytes Percent Auto 9.9 % (2-11); Neutrophils Absolute Auto 4.3 x10*3/uL (2.0-8.3); Neutrophils Percent Auto 68.7 % (45-73); Platelet Count 323 X10*3/uL (160-400); Red Blood Count 4.53 X10*6/uL (4.20-5.50); Red Cell Distribution Width 14.3 % (11.0-16.0); White Blood Count 6.2 X10*3/uL (4.8-10.8)
[2025-01-20 11:26] LABS: Iron 49 mcg/dL (30-160); Percent Iron Saturation 14 % (15-50); Total Iron Binding Capacity 347 mcg/dL (228-428); Unsaturated Iron Binding 298 ug/dL
[2025-01-20 11:45] LABS: Ferritin 35 ng/mL (10-250); Thyroid Stimulating Hormone 0.99 uIU/mL (0.32-4.0); Vitamin D 25-OH Total 65.2 ng/mL (>30)
[2025-01-20 11:51] LABS: Folate 3.7 ng/mL (> or = 4.0); Vitamin B12 194 pg/mL (200-900)
== END 2025-01-20 09:22 | disposition home or self-care (01) ==
LOC: HO.LAB 09:21
PROVIDERS: PCP Nurse Practitioner Family; Visit Provider Registered Nurse Psychiatric/Mental Health
DX: E55.9 Vitamin D deficiency, unspecified (principal); Z13.29 Encounter for screening for other suspected endocrine disorder; R53.82 Chronic fatigue, unspecified; Z13.0 Encounter for screening for diseases of the blood and blood-forming organs and certain disorders involving the immune mechanism; E53.9 Vitamin B deficiency, unspecified
CPT/HCPCS: 36415; 82306; 82607; 82728; 82746; 83540; 84443; 85025

== ENCOUNTER 2025-01-26 04:44 | Emergency (ER) | payer OTHER, SELFPAY ==
--- NOTE | ~2025-01-26 | XR_ITS ---
CLINICAL HISTORY: medial mall swelling erythema 3 view right ankle Comparison: None Findings: No acute fractures. Ankle mortise intact. Advanced degenerative change at the ankle joint. There is collapse of the talar dome and near-complete loss of the tibiotalar joint space. Productive changes at the medial and lateral malleoli. Postoperative changes of subtalar fusion. Small ankle effusion. No radiopaque foreign body. IMPRESSION: 1. 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 No acute fracture or malalignment. This document has been electronically signed by: Natalie Ramirez MD on 01/26/2025 07:40:11
[2025-01-26 04:53] VITALS: BP 153/53; PULSE 86; RESP 17; TEMP 36.7; O2SAT 100; BMI 30.7
[2025-01-26 05:00] VITALS: BP 153/53; PULSE 89; RESP 17; TEMP 36.7; O2SAT 100
--- NOTE | 2025-01-26 07:06 | ED.EXTPRO ---
HPI - Extremity Problem General Chief complaint: Extremity Problem Stated complaint: Right Foot Swelling Time Seen by Provider: 01/26/25 06:31 Source: patient, RN notes reviewed and old records reviewed Mode of arrival: wheelchair History of Present Illness ED Provider: Nora Douglas PA-C HPI Narrative: 69-year-old female with a past medical history of hyperthyroidism, presenting to the ED complaining of atraumatic right ankle pain, swelling, and erythema noted yesterday morning. Denies known trauma, fall, twisting, numbness/ tingling, weakness. Denies history of gout, fever, travel, history DVT Related Data Home Medications ?Medication ?Instructions ?Recorded ?Confirmed bupropion HCl 150 mg 24 hr tablet, 150 mg PO QAM 09/28/20 05/08/24 extended release atomoxetine 25 mg capsule 25 mg PO DAILY 01/15/23 05/08/24 fluoxetine 20 mg capsule 60 mg PO DAILY 01/15/23 05/08/24 acetaminophen 500 mg tablet 1,000 mg PO Q6H PRN pain 12/23/23 05/08/24 cholecalciferol (vitamin D3) 125 125 mcg PO DAILY 12/23/23 05/08/24 mcg (5,000 unit) capsule Previous Rx's ?Medication ?Instructions ?Recorded methimazole 5 mg tablet 5 mg PO DAILY #90 tabs 10/28/20 meclizine 25 mg tablet 25 mg PO TID PRN motion sickness 04/30/22 #10 tabs diclofenac sodium 1 % topical gel 2 g topical QID #100 grams 06/27/23 (Arthritis Pain (diclofenac)) alendronate 70 mg tablet 70 mg PO QWEEK #14 tabs 01/27/24 cyclobenzaprine 10 mg tablet 10 mg PO TID PRN muscle spasm #15 02/02/24 tabs lidocaine 5 % topical patch 1 patch topical DAILY #15 ea 02/02/24 cephalexin 500 mg capsule 500 mg PO QID 7 days #28 caps 01/26/25 naproxen 500 mg tablet 500 mg PO BID PRN pain 10 days #20 01/26/25 tabs prednisone 20 mg tablet 40 mg (2 x 20 mg) PO DAILY 5 days 01/26/25 #10 tabs Allergies Allergy/AdvReac Type Severity Reaction Status Date / Time metronidazole [From FLAGYL] Allergy Severe ANAPHYLAXIS Verified 01/26/25 04:57 sulfamethoxazole Allergy Severe Palpitation Verified 01/26/25 04:57 [From Bactrim] s trimethoprim [From Bactrim] Allergy Severe Palpitation Verified 01/26/25 04:57 s sulfite [Sulfite] Allergy Intermediate BISULFITES-ITCHING Verified 01/26/25 04:57 IN MOUTH & THROAT,SHORTNESS OF BREATH phenylalanine [PHENYLALANINE] Allergy Mild UNKNOWN Verified 01/26/25 04:57 barber pepper [GREEN PEPPER] Allergy Unknown LIP Verified 01/26/25 04:57 SWELLING From FLAGYL Allergy Severe ANAPHYLAXIS Uncoded 01/26/25 04:57 bisulfites Allergy Unknown itching Uncoded 01/26/25 04:57 peppers Allergy Unknown Unknown Uncoded 01/26/25 04:57 Review of Systems Review of Systems: Yes all other systems are reviewed and are negative Constitutional: Constitutional: Reports as per [facility] Past Medical History Attestation statement: The following information was validated with the patient. Source: old records reviewed Medical History Hyperthyroidism Vitamin D deficiency Subclinical hyperthyroidism Multinodular thyroid Surgical History H/O colonoscopy Hx of eye surgery Hx laparoscopic cholecystectomy Hx of cataract removal with insertion of prosthetic lens Hx of rhinoplasty Hx of breast augmentation Hx of foot surgery Family History Family History Father No problems noted. 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 occupational exposures/hazards: Yes Cognitive needs: No Hearing needs: No Vision needs: No Physical Exam Vital Signs: Vital Signs: Last Vital Signs Temp 98.0 F 01/26/25 08:24 Pulse 81 01/26/25 08:24 Resp 18 01/26/25 08:24 BP 143/77 H 01/26/25 08:24 Pulse Ox 96 01/26/25 08:24 O2 Del Method Room Air 01/26/25 08:24 BMI result Body Mass Index 30.7 Const: General: cooperative, healthy appearing and no acute distress Orientation/consciousness: patient oriented x3 Limitations: no limitations HEENT: Head: Yes normal to inspection and Yes atraumatic Ears: hearing grossly normal bilaterally General nose exam: Normal external nose present Face and sinus: Yes normal facial exam Eyes: General: appearance normal, both eyes and all related structures EOM: EOMs intact bilaterally Neck: Neck: Yes normal visual inspection and Yes no meningeal signs Resp: Effort & Inspection: normal respiratory effort and no respiratory distress Cardio: Rate: regular rate Skin: Rashes: no rashes Wounds: no wounds Neuro: General: patient oriented x3, tone normal and no meningeal signs Cranial nerves: Yes CN's II-XII intact bilaterally Gait exam (Neuro): Normal gait present Extrem: Other: right ankle with appreciable swelling / edema greatest to medial malleolus with erythema, warmth, and tenderness. FROM intact. Neurovascularly intact. No pitting edema. No calf tenderness. Course Course Course Narrative: -0907-- No leukocytosis. ESR / CRP and uric acid WNL. XR ankle RT min 3V IMPRESSION: 1. 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 No acute fracture or malalignment. > Will treat empirically for gout. Results discussed with patient including worrisome signs and symptoms and strict return precautions, and when to return to the emergency department. They verbalized understanding and feel safe for discharge at this time. Medications Administered Discontinued Medications Generic Name Dose Route Start Last Admin Trade Name Freq PRN Reason Stop Dose Admin Ketorolac Tromethamine 30 mg 01/26/25 06:51 01/26/25 07:14 Ketorolac Tromethamine 30 Mg/Ml Vial IM 01/26/25 06:52 30 mg ONCE ONE Administration Medical Decision Making Medical Decision Making MDM Narrative: 69-year-old female with a past medical history of hyperthyroidism, presenting to the ED complaining of atraumatic right ankle pain, swelling, and erythema noted yesterday morning. On exam vital signs stable, NAD, nontoxic appearing, physical exam as noted above. Concern for fracture vs sprain vs gout vs early cellulitis. Lower suspicion for septic joint at this time. Unlikely DVT. Plan: X-ray, labs, pain control, re-evaluate Please refer to course for remaining clinical decision making, interpretation of labs/imaging results, and discussions with consultants and/or family members. Differential Diagnosis Differential Diagnoses: The differential diagnosis associated with the presentation includes As above Admission/Observation Consideration of admission/observation: Escalation of care including admission/observation considered Lab Data MDM Lab Attestation statement: I reviewed the patient's lab results. 01/26/25 07:58 01/26/25 07:58 Labs: Lab Results 01/26/25 Range/Units 07:58 WBC 7.6 (4.8-10.8) X10*3/uL RBC 3.77 L (4.20-5.50) X10*6/uL Hgb 11.0 L (12.0-16.0) g/dl Hct 32.9 L (37.0-47.0) % MCV 87.3 (80.0-98.0) fL MCH 29.2 (27.0-33.0) pg MCHC 33.4 (31.0-35.0) g/dl RDW 14.3 (11.0-16.0) % Plt Count 260 (160-400) X10*3/uL MPV 8.9 L (9.4-12.3) fL Immature Gran % (Auto) 0.4 (0.0-0.4) % Neut % (Auto) 70.8 (45-73) % Lymph % (Auto) 15.5 L (20-40) % Morrison % (Auto) 10.9 (2-11) % Eos % (Auto) 2.1 (0-4) % Baso % (Auto) 0.3 (0-2) % Lymph # (Auto) 1.2 (1.2-4.9) X10*3/uL Morrison # (Auto) 0.8 (0.1-1.2) X10*3/uL Eos # (Auto) 0.2 (0.0-0.4) X10*3/uL Baso # (Auto) 0.0 (0.0-0.2) X10*3/uL Abs Immat Gran (auto) 0.03 (0.00-0.03) X10*3/uL Absolute Neuts (auto) 5.4 (2.0-8.3) x10*3/uL Absolute Nucleated RBC 0.000 (0.0-0.012) X10*3/uL Nucleated RBC % (auto) 0.0 (0.0-0.2) /100WBC ESR 14 (0-20) MM/HR Sodium 141 (135-145) mmol/L Potassium 4.2 (3.3-5.1) mmol/L Chloride 109 H (96-108) mmol/L Carbon Dioxide 26 (22-29) mmol/L Anion Gap 10 L (12-20) BUN 18 H (9-16) mg/dL Creatinine 0.74 (0.5-1.4) mg/dL Estim Creat Clear Calc 72.8 Estimated GFR > 60 Random Glucose 85 (60-115) mg/dL Uric Acid 4.4 (2.4-5.7) mg/dL Calcium 8.7 D (8.4-10.2) mg/dL C-Reactive Protein 0.31 (< or = 0.50) mg/dL Independent Interpretation I performed an independent interpretation of an: Plain X-Ray Radiology Impression Discussion of test interpretation with radiology: I have reviewed the radiologist's reading. External Record Review External record reviewed: Inpatient record, Office record, Outpatient record, Prior outpatient labs, Prior outpatient radiology, Primary care record and Outside ED record Tests considered The following testing was considered but not selected: As above Prescription Management I considered prescription management with: Pain Medication and Antibiotic Chronic Conditions Patient?s care impacted by: Other Social Determinants Patient?s care significantly limited by Social Determinants of Health including: Other Social Determinant of Health Discharge Plan Discharge Clinical Impression: Gout, Ankle swelling Patient Disposition: Home, Self-Care Instructions: Gout (ED), Swollen Ankle Joint (ED) Additional Instructions: Your x-ray shows osteoarthritic changes Your blood work is reassuring We are treating empirically for gout, prednisone as a steroid please take as prescribed In addition Keflex as an antibiotic, take as prescribed until completion Naproxen as an anti-inflammatory/ pain medication, take with food In addition take Tylenol If swelling, redness and warmth progresses or worsens, you are unable to ambulate return to the ED immediately Please follow-up with your doctor as well as Orthopedics Prescriptions: New prednisone 20 mg tablet 40 mg PO DAILY 5 Days Qty: 10 0RF cephalexin 500 mg capsule 500 mg PO QID 7 Days Qty: 28 0RF naproxen 500 mg tablet 500 mg PO BID PRN (Reason: pain) 10 Days Qty: 20 0RF No Action methimazole 5 mg tablet 5 mg PO DAILY Qty: 90 3RF alendronate 70 mg tablet 70 mg PO QWEEK Qty: 14 3RF meclizine 25 mg tablet 25 mg PO TID PRN (Reason: motion sickness) Qty: 10 0RF diclofenac sodium [Arthritis Pain (diclofenac)] 1 % gel 2 g topical QID Qty: 100 0RF Rx Instructions: apply to single elbow, wrist or hand; for hand includes palm/fingers/back of hand cyclobenzaprine 10 mg tablet 10 mg PO TID PRN (Reason: muscle spasm) Qty: 15 0RF lidocaine 5 % adhesive patch,medicated 1 patch topical DAILY Qty: 15 0RF Rx Instructions: leave on most painful area for up to 12 hrs atomoxetine 25 mg capsule 25 mg PO DAILY bupropion HCl 150 mg tablet extended release 24 hr 150 mg PO QAM fluoxetine 20 mg capsule 60 mg PO DAILY acetaminophen 500 mg tablet 1,000 mg PO Q6H PRN (Reason: pain) cholecalciferol (vitamin D3) 125 mcg (5,000 unit) capsule 125 mcg PO DAILY Referrals: [facility] [Provider Group] - 3 days Physician,Unknown J [Primary Care Provider] - 1 week Print Language: Prydeinig
[2025-01-26] MEDS: Ketorolac Tromethamine 30 MG/ML VIAL IM (07:14)
[2025-01-26 08:08] LABS: MANUAL DIFF FLAG NO
[2025-01-26 08:09] LABS: Basophils Percent Auto 0.3 % (0-2); Eosinophils Absolute Auto 0.2 X10*3/uL (0.0-0.4); Eosinophils Percent Auto 2.1 % (0-4); Hematocrit 32.9 % (37.0-47.0); Imm Gran Abs Auto 0.03 X10*3/uL (0.00-0.03); Imm Gran Pct Auto 0.4 % (0.0-0.4); Lymphocytes Absolute Auto 1.2 X10*3/uL (1.2-4.9); Lymphocytes Percent Auto 15.5 % (20-40); Mean Corpuscular HGB Conc 33.4 g/dl (31.0-35.0); Mean Corpuscular Hemoglobin 29.2 pg (27.0-33.0); Mean Corpuscular Volume 87.3 fL (80.0-98.0); Mean Platelet Volume 8.9 fL (9.4-12.3); Monocytes Absolute Auto 0.8 X10*3/uL (0.1-1.2); Monocytes Percent Auto 10.9 % (2-11); Neutrophils Absolute Auto 5.4 x10*3/uL (2.0-8.3); Neutrophils Percent Auto 70.8 % (45-73); Platelet Count 260 X10*3/uL (160-400); Red Blood Count 3.77 X10*6/uL (4.20-5.50); Red Cell Distribution Width 14.3 % (11.0-16.0); White Blood Count 7.6 X10*3/uL (4.8-10.8)
[2025-01-26 08:24] VITALS: BP 143/77; PULSE 81; RESP 18; TEMP 36.7; O2SAT 96
[2025-01-26 08:25] LABS: Anion Gap 10 (12-20); Blood Urea Nitrogen 18 mg/dL (9-16); C Reactive Protein 0.31 mg/dL (< or = 0.50); Calcium 8.7 mg/dL (8.4-10.2); Carbon Dioxide 26 mmol/L (22-29); Chloride 109 mmol/L (96-108); Creatinine Clr Calc Pharmacy 72.8; Estimated Glomerular Filt Rate > 60; Glucose Random 85 mg/dL (60-115); Potassium 4.2 mmol/L (3.3-5.1); Sodium 141 mmol/L (135-145); Uric Acid 4.4 mg/dL (2.4-5.7)
[2025-01-26 08:49] LABS: Erythrocyte Sedimentation Rate 14 MM/HR (0-20)
[2025-01-26 09:32] VITALS: BP 143/77; PULSE 81; RESP 18; TEMP 36.7; O2SAT 96
== END 2025-01-26 09:32 | disposition home or self-care (01) ==
PROVIDERS: Physician Assistant; Emergency Provider Emergency Medicine Emergency Medical Services
DX: M10.9 Gout, unspecified (principal); M25.571 Pain in right ankle and joints of right foot; M25.471 Effusion, right ankle; E05.90 Thyrotoxicosis, unspecified without thyrotoxic crisis or storm; Z79.899 Other long term (current) drug therapy
CPT/HCPCS: 36415; 73610; 80048; 84550; 85025; 85652; 86140; 96372; 99284; J1885

== ENCOUNTER → 2025-01-26 06:49 | Outpatient (BNV) | payer OTHER, SELFPAY | PROVIDERS: Emergency Provider Emergency Medicine Emergency Medical Services; Visit Provider Radiology Diagnostic Radiology | DX: R22.41 Localized swelling, mass and lump, right lower limb (principal) | CPT/HCPCS: 73610 ==

== ENCOUNTER 2025-03-16 14:07 | Outpatient (AMB) | payer OTHER, SELFPAY ==
--- NOTE | 2025-03-16 14:14 | A.OFFVIS_ITS ---
Vital Signs 03/16/25 14:17 Height 5 ft 4 in Weight 182 lb 15.739 oz BMI 31.4 BP 125/59 L Blood Pressure Location Lt brachial Position Sitting Pulse 76 Intake Visit Reasons: 1 yr follow up Intake Note: Desi presents in the office as a 1 year follow up. CC: states that she is feeling good and no complaints today! Allergies metronidazole [From FLAGYL] Allergy (Severe, Verified 03/16/25 14:19) ANAPHYLAXIS sulfamethoxazole [From Bactrim] Allergy (Severe, Verified 03/16/25 14:19) Palpitations trimethoprim [From Bactrim] Allergy (Severe, Verified 03/16/25 14:19) Palpitations sulfite [Sulfite] Allergy (Intermediate, Verified 03/16/25 14:19) BISULFITES-ITCHING IN MOUTH & THROAT,SHORTNESS OF BREATH phenylalanine [PHENYLALANINE] Allergy (Mild, Verified 03/16/25 14:19) UNKNOWN barber pepper [GREEN PEPPER] Allergy (Unknown, Verified 03/16/25 14:19) LIP SWELLING From FLAGYL Allergy (Severe, Uncoded 03/16/25 14:19) ANAPHYLAXIS bisulfites Allergy (Unknown, Uncoded 03/16/25 14:19) itching peppers Allergy (Unknown, Uncoded 03/16/25 14:19) Unknown HPI HPI 1 yr follow up: Details: Assessment & Plan (1) Tubular adenoma of colon: Comment: 2018 Last Code(s): D12.6 - Benign neoplasm of colon, unspecified Category: Medical Plan She did not have any problem with the prep. She is agreeable to 1 year follow- up to repeat the procedure. The procedure was well tolerated. The results were explained and the patient is agreeable to the follow-up interval as stated. The bowel pattern has returned to normal. Education was provided to tell any 1st degree relatives about their findings to be sure that they are screened by age 45. Educated that they will be put on a recall list when it is time for their repeat scope but should they move out of state or away from the hospital they will need to remember along with their primary to repeat the procedure in a timely fashion to avoid any adverse complications. Next time we will do a 2 day prep and a 1 weeks low residual diet. ROV 1 year. TODAY'S VISIT She denies any current GI problems. The only problem she has had with anesthesia and sedation is when the product is made with bisulfites as a preservative. This causes her tachycardia. She denies any cardiac or respiratory problems. No ID problems. She had a 10mm TA in 2018, her mother had polyps. She prefers the Miralax prep with dulcolax. However, I think she needs PEG this time because she failed to clear sufficiently and she is aware that she will go on a low-fiber diet for 2 days prior. [facility] Medical History Hyperthyroidism Vitamin D deficiency Subclinical hyperthyroidism Multinodular thyroid Surgical History H/O colonoscopy Hx of eye surgery Hx laparoscopic cholecystectomy Hx of cataract removal with insertion of prosthetic lens Hx of rhinoplasty Hx of breast augmentation Hx of foot surgery Family History Father No problems noted. 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: Yes Cognitive needs: No Hearing needs: No Vision needs: No Review of Systems Const Denies fatigue, Denies fever(s), Denies night sweats, Denies poor appetite and Denies weight loss ENT Reports Normal hearing present, Denies dental pain, Denies dysphagia, Denies hearing loss, Denies mouth pain, Denies odynophagia, Denies throat swelling, Denies tongue swelling and Reports other (Dentition adequate) Card Reports no additional complaints Resp Reports no additional complaints GI Details: Denies abdominal pain, Denies melena, Denies bloating, Denies hematochezia, Denies constipation, Denies GI cramping, Denies dysphagia, Denies excessive flatus, Denies early satiety, Denies heartburn, Denies diarrhea, Denies nausea, Denies odynophagia, Denies vomiting and Denies hematemesis Skin/Breast Denies pruritus, Denies lesions, Denies rash and Denies jaundice Neuro Reports Normal hearing present and Denies Abnormal speech present Endo Denies fatigue Aller/Immun Denies throat swelling and Denies tongue swelling Physical Exam Vital Signs: Last Vital Signs Pulse 76 03/16/25 14:17 BP 125/59 L 03/16/25 14:17 BMI result Body Mass Index 31.4 Const General: cooperative, no acute distress, well developed and well groomed Nutritional Appearance: well nourished and obese Orientation/consciousness: oriented to person, oriented to place and oriented to time Limitations: No language barrier HEENT Head: Yes normocephalic and Yes atraumatic Eyes General: appearance normal, both eyes and all related structures Pupils: Equal, round and reactive pupils present Neck Neck: Yes normal visual inspection and Yes no lymphadenopathy Thyroid: Thyroid normal Resp Effort & Inspection: normal respiratory effort and able to speak in complete sentences Auscultation: clear to auscultation bilaterally Cardio Rate: regular rate Rhythm: regular rhythm Heart sounds: Normal, physiologic split S2 sound present Peripheral pulses: radial pulses present and posterior tibial pulses present GI Inspection: No distended, No Abdominal panniculus present and Yes obesity Palpation (GI): Soft to palpation, nontender, no guarding, not rigid and No hepatosplenomegaly present Percussion: Yes normal to percussion Auscultation: normal bowel sounds Rectal Exam - Female: deferred Skin General skin exam: no rashes or lesions noted, turgor normal, skin not dry, no jaundice, No spider nevi and no striae Rashes: no rashes Nails: normal Neuro General: oriented to person, oriented to place and oriented to time Cranial nerves: Yes Equal, round and reactive pupils present and Yes Normal hearing present Speech: No Abnormal speech present Extrem General: Yes normal to inspection, No clubbing, No cyanosis and No edema Psych Appearance: grossly normal and well kempt Mental Status: mental status grossly normal Speech and movement: Normal speech and movement present Affect: normal affect Attitude: cooperative Thought process: Normal thought process present and not confabulating Thought content: Normal thought content present Insight: Good insight present (Psych) Judgement: Good judgement present (Psych) Results Reviewed Results Reviewed: Laboratory Tests 01/20/25 01/26/25 09:37 07:58 WBC 7.6 Hgb 11.0 L Hct 32.9 L MCV 87.3 MCH 29.2 Plt Count 260 Estimated GFR > 60 TSH 0.99 Assessment & Plan Assessment & Plan (1) Tubular adenoma of colon: Comment: 2018 Lsat Code(s): D12.6 - Benign neoplasm of colon, unspecified Category: Medical Plan She denies any current GI problems. The only problem she has had with anesthesia and sedation is when the product is made with bisulfites as a preservative. This causes her tachycardia. She denies any cardiac or respiratory problems. No ID problems. She had a 10mm TA in 2018, her mother had polyps. She prefers the Miralax prep with dulcolax. However, I think she needs PEG this time because she failed to clear sufficiently and she is aware that she will go on a low-fiber diet for 2 days prior. Orders: Orders Colonoscopy - GI Use Only Today D12.6 - Benign neoplasm of colon, unspecified Medications: New sodium,potassium,mag sulfates 17.5-3.13-1.6 gram (Suprep Bowel Prep Kit) 480 mL orally; FOR COLONOSCOPY PREP 354 mL 0RF bisacodyl (Dulcolax (bisacodyl)) 10 mg (2 x 5 mg) PO BEDTIME 4 tabs 0RF 2 days Coding Level of Care Code Est Pt Level 3 (36418) Diagnoses Tubular adenoma of colon D12.6
[2025-03-16 14:17] VITALS: BP 125/59; PULSE 76; BMI 31.4
--- OUTSIDE RECORDS SUMMARY | 2025-03-16 15:29 | XMS_ITS ---
Author Organization [facility] [place] Address [address] [place] [address] Care Team Providers Care Agility Instructor Name Role Phone Steven Lopez Primary Care Provider Unav ailable Korin Shipman Unavailable [phone] Allergies Allergen (clinical drug ingredient) Drug/Non Drug Allergy documented on EMR Reaction Allergy Type Onset Date Status sodium bisulfite bisulfites (uncoded) anaphylaxis Allergy Active REASON FOR VISIT Painful nail(s) aggrevated by shoes causing difficulty standing/walking, Painful Toe(s) Medications Medication SIG (Take, Route, Frequency, Duration) Notes Start Date End Date Status buPROPion HCl ER (XL) 150 MG 1 tablet in the morning Orally Once a day for 30 day(s) Active FLUoxetine HCl 20 MG 1 tablet Orally Onc e a day for 30 day(s) Active Atomoxetine HCl 25 MG 1 capsule Orally O nce a day Active methIMAzole 5 MG 1 tablet Orally Once a day for 30 day(s) Active Piroxicam 20 MG TAKE 1 CAPSULE BY [facility] EVERY DAY WITH FOOD for 30 Active Feldene 20 MG 1 capsule with food Orally Once a day for 30 Not-Taking Gabapentin 100 MG 1 capsule Orally bid Not-Taking Lurasidone HCl 20 MG 1 tablet in the lazaro julee with food Orally Once a day Active Tylenol Active Vitamin D3 Active Social History Tobacco Use: Social History Observation Description Date Details (start date - stop date) Never Smoker NA - NA Tobacco use other than smoking: Question Answer Notes Are you an other tobacco user? No Tobacco Control (Standard) Question Answer Notes Tobacco use: Nonsmoker Additional Findings: Tobacco non-user Current no nsmoker AUDIT-C (Standard) Question Answer Notes Did you have a drink containing alcohol in the p ast year? No Points 0 Interpretation Negative Vital Signs Height 5ft 4in in 03/04/2025 Weight 170 lbs 03/04/2025 BMI 29.18 kg/m2 03/04/2025 Blood pressure systolic 120 mm Hg 03/04/20 25 Blood pressure diastolic 70 mm Hg 025 Encounters Encounter Location Date Provider Diagnosis [facility] [address] 03/04/2025 Korin Shipman Tinea unguium B35.1 ; Other hammer toe(s) (acquired), left foot M20.42 ; Pain in right toe(s) M79.674 and Pain in left toe(s) M79.675 Assessments Encounter Date Diagnosis (ICD Code) Assessment Notes Treatment Notes Treatment Clinical Notes Section Notes 03/04/2025 Tinea unguium (ICD-10 - B35.1) 03/04/2025 Other hammer toe(s) (acquired), left foot (ICD-10 - M20.42) 03/04/2025 Pain in right toe(s) (ICD-10 - M79.674) 03/04/2025 Pain in left toe(s) (ICD-10 - M79.675) Plan Of Treatment Next Appt Details Follow Up: 3 Months, Reason: Provider Name:Korin yi, 06/02/2025 03:15:00 PM, [address] [place] [address], [id number], Procedure Notes * Category Sub-Category Detail Notes Debride Nail 6-10 Nail debridement Due to the cl inical pathology outlined in the exam findings, performance of this nail treatment is medically necessary as its management by an unskilled/untrained nonprofessional would put this patients foot and overall health at risk. Therefore, debridement to affected nail(s), as described in exam ( TA, T1, T2, T3, T4, T5, T6, T7, T8, T9, ), was performed exclusively by the physician of record to reduce/remove overall nail length, girth, thickness, subungual debris, and necrotic tissue, by manual and/or electrical means through the use of a nail nipper and/or dremel-type drier and grinder tender, to a more viable healthy nail plate or bed tissue 6-10 nails in total. Silver nitrate was used for any petechial bleeding as necessary. Definitive antifungal treatment options, both pharmaceutical and surgical, have been reviewed and discussed with the patient. The patient solely prefers the use of intermittent/as needed professional debridement services for their nail condition and understands the need for additional periodic treatments to maintain effectiveness in symptomatic relief - 56695 Progress Notes * Desi SABA EDOB: [birth year] (69 yo F)Acc No.[id number]:03/04/2025 Progress Note Patient:?Desi SABA Provider:?Korin Shipman DPM :1955???Age:69 Y???Sex:Female D ate:03/04/2025 Address:[address] [place], [place] [id number] Pcp:ESME Thomas Subjective: * Chief Complaints: * ???Painful nail(s) aggrevate d by shoes causing difficulty standing/walkingPainful Toe(s) * HPI: ???Painful Nails:?Pt States Last PCP Visit:?Date:?12/15/2024 ???Toe pain:?Nature:?tenderness.?Location:?Left foot, 2nd toe, 3rd toe.?Course:?worse.?Aggravated by:?any pressure, shoes.?Treatments:?rest/alter normal daily activity, change in shoes.? * ROS:?General/Constitutional:?Nausea?denies.?Vomiting?denies.?Hunger Thirst?denies.?Loss appetite?denies.?Chills?denies.?Fatigue?denies.?Fever?denies.?Night Sweats?denies.?Unexplained weight loss?denies.?Unexplained weight gain?denies.?HEENTM:?Dentures?denies.?Dizziness?denies.?Glasses/contacts?denies.?Retinopathy?de nies.?Blurred/double vision?denies.?TMJ?denies.?Discharge/drainage?denies.?Implants?denies.?Sore throat?denies.?Dental implants?denies.?Hard of hearing ?denies.?Difficulty chewing/swallowing/speaking?denies.?Nose bleeds?denies.?Sore mouth?denies.?Respiratory:?On Oxygen?denies.?Pneumonia/pleurisy?denies.?Bronchitis?denies.?Emphysema?denies.?C oughing?denies.?Cough blood?denies.?Shortness of breath?denies.?Wheezing?denies.?Cardiovascular:?Pacemaker?denies.?MVP?denies.?WPW?denies.?CHF?denies.?Heart attack?denies.?Septal defect?denies.?Rapid beat?denies.?Chest pain ?denies.?Atrial Fib.?denies.?Murmur/Palpitations?denies.?Gastrointestinal:?Hemorrhoids?denies.?Stomach/Abdominal pain?denies.?Dark blood stool?denies.?Irritable bowel ?denies.?Constipation?denies.?Diarrhea?denies.?Hematology:?Swelling?denies.?Clots?denies.?Varicose Veins?denies.?Bruising?denies.?Bleeding problem?denies.?Genitourinary:?Blood urine?denies.?Frequent/Painfu/urination/bladder control?denies.?Kidney stones?denies.?Infection (UTI)?denies.?Nephropathy?denies.?sex trans dis (STD)?denies.?Prostate?denies.?Musculoskeletal:?Hammertoes?denies.?Bunions?denies.?Back Pain?denies.?Muscle Cramps/ Resting?denies.?Muscle cramps / walking?denies.?Generalized aches and pains?denies.?Weakness?denies.?Integ.:?Goyal?denies.?Scars?denies.?Corns/calluses?denies.?Ingrown nails?denies.?Painful nails?denies.?Open Sores?denies.?Rashes?denies.?Neurologic:?Difficulty sleeping?denies.?Brain disorder?denies.?Numbness?denies.?Balance trouble?denies.?Confusion?denies.?Fainting/blackouts?denies.?Tingling?denies.?Tr emors?denies.? * Medical History:? * Surgical History:?triple art hrodesis 1966gallbladder 1995rhinoplasty 1972eye vitrectomy 2013 * Hospitalization/Major Diagno stic Procedure:?Denies Past Hospitalization * Family History:?Mother: dece ased, diagnosed with Other malignant neoplasm of unspecified site, Family history of arthritis.?Father: , diagnosed with Other malignant neoplasm of unspecified site, Diabetic - NIDDM.?Paternal Grand Father: diagnosed with Unspecified heart disease.?Maternal Grand Father: diagnosed with Unspecified heart disease.?Siblings: diagnosed with Other malignant neoplasm of unspecified site.? * Social History:?Tobacco Use:?Tobacco use other than smoking?Are you an other tobacco user??No ?Tobacco Control (Standard)?Tobacco use:?Nonsmoker ?Additional Findings: Tobacco non-user?Current nonsmoker ???Drugs/Alcohol:?Drugs?Have you used drugs other than those for medical reasons in the past 12 months??No ???Miscellaneous:?Caffeine: yes, frequency:, 1-2 cups per day. ?Children: no. ?Exercise: yes, walking. ?Marital status: single. 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 ???Drug/Alcohol:?AUDIT-C (Standard)?Did you have a drink containing alcohol in the past year??No ?Points?0 ?Interpretation?Negative * Medications:?TakingLurasidon e HCl 20 MG Tablet 1 tablet in the evening with food Orally Once a day Atomoxetine HCl 25 MG Capsule 1 capsule Orally Once a day buPROPion HCl ER (XL) 150 MG Tablet Extended Release 24 Hour 1 tablet in the morning Orally Once a day FLUoxetine HCl 20 MG Tablet 1 tablet Orally Once a day methIMAzole 5 MG Tablet 1 tablet Orally Once a day Piroxicam 20 MG Capsule TAKE 1 CAPSULE BY MOUTH EVERY DAY WITH FOOD Tylenol Vitamin D3 Taking Lurasidone HCl 20 MG Tablet 1 tablet in the evening with food Orally Once a day Taking Atomoxetine HCl 25 MG Capsule 1 capsule Orally Once a day Taking buPROPion HCl ER (XL) 150 MG Tablet Extended Release 24 Hour 1 tablet in the morning Orally Once a day Taking FLUoxetine HCl 20 MG Tablet 1 tablet Orally Once a day Taking methIMAzole 5 MG Tablet 1 tablet Orally Once a day Taking Piroxicam 20 MG Capsule TAKE 1 CAPSULE BY MOUTH EVERY DAY WITH FOOD Taking Tylenol Taking Vitamin D3 Not-Taking/PRNFeldene 20 MG Capsule 1 capsule with food Orally Once a day Gabapentin 100 MG Capsule 1 capsule Orally bid Medication List reviewed and reconciled with the patientNot-Taking/PRN Feldene 20 MG Capsule 1 capsule with food Orally Once a day Not-Taking/PRN Gabapentin 100 MG Capsule 1 capsule Orally bid Medication List reviewed and reconciled with the patient * Allergies:?bisulfites: anaph ylaxisyes[Allergies Verified] Objective: * Vitals:?Ht: 5ft 4in, Wt:170, BMI:29.18, Shoe size: 8.5, BP:120/70mm Hg, Ht-cm: 162.56 cm, Wt-k.11 kg. * Examination: ???Nails: ?NAILS are:?Elongated, overgrown, dystrophic, lytic, greater than 3mm thick, discolored and friable with crumbly malodorous subungual debris, with pain on palpation, , TA, T1, T2, T3, T4, T5, T6, T7, T8, T9.?Orthopedic: ?DIGITAL DEFORMITIES:?Digital contracture, PIPJ, 2-5 B/L, incompl-reducible with WB, or to push-up test, no over, nor underlapping.?FOOTWEAR EVALUATION:? shoe gear properties exacerbate patients foot/toe deformity.?General Examination: ?GENERAL APPEARANCE:?Reveals a pleasant, alert, well nourished, well- developed, well hydrated individual, who demonstrates proper attention to hygiene/body habitus, and is in no acute distress, Pt serves as own historian for office visit today.?ORIENTED:?person, place, and time.?Neurological: ?SENSORY:?Neurological exam reveals intact sensorium, pain sensation normal, vibration sensation intact, pinprick sensation is normal in the lower extremities, Pt denies, anesthesia, burning, paresthesia, tingling, B/L.?Vascular: ?DP PULSES (B):?3/4, B/L.?PT PULSES (B):?3/4, B/L.?CAPILLARY FILL TIME:?immediate, all digits, B/L.?TROPHIC CONDITION-TEXTURE/ELASTICITY/TURGOR/HAIR GROWTH (B):?normal, B/L.? Assessment: * Assessment: 1.?Tinea unguium - B35.1???2 .?Other hammer toe(s) (acquired), left foot - M20.42 (Primary)???Specify :Acute problem, Stable???3.?Pain in right toe(s) - M79.674???4.?Pain in left toe(s) - M79.675??? Plan: * Treatment: * Procedures:?Debride Nail 6-10:?Nail debridement?Due to the clinical pathology outlined in the exam findings, performance of this nail treatment is medically necessary as its management by an unskilled/untrained nonprofessional would put this patients foot and overall health at risk. Therefore, debridement to affected nail(s), as described in exam ( TA, T1, T2, T3, T4, T5, T6, T7, T8, T9, ), was performed exclusively by the physician of record to reduce/remove overall nail length, girth, thickness, subungual debris, and necrotic tissue, by manual and/or electrical means through the use of a nail nipper and/or dremel-type drier and grinder tender, to a more viable healthy nail plate or bed tissue 6- 10 nails in total. Silver nitrate was used for any petechial bleeding as necessary. Definitive antifungal treatment options, both pharmaceutical and surgical, have been reviewed and discussed with the patient. The patient solely prefers the use of intermittent/as needed professional debridement services for their nail condition and understands the need for additional periodic treatments to maintain effectiveness in symptomatic relief - 48328.? * Procedure Codes:?33322 DEBRI DE NAIL, 6 OR MORE * Preventive Medicine:? ??Counseling:?Discussion:?-12: Office or other outpatient visit for the evaluation and management of an established patient, which required a medically appropriate history and/or examination and STRAIGHTFORWARD level of MEDICAL DECISION MAKING, 1 SELF-LIMITED OR MINOR PROBLEM, MINIMAL- NO AMOUNT/COMPLEXITY OF DATA TO BE REVIEWED/ANALYZED, AND MINIMAL RISK OF COMPLICATION/MORBIDITY. The visit on the day of the encounter encompassed interpreting the data and educating the patient as to the nature of their condition, treatment options available according to their individual PMH, meds, allergies, and overall health/living conditions, as well as any potential risks or complications that may occur from a failure to adhere to, and participate in, the recommended course of therapy. The discussion included a complete verbal, and/or written explanation of the examination results, any x-rays taken, the proposed diagnosis, and outline of the treatment plan. A schedule for future care needs was also explained. The patient verbalized an understanding of the instructions at this time and agreed to be an active participant in their treatment. If the patient should think of any questions or concerns after the visit, I have encouraged the patient to call the office.?Digital Treatment:?HT- I explained to the patient the possible etiologies of Hammertoes, including genetics/foot type/shoegear/activity level/exercise routine and the risks/benefits of all the different treatment options for their pain including: No treatment at all, Rest, Ice, New/supportive/wider/deeper Shoe gear, Digital Padding/Strapping/Taping/Bracing/Gel protective sleeves, Foot/Ankle AFO Bracing, Stretching exercises, Deep Tissue Massage, Arch support/shoe inserts with splay metatarsal padding, and Custom orthoses. I insisted that any digital devices be removed daily and not worn overnight for safety. The patient is to carefully examine the toes daily for any skin irritation while using any splinting or padding device. The advantages and disadvantages of each option were discussed and the patients questions re: shoe gear, padding, custom vs prefabricated inserts, activity level, and consistency in home treatment regimens for optimal success were answered to their verbally confirmed satisfaction.?Shoe Gear Counseling:?The patient and I reviewed the types of shoes they should be wearing. My recommendation included obtaining a well-fitted shoe with a good supportive, non-foldable nor twistable sole, plenty of toe/room for the forefoot, and proper arch support. Based on todays examination, I recommended the patient look for new shoes, by having their feet professionally measured. We discussed that generally the best time of the day for a shoe fitting is the afternoon. Different shoes types and brands to best match the patients occupation and vocation were discussed. Specific brand selection will be up to the patient, their individual foot condition/deformities, and fit. The patient and I reviewed the standard new shoe break in period by wearing them for a few hours a day while checking for redness or sores as wear time is increased. The patient verbally confirmed to understanding the information discussed.? ??Screening/Special Tests:?Fall Risk?Screening:?No falls in the past year ?FALLS: Screening for Future Fall Risk?Have you had any falls with injury in the past year??No * Follow Up:?3 Months * Images: * Sign off status: Completed true * Provider:?Korin Shipman, DPM Date:? Generated for Printi ng/Fayasmanig/eTransmitting on:?03/16/2025 03:28 PM EDT History and Physical Notes * HPI (History of Present Illness) Category Sub-Category Detail Notes Category Not es Toe pain Nature: tenderness Location: Left foot, 2nd toe, 3rd toe Course: worse Aggravated by: any pressure, shoes Treatments: rest/alter normal da alverto activity, change in shoes Painful Nails Pt States Last PCP Visit: Date:: 12/15/2024 Examination Category Sub-Category Detail Notes Category Not es Neurological SENSORY: Neurological exa m reveals intact sensorium, pain sensation normal, vibration sensation intact, pinprick sensation is normal in the lower extremities, Pt denies, anesthesia, burning, paresthesia, tingling, B/L Orthopedic FOOTWEAR EVALUATION: shoe gear p roperties exacerbate patients foot/toe deformity DIGITAL DEFORMITIES: Digital contracture , PIPJ, 2-5 B/L, incompl-reducible with WB, or to push-up test, no over, nor underlapping General Examination GENERAL APPEARANCE: Reveals a pleasant, alert, well nourished, well-developed, well hydrated individual, who demonstrates proper attention to hygiene/body habitus, and is in no acute distress, Pt serves as own historian for office visit today ORIENTED: person, place, and t ashley Vascular DP PULSES (B): 3/4, B/L PT PULSES (B): 3/4, B/L CAPILLARY FILL TIME: immediate, all digi ts, B/L TROPHIC CONDITION-TEXTURE/EL ASTICITY/TURGOR/HAIR GROWTH (B): normal, B/L Nails NAILS are: Elongated, overg rown, dystrophic, lytic, greater than 3mm thick, discolored and friable with crumbly malodorous subungual debris, with pain on palpation, , TA, T1, T2, T3, T4, T5, T6, T7, T8, T9
--- OUTSIDE RECORDS SUMMARY | 2025-03-16 15:29 | XMS_ITS ---
[facility] Address [address] [facility] [place] [address] Care Team Providers Care Vp Production Name Role Phone Steven Lopez Primary Care Provider Unav ailable Korin Shipman Unavailable [phone] Encounters Encounter Location Date Provider Diagnosis [facility] [address] [place] [address] 10/28/2024 Korin Shipman Plan Of Treatment Next Appt Details Provider Name:Korin yi, 06/02/2025 03:15:00 PM, [address] [place], [address], Progress Notes * Desi SABA EDOB: [birth year] (69 yo F)Acc No.[id number]:10/28/2024 Progress Note Patient:?Desi SABA Provider:?Korin Shipman DPM :1955???Age:69 Y???Sex:Female D ate:10/28/2024 Address: [address] [id number] Pcp:ESME Thomas Subjective: * Chief Complaints: * ??? * Medical History:? Objective: * Vitals:? Assessment: Plan: * Treatment: * Images: * The named appointment provid er may or may not be the originator of this progress note, and it is not deemed complete until electronically signed by the appointment provider. Sign off status: Pending * Provider:Ladi Shipman DPM Date:? Generated for Liseth mckeon/Rigoberto/Mirtha on:?03/16/2025 03:28 PM EDT
--- OUTSIDE RECORDS SUMMARY | 2025-03-16 15:29 | XMS_ITS | Patient Health Record ---
Author Organization [facility] [place] Address [address] [place] [address] Care Team Providers Care Area Development Manager Name Role Phone Steven Lopez Primary Care Provider Unav ailable Kimikd Korin Unavailable [phone] Allergies Allergen (clinical drug ingredient) Drug/Non Drug Allergy documented on EMR Reaction Allergy Type Onset Date Status sodium bisulfite bisulfites (uncoded) anaphylaxis Allergy Active Reason For Referral No Information Medications Medication SIG (Take, Route, Frequency, Duration) Notes Start Date End Date Status Feldene 20 MG 1 capsule with food Orally Once a day for 30 Not-Taking Gabapentin 100 MG 1 capsule Orally bid Not-Taking buPROPion HCl ER (XL) 150 MG 1 tablet in the morning Orally Once a day for 30 day(s) Active FLUoxetine HCl 20 MG 1 tablet Orally Onc e a day for 30 day(s) Active Lurasidone HCl 20 MG 1 tablet in the lazaro julee with food Orally Once a day Active Atomoxetine HCl 25 MG 1 capsule Orally O nce a day Active Tylenol Active Vitamin D3 Active methIMAzole 5 MG 1 tablet Orally Once a day for 30 day(s) Active Piroxicam 20 MG TAKE 1 CAPSULE BY [facility] EVERY DAY WITH FOOD for 30 Active Immunizations Vaccine Route Administration Date Status [...] ast year? No Points 0 Interpretation Negative Problems Problem Type SNOMED Code ICD Code Onset Dates Problem Status W/U Status Risk Notes Problem [id number] Other hammer toe(s) (acquired), left foot (M20.42) Active confirmed Vital Signs Blood pressure diastolic 70 mm Hg 03/04/2025 Height 5ft 4in in 03/04/2025 Blood pressure systolic 120 mm Hg 03/04/2025 Weight 170 lbs 03/04/2025 BMI 29.18 kg/m2 03/04/2025 Encounters Encounter Location Date [facility] [address] [place] [address] 03/04/2025 Korin Shipman Tinea unguium B35.1 ; Other hammer toe(s) (acquired), left foot M20.42 ; Pain in right toe(s) M79.674 and Pain in left toe(s) M79.675 [facility] [address] [place] [address] 10/27/2024 Korin Shipman Assessments Encounter Date Diagnosis (ICD Code) Assessment Notes Treatment Notes Treatment Clinical Notes Section Notes 03/04/2025 Tinea unguium (ICD-10 - B35.1) 03/04/2025 Other hammer toe(s) (acquired), left foot (ICD-10 - M20.42) 03/04/2025 Pain in right toe(s) (ICD-10 - M79.674) 03/04/2025 Pain in left toe(s) (ICD-10 - M79.675) Plan Of Treatment Pending Test Test Name Order Date X ray : Foot, left 3V 03/14/2021 Next Appt Details Provider Name:Korin yi, 06/02/2025 03:15:00 PM, [address] [place] [address], [phone], Insurance Providers Payer Name Payer Address Payer Phone Subscriber Number Group Number Insured Name Patient Relationship to Insured Coverage Start Date Coverage End Date Blue Benefits [address] [address] [place] [id number] Desi Saba Self - patient is the insured Medical (General) History Medical History History ICD Code Anxiety Arthritis Back,Hip,and Knee pain Broken bones Depression Gall bladder problems Numbness Psychiatric disorder thyroid Measles Mumps Chicken pox Joint implants/screws TMJ essential tremors bilateral Knee Pain - Right Surgical History Surgery Date(Month/Year) triple arthrodesis 1966 gallbladder 1995 rhinoplasty 1971 eye vitrectomy 2012
--- OUTSIDE RECORDS SUMMARY | 2025-03-16 15:29 | XMS_ITS ---
Author [facility] [place] Address [address] [facility] [place] [address] Care Team Providers Care Dinkey Driver Name Role Phone Steven Lopez Primary Care Provider Unav ailable Korin Shipman Unavailable [phone] REASON FOR VISIT cx 10/28 Encounters Encounter Location Date Provider Diagnosis [facility] [place] [address] [facility] [place] [address] 10/27/2024 Korin Shipman Plan Of Treatment Next Appt Details Provider Name:Korin yi, 06/02/2025 03:15:00 PM, [address] [place], [address], Progress Notes * Desi SABA EDOB: [birth year] (69 yo F)Acc No.[id number]:10/27/2024 Patient:?Desi SABA :1955???Age:69 Y???Sex:Female Address:[address] [place], [address] * true * Date:? Generated for Printi ng/Faxing/eTransmitting on:?03/16/2025 03:28 PM EDT
== END 2025-03-16 14:43 | disposition home or self-care (01) ==
LOC: HO.HGI 14:08
PROVIDERS: PCP Nurse Practitioner Family; Visit Provider Nurse Practitioner
DX: D12.6 Benign neoplasm of colon, unspecified (principal)
CPT/HCPCS: 99213

== ENCOUNTER → 2025-03-16 14:07 | Outpatient (BNVA) | payer OTHER, SELFPAY | PROVIDERS: PCP Nurse Practitioner Family; Visit Provider Nurse Practitioner ==

== ENCOUNTER 2025-03-18 11:25 | Outpatient (REF) | payer OTHER, SELFPAY ==
--- OUTSIDE RECORDS SUMMARY | 2025-03-18 12:56 | XMS_ITS ---
Author Organization [facility] Address [address] [facility] [place] [address] Care Team Providers Care Carpet Measurer Name Role Phone Steven Lopez Primary Care Provider Unav ailable Korin Shipman Unavailable [phone] Encounters Encounter Location Date Provider Diagnosis [facility] [address] [place] [address] 10/28/2024 Korin Shipman Plan Of Treatment Next Appt Details Provider Name:Korin yi, 06/02/2025 03:15:00 PM, [address] [place], [address], Progress Notes * Desi SABA EDOB: [birth year] (69 yo F)Acc No.[id number]:10/28/2024 Progress Note Patient:?Desi SABA Provider:?Korin Shipman DPM :1955???Age:69 Y???Sex:Female D ate:10/28/2024 Address: [address] [id number] Pcp:ESME Thomas Subjective: * Chief Complaints: * ??? * Medical History:? Objective: * Vitals:? Assessment: Plan: * Treatment: * Images: * The named appointment provid er may or may not be the originator of this progress note, and it is not deemed complete until electronically signed by the appointment provider. Sign off status: Pending * Provider:Ladi Shipman DPM Date:? Generated for Liseth mckeon/Rigoberto/Mirtha on:?03/18/2025 12:55 PM EDT
--- OUTSIDE RECORDS SUMMARY | 2025-03-18 12:56 | XMS_ITS | Patient Health Record ---
Author Organization [facility] [place] Address [address] [place] [address] Care Team Providers Care Web Publisher Name Role Phone Steven Lopez Primary Care Provider Unav ailable Kimikd Korin Unavailable [phone] Allergies Allergen (clinical drug ingredient) Drug/Non Drug [...] Piroxicam 20 MG TAKE 1 CAPSULE BY [facility] EVERY DAY WITH FOOD for 30 Active [...] Problem Status W/U Status Risk Notes Problem [id number] Other hammer toe(s) (acquired), left foot (M20.42) Active confirmed Vital Signs Blood pressure diastolic 70 mm Hg 03/04/2025 Height 5ft 4in in 03/04/2025 Blood pressure systolic 120 mm Hg 03/04/2025 Weight 170 lbs 03/04/2025 BMI 29.18 kg/m2 03/04/2025 Encounters Encounter Location Date [facility] [place] [facility] [address] [place] [address] 03/04/2025 Korin Shipman Tinea unguium B35.1 ; Other hammer toe(s) (acquired), left foot M20.42 ; Pain in right toe(s) M79.674 and Pain in left toe(s) M79.675 [facility] [place] [facility] [address] [place] [address] 10/27/2024 Korin Shipman Assessments Encounter Date Diagnosis [...] Details Provider Name:Korin yi, 06/02/2025 03:15:00 PM, [address] [place] [address], [phone], Insurance Providers Payer Name Payer Address Payer Phone Subscriber Number Group Number Insured Name Patient Relationship to Insured Coverage Start Date Coverage End Date Blue Benefits [address] [address] [place] [id number] Desi Saba Self - patient is the [...]
--- OUTSIDE RECORDS SUMMARY | 2025-03-18 12:56 | XMS_ITS ---
Author Organization [facility] [place] Address [address] [place] [address] Care Team Providers Care Headwaitress Name Role Phone Steven Lopez Primary Care Provider Unav ailable Korin Shipman Unavailable [phone] Allergies Allergen (clinical drug ingredient) Drug/Non Drug [...] Piroxicam 20 MG TAKE 1 CAPSULE BY [facility] EVERY DAY WITH FOOD for 30 Active [...] 025 Encounters Encounter Location Date Provider Diagnosis [facility] [address] 03/04/2025 Korin Shipman Tinea unguium B35.1 ; [...] Reason: Provider Name:Korin yi, 06/02/2025 03:15:00 PM, [address] [place] [address], [phone], Procedure Notes * Category Sub-Category Detail Notes [...] use of a nail nipper and/or dremel-type thread grinder, to a more viable healthy nail plate [...] to maintain effectiveness in symptomatic relief - 69255 Progress Notes * Desi SABA EDOB: [birth year] (69 yo F)Acc No.[id number]:03/04/2025 Progress Note Patient:?Desi SABA Provider:?Korin Shipman DPM :1955???Age:69 Y???Sex:Female D ate:03/04/2025 Address:[address] [place], [place] [id number] Pcp:ESME Thomas Subjective: * Chief Complaints: * [...] use of a nail nipper and/or dremel-type thread grinder, to a more viable healthy nail plate [...] to maintain effectiveness in symptomatic relief - 65993.? * Procedure Codes:?41859 DEBRI DE NAIL, 6 OR MORE * [...] Shipman, DPM Date:? Generated for Printi ng/Fayasmanig/eTransmitting on:?03/18/2025 12:56 PM EDT History and Physical Notes * [...]
--- OUTSIDE RECORDS SUMMARY | 2025-03-18 12:56 | XMS_ITS ---
Author Organization [facility] [place] Address [address] [facility] [place] [address] Care Team Providers Care Sales Enablement Lead Name Role Phone Steven Lopez Primary Care Provider Unav ailable Korin Shipman Unavailable [phone] REASON FOR VISIT cx 10/28 Encounters Encounter Location Date Provider Diagnosis [facility] [place] [address] [facility] [place] [address] 10/27/2024 Korin Shipman Plan Of Treatment Next Appt Details Provider Name:Korin yi, 06/02/2025 03:15:00 PM, [address] [place], [address], Progress Notes * Desi SABA EDOB: [birth year] (69 yo F)Acc No.[id number]:10/27/2024 Patient:?Desi SABA :1955???Age:69 Y???Sex:Female Address:[address] [place], [address] * true * Date:? Generated for Printi ng/Faxing/eTransmitting on:?03/18/2025 12:56 PM EDT
== END 2025-03-18 11:26 | disposition home or self-care (01) ==
LOC: HO.MAMMO 11:25
PROVIDERS: PCP Nurse Practitioner Family; Visit Provider Nurse Practitioner Family
DX: Z12.31 Encounter for screening mammogram for malignant neoplasm of breast (principal)
CPT/HCPCS: 77063; 77067

== ENCOUNTER → 2025-03-18 11:30 | Outpatient (BNV) | payer OTHER, SELFPAY | PROVIDERS: PCP Nurse Practitioner Family; Visit Provider Internal Medicine | DX: Z12.31 Encounter for screening mammogram for malignant neoplasm of breast (principal) | CPT/HCPCS: 77063; 77067 ==

== ENCOUNTER 2025-04-19 15:13 | Outpatient (AMB) | payer OTHER, SELFPAY ==
--- NOTE | 2025-04-19 15:19 | A.OFFPC_ITS ---
Vital Signs 04/19/25 15:21 Height 5 ft 4 in Weight 184 lb BMI 31.6 BP 138/78 Blood Pressure Location Rt brachial Position Sitting Pulse 81 Pulse Source Pulse Oximeter Pulse Oximetry (%) 98 Oxygen Delivery Method Room Air Intake Visit Reasons: Discuss workers compensation examiner referral/overdue for PE Application Performance Engineer Required: No Accompanied by: Self / Same As Patient Allergies metronidazole [From FLAGYL] Allergy (Severe, Verified 04/19/25 15:21) ANAPHYLAXIS sulfamethoxazole [From Bactrim] Allergy (Severe, Verified 04/19/25 15:21) Palpitations trimethoprim [From Bactrim] Allergy (Severe, Verified 04/19/25 15:21) Palpitations sulfite [Sulfite] Allergy (Intermediate, Verified 04/19/25 15:21) BISULFITES-ITCHING IN MOUTH & THROAT,SHORTNESS OF BREATH phenylalanine [PHENYLALANINE] Allergy (Mild, Verified 04/19/25 15:21) UNKNOWN barber pepper [GREEN PEPPER] Allergy (Unknown, Verified 04/19/25 15:21) LIP SWELLING From FLAGYL Allergy (Severe, Uncoded 03/16/25 14:19) ANAPHYLAXIS bisulfites Allergy (Unknown, Uncoded 03/16/25 14:19) itching peppers Allergy (Unknown, Uncoded 03/16/25 14:19) Unknown Medication List - Last Reconciled 04/19/25 by EULOGIO Dean-ANA acetaminophen 1,000 mg PO Q6H PRN alendronate 70 mg PO QWEEK atomoxetine 25 mg PO DAILY bupropion HCl XL 150 mg PO QAM cholecalciferol (vitamin D3) 125 mcg PO DAILY diclofenac sodium 1% (Arthritis Pain (diclofenac)) 2 grams topical QID fluoxetine 60 mg PO DAILY lidocaine 5% 1 patch topical DAILY methimazole 5 mg PO DAILY naproxen 500 mg PO BID PRN 10 days vitamin B comp and C no.3 (B Complex Plus Vitamin C) 1 cap PO DAILY Tobacco use date assessed: 04/19/25 Fall risk assessment: 2 + Falls in past year Last assessed Fall Risk: 04/19/25 Dental Screening Dental Screen Date: 04/19/25 Did you have a dental visit in the last 12 months?: Yes Did you have a dental problem in the last 6 months where you did not have access to dental care?: No Was dental information given to patient?: Patient has dentist HPI Discuss workers compensation examiner referral/overdue for PE HPI Details Chief Complaint Follow-up consultation for thyroid nodules. History of Present Illness The patient is a 69-year-old female presenting with a follow-up for multinodular goiter and thyroid nodules. She has been previously managed by endocrinologists, with her last visit in March 2024 (dr. hutson). The patient had a history of being on Methimazole for about fifteen months (as of last year), noted during that time to be chemically euthyroid with a normal TSH and free T4 of 0.8. Imaging in 2019 showed multiple nodules, which were negative on biopsy (not all biopsied). The patient mentions tenderness in her thyroid area and occasional sore throats but denies dysphagia. The patient's health maintenance includes colon and mammogram screenings being current. A repeat ultrasound and further thyroid function tests have been planned to assess her current status, along with a referral to our endo team Social History Health Maintenance - Colon screening: Up to date - Mammogram: Up to date Review of Systems - Endocrine: Reports thyroid tenderness, denies dysphagia. - Throat: Reports occasional sore throat . - Respiratory: Denies shortness of breat h. - Cardiovascular: Denies chest pain. Physical Exam General: Cooperative, healthy appearing, comfortable, no acute distress and well developed Orientation: Patient oriented x3 Limitations: No limitations Head: Normal to inspection Ears: Hearing grossly normal bilaterally Nose: Normal external nose present Face and sinus: Normal facial exam Eyes: Appearance normal, both eyes and all related structures Neck: Normal visual inspection and Yes full ROM, nodular thyroid palpated, some tenderness reported Respiratory: Normal respiratory effort and able to speak in complete sentences. Clear to auscultation bilaterally Cardiovascular: Regular rate and rhythm. Normal S1 and S2 GI: Normal to inspection. Soft to palpation and nontender Skin: No rashes or lesions noted Neuro: Patient oriented x3 Extremities: Normal to inspection Results - Labs: - Tests: Previous biopsy of thyroid nodu les in 2019 was negative. Plan I am referring the patient to our endocrinology department for further management of her multinodular goiter and thyroid nodules due to insurance coverage constraints. A repeat ultrasound and laboratory investigations including free T4, free T3, and TSH levels, will be conducted to assess her current thyroid function. These steps will inform any subsequent decisions required for optimal management of her thyroid health. The patient's history of symptoms, along with the imaging, will guide any further need for interventions or surgical consultations based on updated assessments. Discussion Notes During the visit, I discussed with the patient the management and treatment options for her multinodular goiter and thyroid nodules. I explained the need for repeat thyroid function tests and an ultrasound to evaluate the nodules' status, given her symptom of tenderness and prior biopsy findings. The potential referral to a new workers compensation examiner was covered, considering previous constraints with insurance. We also reviewed the importance of regular follow-ups, and the patient is informed about the plan to monitor laboratory and imaging outcomes before opting for any additional interventions. Additionally, I ensured the patient understands the need for ongoing surveillance to prevent complications. Hx of b12 def, will recheck levels. Patient Instructions - Undergo the scheduled ultrasound and l ab tests for thyroid function. - Follow up with the workers compensation examiner as referred. - Monitor for any new or worsening sympt oms, and report them promptly. - Continue regular health screenings, in cluding colon and mammogram checks. - Return for a follow-up visit to [facility] test results and further management. [facility] History Hyperthyroidism Vitamin D deficiency Subclinical hyperthyroidism Multinodular thyroid Surgical History H/O colonoscopy Hx of eye surgery Hx laparoscopic cholecystectomy Hx of cataract removal with insertion of prosthetic lens Hx of rhinoplasty Hx of breast augmentation Hx of foot surgery Family History Father No problems noted. 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 occupational status: employed Current occupation: [employer] [place] Current occupational exposures/hazards: Yes Cognitive needs: No Hearing needs: No Vision needs: No Questionnaire PHQ-9 Over the last 2 weeks, how often have you been bothered by any of the following problems? 1. Little interest or pleasure in doing things: not at all 2. Feeling down, depressed, or hopeless: not at all 3. Trouble falling or staying asleep, or sleeping too much: not at all 4. Feeling tired or having little energy: not at all 5. Poor appetite or overeating: not at all 6. Feeling bad about yourself - or that you are a failure or have let yourself or your family down: not at all 7. Trouble concentrating on things, such as reading the newspaper or watching television: not at all 8. Moving or speaking so slowly that other people could have noticed. Or the opposite - being so fidgety or restless that you have been moving around a lot more than usual: not at all 9. Thoughts that you would be better off or of hurting yourself in some way: not at all Total score: 0 Depression Screening Interpretation: Negative Depression Screening Done: Yes 19905 - PHQ-9 Billing: Yes Source: Developed by Drs. Zander Aguila, Yuni Mcclure, Wilber Mays and colleagues, with an educational dino from [employer]. Thrive Questionnaire Date Thrive assessed: 04/19/25 I am a: Patient What is your living situation today?: I have a steady place to live Within the past 12 months, did the food you bought not last and you didn't have the money to get more?: Never true Within the past 12 months, did you worry whether your food would run out before you got money to buy more?: Never true Do you have trouble paying for medicines?: No Do you have trouble getting transportation to medical appointments?: No Do you have trouble paying your heating and electricity bill?: No Do you have trouble taking care of your child, family member or friend?: No Do you have trouble with day-to-day activities such as bathing, preparing meals, shopping, managing finances, etc.?: No Are you currently unemployed and looking for a job?: No Are you interested in more education?: No Please select the resources that you would like help with: None Currently or been in a relationship where the following occur: No concerns reported THRIVE Score: 0 AUDIT C Alcohol Use Questionnaire (AUDIT-C) 1. How often do you have a drink containing alcohol?: Never 3. How often do you have six or more drinks on one occasion?: Never Total Score: 0 Score Reviewed/Action Taken: Yes CRISSY-7 AMB Questionnaire CRISSY-7 Date CRISSY - 7 assessed: 04/19/25 Feeling nervous, anxious, or on edge: 1 = Several days Not being able to stop or control worryin = Not at all Worrying too much about different things: 0 = Not at all Trouble relaxin = Not at all Being so restless that it is hard to sit still: 0 = Not at all Becoming easily annoyed or irritable: 0 = Not at all Feeling afraid as if something awful might happen: 0 = Not at all Total CRISSY-7 score (0-4 normal; 5-9 mild; 10-14 moderate; 15-21 severe): 1 Source: Developed by Drs. Zander Aguila, Yuni Mcclure, Wilber Mays and colleagues, with an educational dino from [employer]. CRISSY-7 Assessment Billing CRISSY-7 Assessment Tool: CRISSY-7 Assessment 46540 Physical exam (Primary Care) Vital Signs: Last Vital Signs Pulse 81 04/19/25 15:21 BP 138/78 04/19/25 15:21 Pulse Ox 98 04/19/25 15:21 Oxygen Delivery Method Room Air 04/19/25 15:21 BMI result Body Mass Index 31.6 Tobacco/Smoking Status: Tobacco use Status Tobacco use date assessed 04/19/25 04/19/25 15:26 Patient Tobacco Use Status Former Tobacco user 04/19/25 15:20 e-Cigarette/Vaping Use Currently Using 04/19/25 15:20 PHQ-9: PHQ-9 Score PHQ-9: Total score 0 04/19/25 16:20 Depression Screening Interpretation: Negative Thrive Assessment: Date of Thrive Assessment Date Thrive assessed 04/19/25 04/19/25 15:26 Currently or been in a relationship where the following occur: No concerns reported Coding Level of Care Code Est Pt Level 3 (84530) Diagnoses Multinodular thyroid E04.2 B12 deficiency E53.8 Vitamin D deficiency E55.9 Additional Codes CRISSY-7 Assessment Billing - CRISSY-7 Assessment Tool: CRISSY-7 Assessment 06842 ([id number]) PHQ-9 - 42639 - PHQ-9 Billing: Yes ([id number]) Assessment & Plan Assessment & Plan (1) Multinodular thyroid: Code(s): E04.2 - Nontoxic multinodular goiter Category: Medical (2) B12 deficiency: Code(s): E53.8 - Deficiency of other specified B group vitamins Category: Medical (3) Vitamin D deficiency: Code(s): E55.9 - Vitamin D deficiency, unspecified Category: Medical Plan . Orders: Orders US thyroid Today E04.2 - Nontoxic multinodular goiter Complete Blood Count Auto Diff Today E04.2 - Nontoxic multinodular goiter Vitamin B12 and Folate Today E53.8 - Deficiency of other specified B group vitamins Parietal Cell Antibody Today E53.8 - Deficiency of other specified B group vitamins Vitamin D 25-OH Total Today E55.9 - Vitamin D deficiency, unspecified Comprehensive [place]. Panel Fast Today E04.2 - Nontoxic multinodular goiter TSH reflex Free T4 Today E04.2 - Nontoxic multinodular goiter UA CC w/rflx Micro + Cult Today E04.2 - Nontoxic multinodular goiter Lipid Panel Today E04.2 - Nontoxic multinodular goiter Intrinsic Factor Antibodies Today E53.8 - Deficiency of other specified B group vitamins Triiodothyronine T3 Free Today E04.2 - Nontoxic multinodular goiter Referrals Endocrinology Referral E04.2 - Nontoxic multinodular goiter
[2025-04-19 15:21] VITALS: BP 138/78; PULSE 81; O2SAT 98; BMI 31.6
--- OUTSIDE RECORDS SUMMARY | 2025-04-19 16:59 | XMS_ITS ---
[facility] Address [address] [facility] [place] [address] Care Team Providers Care Wholesale And Retail Merchant Name Role Phone Steven Lopez Primary Care Provider Unav ailable Korin Shipman Unavailable [phone] Encounters Encounter Location Date Provider Diagnosis [facility] [address] [place] [address] 10/28/2024 Korin Shipman Plan Of Treatment Next Appt Details Provider Name:Korin yi, 06/02/2025 03:15:00 PM, [address] [place], [address], Progress Notes * Desi SABA EDOB: [birth year] (69 yo F)Acc No.[id number]:10/28/2024 Progress Note Patient:?Desi SABA Provider:?Korin Shipman DPM :1955???Age:69 Y???Sex:Female D ate:10/28/2024 Address: [id number] Pcp:ESME Thomas Subjective: * Chief Complaints: * ??? * Medical History:? Objective: * Vitals:? Assessment: Plan: * Treatment: * Images: * The named appointment provid er may or may not be the originator of this progress note, and it is not deemed complete until electronically signed by the appointment provider. Sign off status: Pending * Provider:Ladi Shipman DPM Date:? Generated for Liseth mckeon/Rigoberto/Mirtha on:?04/19/2025 04:59 PM EDT
== END 2025-04-19 17:00 | disposition home or self-care (01) ==
LOC: HO.HMCC 15:13
PROVIDERS: PCP Nurse Practitioner Family; Visit Provider Nurse Practitioner Family
DX: E04.2 Nontoxic multinodular goiter (principal); E53.8 Deficiency of other specified B group vitamins; E55.9 Vitamin D deficiency, unspecified

== ENCOUNTER → 2025-04-19 15:13 | Outpatient (BNVA) | payer OTHER, SELFPAY | PROVIDERS: PCP Nurse Practitioner Family; Visit Provider Nurse Practitioner Family | DX: E04.2 Nontoxic multinodular goiter (principal); E53.8 Deficiency of other specified B group vitamins; E55.9 Vitamin D deficiency, unspecified; Z13.31 Encounter for screening for depression; Z13.30 Encounter for screening examination for mental health and behavioral disorders, unspecified | CPT/HCPCS: 96127 ==

== ENCOUNTER 2025-04-30 07:33 | Outpatient (REF) | payer OTHER, SELFPAY ==
--- OUTSIDE RECORDS SUMMARY | 2024-10-28 05:00 | XMS_ITS ---
Author Organization [facility] Address [address] [facility] [place] [address] Care Team Providers Care Financial Investigator Name Role Phone Steven Lopez Primary Care Provider Unav ailable Korin Shipman Unavailable [phone] Encounters Encounter Location Date Provider Diagnosis [facility] [address] [place] [address] 10/28/2024 Korin Shipman Plan Of Treatment Next Appt Details Provider Name:Korin yi, 06/02/2025 03:15:00 PM, [address] [place], [address], Progress Notes * Desi SABA EDOB: [birth year] (69 yo F)Acc No.[id number]:10/28/2024 Progress Note Patient: Desi PINEDA Provider: Jeannette Shipman DPM :1955 A ge:69 Y S ex:Female Date:10/28/2024 Address: [address] [id number] Pcp:ESME Thomas Subjective: * Chief Complaints: * * Medical History: Objective: * Vitals: Assessment: Plan: * Treatment: * Images: * The named appointment provid er may or may not be the originator of this progress note, and it is not deemed complete until electronically signed by the appointment provider. Sign off status: Pending * Provider: Jeannette Shipman DPM Date: 1 12/29/2023 Generated for Liseth mckeon/Sera on: 0 04/30/2025 07:36 AM EDT
[2025-04-30 07:48] LABS: MANUAL DIFF FLAG NO
[2025-04-30 08:00] LABS: Basophils Percent Auto 0.4 % (0-2); Eosinophils Absolute Auto 0.1 X10*3/uL (0.0-0.4); Eosinophils Percent Auto 1.8 % (0-4); Hematocrit 36.8 % (37.0-47.0); Hemoglobin 11.9 g/dl (12.0-16.0); Imm Gran Abs Auto 0.06 X10*3/uL (0.00-0.03); Imm Gran Pct Auto 0.8 % (0.0-0.4); Lymphocytes Absolute Auto 2.1 X10*3/uL (1.2-4.9); Lymphocytes Percent Auto 26.9 % (20-40); Mean Corpuscular HGB Conc 32.3 g/dl (31.0-35.0); Mean Corpuscular Hemoglobin 28.5 pg (27.0-33.0); Mean Corpuscular Volume 88.2 fL (80.0-98.0); Mean Platelet Volume 9.1 fL (9.4-12.3); Monocytes Absolute Auto 0.8 X10*3/uL (0.1-1.2); Monocytes Percent Auto 9.7 % (2-11); Neutrophils Absolute Auto 4.8 x10*3/uL (2.0-8.3); Neutrophils Percent Auto 60.4 % (45-73); Platelet Count 278 X10*3/uL (160-400); Red Blood Count 4.17 X10*6/uL (4.20-5.50); Red Cell Distribution Width 14.3 % (11.0-16.0); White Blood Count 7.9 X10*3/uL (4.8-10.8)
[2025-04-30 08:28] LABS: Alanine Aminotransferase 25 U/L (0-31); Albumin Level 4.3 g/dL (3.5-5.0); Alkaline Phosphatase 70 U/L (39-117); Anion Gap 11 (12-20); Aspartate Amino Transferase 26 U/L (5-31); Bilirubin Total 0.4 mg/dL (0.0-1.0); Blood Urea Nitrogen 18 mg/dL (9-16); Calcium 9.2 mg/dL (8.4-10.2); Carbon Dioxide 28 mmol/L (22-29); Chloride 105 mmol/L (96-108); Cholesterol 178 mg/dL (<200); Estimated Glomerular Filt Rate > 60; Glucose Fasting 81 mg/dL (60-99); HDL Cholesterol 86 mg/dL (>40); LDL Cholesterol Calculated 82 mg/dL (<100); Potassium 4.2 mmol/L (3.3-5.1); Sodium 140 mmol/L (135-145); Total Protein 6.4 g/dL (6.5-8.0); Triglycerides 52 mg/dL (<150)
[2025-04-30 08:45] LABS: TSH reflex Free T4 1.28 uIU/mL (0.32-4.0); Vitamin D 25-OH Total 65.2 ng/mL (>30)
[2025-04-30 08:56] LABS: Appearance Urine Clear; Color Urine Dark Yellow; Glucose Urine UA Negative (Negative); Leukocyte Esterase Urine Trace (Negative); Nitrite Urine Negative (Negative); PH 5.5 (5.0-9.0); Specific Gravity - Urine 1.025 (1.005-1.025); UMIC TRIGGER UACC YES; Urine Blood Negative (Negative); Urine Ketones Trace mg/dL (Negative); Urine Protein Negative (Neg-Trace)
[2025-04-30 08:58] LABS: Folate 10.6 ng/mL (> or = 4.0); Vitamin B12 343 pg/mL (200-900)
[2025-04-30 09:02] LABS: Bacteria Urine None Seen (None Seen); Hyaline Casts Urine 0-2 /LPF (0-2); RBC Urine 0-2 /HPF (0-2); Squamous Epithelial Cell Urine 0-2 /HPF (0-2); WBC Urine 0-5 /HPF (0-5)
[2025-05-02 01:58] LABS: Triiodothyronine T3 Free 2.7 pg/mL (2.3-4.2)
[2025-05-04 17:49] LABS: Parietal Cell Antibody <=20.0 Unit (<=20.0)
[2025-05-04 18:29] LABS: Intrinsic Factor Antibodies Negative (Negative)
== END 2025-04-30 07:34 | disposition home or self-care (01) ==
LOC: HO.LAB 07:33
PROVIDERS: PCP Nurse Practitioner Family; Visit Provider Nurse Practitioner Family
DX: E53.8 Deficiency of other specified B group vitamins (principal); E55.9 Vitamin D deficiency, unspecified; E04.2 Nontoxic multinodular goiter
CPT/HCPCS: 36415; 80053; 80061; 81001; 82306; 82607; 82746; 83516; 84443; 84481; 85025; 86340

== ENCOUNTER 2025-06-03 14:16 | Outpatient (AMB) | payer OTHER, SELFPAY ==
[2025-06-03 14:18] VITALS: BP 122/64; PULSE 85; O2SAT 97; BMI 31.3
--- NOTE | 2025-06-03 14:18 | MHC.OFFVIS ---
Vital Signs 06/03/25 14:18 Height 5 ft 4 in Weight 182 lb 1.629 oz BMI 31.3 BP 122/64 Blood Pressure Location Lt brachial Position Sitting Pulse 85 Pulse Source Pulse Oximeter Pulse Oximetry (%) 97 Oxygen Delivery Method Room Air Intake Visit Reasons: Nontoxic multinodular goiter Intake Note: New patient present today for Nontoxic multinodular goiter. [place] Required: No Accompanied by: Self / Same As Patient Allergies metronidazole (From FLAGYL) Allergy (Severe, Verified 06/03/25 14:23) ANAPHYLAXIS sulfamethoxazole (From Bactrim) Allergy (Severe, Verified 06/03/25 14:23) Palpitations trimethoprim (From Bactrim) Allergy (Severe, Verified 06/03/25 14:23) Palpitations sulfite (Sulfite) Allergy (Intermediate, Verified 06/03/25 14:23) BISULFITES-ITCHING IN MOUTH & THROAT,SHORTNESS OF BREATH phenylalanine (PHENYLALANINE) Allergy (Mild, Verified 06/03/25 14:23) UNKNOWN barber pepper (GREEN PEPPER) Allergy (Unknown, Verified 06/03/25 14:23) LIP SWELLING From FLAGYL Allergy (Severe, Uncoded 06/03/25 14:23) ANAPHYLAXIS bisulfites Allergy (Unknown, Uncoded 06/03/25 14:23) itching peppers Allergy (Unknown, Uncoded 06/03/25 14:23) Unknown Medication List - Last Reconciled 06/03/25 by Madeleine Dunbar MD acetaminophen 1,000 mg PO Q6H PRN alendronate 70 mg PO QWEEK atomoxetine 25 mg PO DAILY bupropion HCl XL 150 mg PO QAM cholecalciferol (vitamin D3) 125 mcg PO DAILY diclofenac sodium 1% (Arthritis Pain (diclofenac)) 2 grams topical QID fluoxetine 60 mg PO DAILY lidocaine 5% 1 patch topical DAILY methimazole 5 mg PO DAILY naproxen 500 mg PO BID PRN 10 days vitamin B comp and C no.3 (B Complex Plus Vitamin C) 1 cap PO DAILY HPI Comments Details: 69 years old female coming in today for initial evaluation of toxic multinodular goiter. HPI September 2018: CT head and neck for paresthesias revealed a multinodular thyroid February 2019: Ultrasound thyroid showed multiple large bilateral thyroid nodules. A dominant 2 cm right superior thyroid nodule, a dominant left mid lobe 2.2 cm nodule. Multiple additional nodules. 2019: Labs consistent with subclinical hyperthyroidism: Thyroid uptake and scan revealed normal uptake with a heterogenous appearance. Left superior 0.5 cm and right lower pole 1 cm nodules appeared to be the hard toxic nodules. The remainder of the gland was poorly visualized. 09/01/2019: Started on methimazole 5 mg daily 09/10/2019: Status post FNA biopsy of a left midpole 2.1 cm nodule, a right midpole 2.3 cm nodule and her right lower pole 2.4 cm nodule all with benign cytology. There was some inconsistency with the measurements of the FNA ultrasound as opposed to her official thyroid ultrasound. Then she was complaining of compressive symptoms and she was referred for surgical evaluation. However she never went for it and decided not to pursue total thyroidectomy. Then she established care at [facility] with the endocrinology. Was seeing Dr. Mariee, last seen March 2024. She continues on methimazole 5 mg daily. Apparently both radioactive iodine ablation and surgical treatment has been discussed with her previously, but she is not interested. She does not have any significant compressive symptoms. Ultrasound thyroid last done December 2023 12/25/2023, shows a right superior 1.9 cm nodule which is TR 5 category but only some increase in size which is not significant. Probably this was the 1 that was biopsied before in 2018 and was benign? A left midpole 3.6 cm nodule also only shows minimal growth in size, TR 3 category, question whether this is a toxic nodule as previously there was some activity in the left upper pole nodule but no other nodules seen in the left upper pole. Left mid inferior 1.6 cm TR 4 category nodule which is also somewhat increased in size, questionable toxic nodule. Unclear whether these left midpole nodules were biopsied before or not. Risk of malignancy for toxic nodule is generally lower but not 0. Other apparently new left inferior 1.4 cm TR 4 and 1.2 cm nodule. Physical exam General: sitting comfortably in no acute distress HEENT: normocephalic/atraumatic, Neck: supple, palpable 1-2 cm left-sided nodule Cardiac: normal heart sounds Pulm: normal breath sounds B/L, no added breath sounds Abd: not distended, no tenderness Extremities: no edema, no signs of myxedema Laboratory Tests 04/30/25 07:46 TSH 1.28 Free T3 2.7 US THYROID 12/25/23 CLINICAL INFORMATION: Multinodular goiter. Prior benign biopsy 09/10/2019 nodules in the left mid lobe, right middle lobe and right lower lobe. COMPARISON: Ultrasound soft tissue head/neck thyroid dated 10/16/2021 and 03/28/2021. TECHNIQUE: Linear transducer grayscale and color Doppler examination with attention to the region of the thyroid. FINDINGS: SIZE: Measurements of the thyroid lobes and nodules are given in sagittal, anteroposterior and transverse dimensions respectively. Right Thyroid Lobe: 6.0 x 3.2 x 3.0 cm, volume 30.1 mL. Previously 5.8 x 3.1 x 2.8 cm, volume 26.2 mL. Parenchyma: The gland echotexture is heterogeneous. Thyroid vascularity is increased. Left Thyroid Lobe: 5.9 x 2.8 x 3.0 cm, volume 25.9 mL. Previously 5.2 x 3.1 x 2.6 cm, volume 22.4 mL. Parenchyma: The gland echotexture is heterogeneous. Thyroid vascularity is increased. Isthmus: 0.6 cm in maximum AP dimension. Previously 0.6 cm. Estimated total number of nodules greater than or equal to 1 cm: More than 10. Operations Section Manager nodules are described as follows: 1. Location: Right superior. Size: 1.9 x 1.6 x 1.7 cm, volume 2.60 mL. Previously: 1.5 x 1.4 x 1.5 cm, volume 1.64 mL. Nodule characteristics: Composition: Mixed cystic and solid (1). Echogenicity: Cannot be determined (1). Shape: Not taller than wide (0). Margins: Smooth (0). Echogenic Foci: Peripheral calcifications (2). Punctate echogenic foci (3). ACR TI-RADS total points: 7 Previous: 5 ACR TI-RADS category: 5 Previous: 4 Significant change in size (>/= 20% in 2 dimensions and minimal increase of 2 mm or 50% or greater increase in volume): Yes Change in features: No Change in ACR TI-RADS risk category: Yes 2. Location: Left mid. Size: 3.6 x 2.0 x 2.7 cm, volume 10.3 mL. Previously: 3.1 x 2.3 x 1.7 cm, volume 6.3 mL. Nodule characteristics: Composition: Solid (2). Echogenicity: Isoechoic (1). Shape: Not taller than wide (0). Margins: Irregular (2). Echogenic Foci: None (0). ACR TI-RADS total points: 5 Previous: 3 ACR TI-RADS category: 4 Previous: 3 Significant change in size (>/= 20% in 2 dimensions and minimal increase of 2 mm or 50% or greater increase in volume): Yes Change in features: No Change in ACR TI-RADS risk category: Yes 3. Location: Left medial inferior. Size: 1.6 x 1.0 x 1.5 cm, volume 1.25 mL. Previously: 1.6 x 0.8 x 1.2 cm, volume 0.8 mL. Nodule characteristics: Composition: Solid (2). Echogenicity: Hypoechoic (2). Shape: Not taller than wide (0). Margins: Smooth (0). Echogenic Foci: Punctate echogenic foci (3). ACR TI-RADS total points: 7 Previous: 4 ACR TI-RADS category: 5 Previous: 4 Significant change in size (>/= 20% in 2 dimensions and minimal increase of 2 mm or 50% or greater increase in volume): Yes Change in features: No Change in ACR TI-RADS risk category: Yes 4. Location: Left inferior medial. Size: 1.4 x 1.0 x 1.3 cm, volume 0.95 mL. Previously: New since the previous study. Nodule characteristics: Composition: Solid (2). Echogenicity: Hypoechoic (2). Shape: Not taller than wide (0). Margins: Smooth (0). Echogenic Foci: None (0). ACR TI-RADS total points: 4 ACR TI-RADS category: 4 5. Location: Left medial inferior. Size: 1.2 x 0.9 x 1.1 cm, volume 0.63 mL. Previously: New since the previous study. Nodule characteristics: Composition: Solid (2). Echogenicity: Hypoechoic (2). Shape: Not taller than wide (0). Margins: Smooth (0). Echogenic Foci: Macrocalcifications (1). ACR TI-RADS total points: 5 ACR TI-RADS category: 4 NODES: No lymphadenopathy is seen in the tissue surrounding the thyroid gland. US/US thyroid IMPRESSION: 1. Enlarged heterogeneous thyroid gland with multiple nodules. 2. 1.9 cm nodule in the upper pole of the right lobe, TR 5, fulfills the criteria for FNA. Fine-needle aspiration is recommended, if not already performed. 3. 3.6 cm nodule in the mid left lobe, TR 3, fulfills the criteria for FNA. Fine-needle aspiration is recommended, if not already performed. 4. 1.6 cm nodule in the left medial lower pole, TR 4, fulfills the criteria for FNA. Fine-needle aspiration is recommended, if not already performed. 5. Routine annual sonographic follow-up of the 2 nodules in the lower pole of the left lobe is recommended. Thyroid US: 03/03/19 Right Thyroid Lobe: 6.3 x 2.6 x 2.2 cm, volume 21.6 mL. Parenchyma: The gland echotexture is heterogeneous. Thyroid vascularity is normal. Left Thyroid Lobe: 5.1 x 2.3 x 2.1 cm, volume 13.1 mL. Parenchyma: The gland echotexture is heterogeneous. Thyroid vascularity is normal. Isthmus: 0.3 cm in maximum AP dimension. RIGHT THYROID LOBE: There are 3 nodules seen. 1. Location: Superior. Size: 2.0 x 1.6 x 1.4 cm. Nodule characteristics: Heterogeneous, smooth margins, calcification and positive intranodular flow. 2. Location: Middle. Size: 0.8 x 0.8 x 0.8 cm. Nodule characteristics: Hypoechoic and complex cystic, smooth margins, question calcification and no intranodular flow. 3. Location: Inferior. Size: 1.0 x 1.0 x 0.9 cm. Nodule characteristics: Hypoechoic and heterogeneous, smooth margin, no calcification and minimal peripheral flow.. ISTHMUS: No nodules. LEFT THYROID LOBE: There are 4 nodules seen. 1. Location: Inferior. Size: 0.9 x 0.7 x 0.7 cm. Nodule characteristics: Hypoechoic and slightly heterogeneous, smooth margins, no calcification and peripheral flow. 2. Location: Middle. Size: 2.2 x 1.6 x 1.6 cm. Nodule characteristics: Hypoechoic and slightly heterogeneous, smooth margins with hypoechoic rind, no calcification and intranodular flow. 3. Location: Middle. Size: 1.0 x 0.6 x 0.8 cm. Nodule characteristics: Hypoechoic and heterogeneous, smooth margins, no calcification and minimal peripheral flow. 4. Location: Superior. Size: 0.5 x 0.4 x 0.4 cm. Nodule characteristics: Hypoechoic, smooth margins, no calcification and no intranodular flow. NODES: No lymphadenopathy is seen in the tissue surrounding the thyroid gland. Thyroid Uptake and Scan: 03/23/19 FINDINGS: The uptake is 11.2% at 4 hours and 23.8% at 24 hours. The radioiodine uptake is normal. The radiopertechnetate thyroid scintigram shows the thyroid gland to be markedly heterogeneous. There is an ovoid shaped focus of markedly increased activity present in the upper half of the left lobe and a smaller ovoid shaped focus is present medially in the lower pole of the right lobe. There is only faint visualization of the remainder the right lobe and the lower pole the left lobe is not well visualized. A single anterior radioiodine image obtained at the time of the 24-hour uptake measurement is similar 2 the radio pertechnetate image but does not delineate the detail as well. PENDING SALE TO [facility] Medical History Hyperthyroidism Vitamin D deficiency Subclinical hyperthyroidism Multinodular thyroid Surgical History H/O colonoscopy Hx of eye surgery Hx laparoscopic cholecystectomy Hx of cataract removal with insertion of prosthetic lens Hx of rhinoplasty Hx of breast augmentation Hx of foot surgery Family History Father No problems noted. 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: Yes Cognitive needs: No Hearing needs: No Vision needs: No Physical Exam Vital Signs: Last Vital Signs Pulse 85 06/03/25 14:18 BP 122/64 06/03/25 14:18 Pulse Ox 97 06/03/25 14:18 Oxygen Delivery Method Room Air 06/03/25 14:18 BMI result Body Mass Index 31.3 Assessment & Plan Assessment & Plan (1) Thyrotoxicosis with toxic mutinodular thyroid goiter: Code(s): E05.20 - Thyrotoxicosis with toxic multinodular goiter without thyrotoxic crisis or storm Category: Medical Plan: 69-year-old female coming in today for initial evaluation of toxic multinodular goiter. Diagnosed in 2018, with multiple thyroid nodules, at that time she was also found to have subclinical hyperthyroidism. Thyroid uptake and scan in March 2019 showed heterogenous activity with increased uptake in the right inferior and left superior/mid lobe. In August 2019 she underwent biopsy of her right mid lobe 2.3 cm, right inferior 2.4 cm and left mid lobe 2.1 cm thyroid nodules which were benign. Subsequently she had some of the surveillance ultrasounds, in 2020 and then more recently in December of 2023. She had been complaining intermittently of some compressive symptoms would not too bothersome, plus given underlying hyperthyroidism, it was recommended for her to have surgical evaluation however patient was previously not willing to do that. Radioactive iodine ablation has also been discussed with her. 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 At this time she is feeling ready for surgical evaluation. I did discuss with her that I would recommend total thyroidectomy in her case given multiple bilateral nodules, plus underlying hyperthyroidism requiring methimazole, which would render her hypothyroid independent on levothyroxine for the rest of her life. Patient verbalized understanding. Most recent thyroid ultrasound from December 2023Ultrasound thyroid last done December 2023 12/25/2023, shows a right superior 1.9 cm nodule which is TR 5 category but only some increase in size which is not significant. Probably this was the 1 that was biopsied before in 2019 and was benign? A left midpole 3.6 cm nodule also only shows minimal growth in size, TR 3 category, question whether this is a toxic nodule as previously there was some activity in the left upper pole nodule but no other nodules seen in the left upper pole. Left mid inferior 1.6 cm TR 4 category nodule which is also somewhat increased in size, questionable toxic nodule. Unclear whether these left midpole nodules were biopsied before or not. Risk of malignancy for toxic nodule is generally lower but not 0. Other apparently new left inferior 1.4 cm TR 4 and 1.2 cm nodule. At this time I discussed with her I would like to biopsy the left mid 3.6 cm and the left lower 1.4 cm nodules. Once we have biopsy results, we can then proceed with surgical evaluation. At this time she can continue methimazole 5 mg daily. Most recent blood work from April 2025 showed normal thyroid blood work. Plan: -continue methimazole 5 mg daily -scheduled for FNA of the left mid lobe 3.6 cm in the left lower lobe 1.4 cm nodules and a follow up 2 weeks after to discuss results -once we have biopsy results we will refer her to Dr. Birgit Ralph for total thyroidectomy at [facility] Plan I spent 45 minutes in reviewing the record, seeing the patient and documenting in the medical record. Orders: Orders US biopsy thyroid Today E05.20 - Thyrotoxicosis with toxic multinodular goiter without thyrotoxic crisis or storm Medications: Refilled methimazole 5 mg PO DAILY 90 tabs 2RF Coding Level of Care Code New Pt Level 4 (62167) Diagnoses Thyrotoxicosis with toxic mutinodular thyroid goiter E05.20 Time Spent (min) 45
--- OUTSIDE RECORDS SUMMARY | 2025-06-03 14:20 | XMS_ITS | Encounter Summary ---
Author Organization [facility] Address [address] [place] [id number] Phone Care Team Providers Care Program Manufacturing Leader Name Role Phone DrummondDesi nichole Ann JOB COACH/JOB DEVELOPER Unavailable [phone] Montserrat Zhong NET MAKING SUPERVISOR Unavailable + [phone] Stephanie Hahn JOB COACH/JOB DEVELOPER Primary Care Provider + Encounter Details Date Type Department Care Team (Late st Contact Info) Description 04/14/2024 Procedure Pass [facility] [address] [place] [address] Social History Tobacco Use Types Packs/Day Years Used Date Smoking Tobacco: Former Cigarettes 1 30 11 968 1987 Smokeless Tobacco: Never Alcohol Use Standard Drinks/Week Comments No 0 (1 standard drink = 0.6 oz pur e alcohol) Education Answer Date Recorded Are you interested in more education? Not on paradise e 03/08/2023 Are you concerned about learning? Not on file 03/08/2023 No 03/08/2023 No 03/08/2023 Digital Access Answer Date Recorded No 04/04/2023 No 04/04/2023 Reliable internet access at home? Not on file 04/04/2023 Device with a working camera? Not on file Comments Unknown Sex and Gender Information Value Date Recorded Sex Assigned at Not on file Legal Sex Female 9:56 PM EDT Gender Identity Not on file Sexual Orientation Not on file documented as of this encounter Plan of Treatment Not on file documented as of this encounter Visit Diagnoses Not on filedocumented in this encounter Care Teams Program Manufacturing Leader Relationship Specialty Start Date End Date Stephanie Hahn, JOB COACH/JOB DEVELOPER [address] [facility] [place] [address] [email or web address] PCP - General Nurse Practitioner 04/04/23 Desi Drummond NP [address] [place] [address] [place] [phone] Historical LMR Provider 08/27/17 Montserrat Zhong, JACKSON [facility] [address] [place] [phone] jo Historical LMR Provider 08/27/17 documented as of this encounter Additional Source Comments The information contained in this document represents components of the legal health record. It is not the complete legal health record.[facility]
--- OUTSIDE RECORDS SUMMARY | 2025-06-03 14:21 | XMS_ITS | Patient Health Record ---
Author Organization [facility] Address [address] [place] [address] Care Team Providers Care Automatic Oven Operator Name Role Phone MD ANIVAL PINEDO Primary Care Provider Unavail able Malcom Ni Jr Unavailable [phone] Allergies Allergen (clinical drug ingredient) Drug/Non Drug Allergy documented on EMR Reaction Allergy Type Onset Date Status metronidazole Flagyl Unknown Drug Allergy Act leena sodium bisulfite bisulfites (uncoded) Unknown Allergy Active Reason For Referral No Information Medications Medication SIG (Take, Route, Fr equency, Duration) Notes Start Date End Date Status Neurontin 100 MG Orally Act leena Wellbutrin XL 150 MG 1 tablet in the mor julee Orally Once a day Active Lexapro 20 MG 0.5 tablet Orally Once a day Active ZyrTEC Allergy 10 MG 1 tablet Orally Once a day Active KlonoPIN 0.5 MG 1 tablet Orally Twice a day Active Social History Tobacco Use: Social History Observation Description Date Details (start date - stop date) Former Smoker NA - NA Tobacco Use/Smoking Question Answer Notes Patient is a former smoker How long has it been since you last smoked? > 10 years Alcohol Screen Question Answer Notes Did you have a drink containing alcohol in the p ast year? No Points 0 Interpretation Negative Problems Problem Type SNOMED Code ICD Code Onset Dates Problem Status W/U Status Risk Notes Problem [id number] Colon cancer screening (Z12.11) Active confirmed Problem [id number] Encounter for other preprocedural examination (Z01.818) Active confirmed Plan Of Treatment Future Test Test Name Order Date COLONOSCOPY 07/24/2017 Insurance Providers Payer Name Payer Address Payer Phone Subscriber Number Group Number Insured Name Patient Relationship to Insured Coverage Start Date Coverage End Date [facility] [address] [facility] [place], [place] [phone] [id number] MARIUM PRADO Self - patient is the insured Medical (General) History Medical History History ICD Code essential tremor depression/anxiety Surgical History Surgery Date(Month/Year) breast augmentation 1979 ovarian surgery 1989 triple arthrodesis tyler. feet surgery 196 5 and 1967 retinal surgery on right eye cholecystectomy
--- OUTSIDE RECORDS SUMMARY | 2025-06-03 14:21 | XMS_ITS | Patient Health Record ---
Author Organization [facility] Address [address] [place] [address] Care Team Providers Care Curve Saw Operator Name Role Phone Steven Lopez Primary Care Provider Unav ailable Korin Shipman Unavailable [phone] Allergies Allergen (clinical drug ingredient) Drug/Non Drug Allergy documented on EMR Reaction Allergy Type Onset Date Status sodium bisulfite bisulfites (uncoded) anaphylaxis Allergy Active Reason For Referral No Information Medications Medication SIG (Take, Route, Frequency, Duration) Notes Start Date End Date Status Atomoxetine HCl 25 MG 1 capsule Orally O nce a day Active ASO Ankle/Foot Stablizing AFO As directed Wear Daily; Duration: as needed 06/02/2025 Active Lurasidone HCl 20 MG 1 tablet in the lazaro julee with food Orally Once a day Active FLUoxetine HCl 20 MG 1 tablet Orally Onc e a day; Duration: 30 day(s) Active buPROPion HCl ER (XL) 150 MG 1 tablet in the morning Orally Once a day; Duration: 30 day(s) Active methIMAzole 5 MG 1 tablet Orally Once a day; Duration: 30 day(s) Active Tylenol Active Piroxicam 20 MG TAKE 1 CAPSULE BY [facility] EVERY DAY WITH FOOD; Duration: 30 Active Feldene 20 MG 1 capsule with food Orally Once a day; Duration: 30 Not-Taking Vitamin D3 Active Gabapentin 100 MG 1 capsule Orally bid Not-Taking Immunizations Vaccine Route Administration Date Status Comme nts Influenza Unknown 07/12/2024 Administered COVID-19 Pfizer BioNTech Vaccine Unknown 11/11/2020 Administered [...] Problem Status W/U Status Risk Notes Problem Acquired hammer toe of lesser toe of left foot ([id number] 3) Other hammer toe(s) (acquired), left foot (M20.42) Active confirmed Problem Localized, primary osteoarthritis of the ankle and/or foot (614851254) Osteoarthritis of right ankle or foot (M19.071) Active confirmed Vital Signs Blood pressure diastolic 70 mm Hg 06/02/2025 Height 5ft4in in 06/02/2025 Blood pressure systolic 122 mm Hg 06/02/2025 Weight 182 lbs 06/02/2025 BMI 31.24 kg/m2 06/02/2025 Encounters Encounter Location Date Provider Diagnosis [facility] [address] [place] [address] 03/04/2025 Korin Perica Tinea unguium B35.1 ; Other hammer toe(s) (acquired), left foot M20.42 ; Pain in right toe(s) M79.674 and Pain in left toe(s) M79.675 [facility] [address] 06/02/2025 Korin Perica Tinea unguium B35.1 ; Osteoarthritis of right ankle or foot M19.071 ; Pain in right toe(s) M79.674 ; Pain in left toe(s) M79.675 ; Arthralgia of right ankle M25.571 ; Flat foot [pes planus] (acquired), right foot M21.41 and Flat foot [pes planus] (acquired), left foot M21.[address] [address] 10/27/2024 Korin Shipman Assessments Encounter Date Diagnosis (ICD Code) Assessment Notes Treatment Notes Treatment Clinical Notes Section Notes 03/04/2025 Tinea unguium (ICD-10 - B35.1) 03/04/2025 Other hammer toe(s) (acquired), left foot (ICD-10 - M20.42) 06/02/2025 Tinea unguium (ICD-10 - B35.1) 06/02/2025 Osteoarthritis of right ankle or foot (ICD-10 - M19.071) 06/02/2025 Pain in right toe(s) (ICD-10 - M79.674) 03/04/2025 Pain in right toe(s) (ICD-10 - M79.674) 03/04/2025 Pain in left toe(s) (ICD-10 - M79.675) 06/02/2025 Pain in left toe(s) (ICD-10 - M79.675) 06/02/2025 Arthralgia of right ankle (ICD-10 - M25.571) 06/02/2025 Flat foot [pes planus] (acquired), right foot (ICD-10 - M21.41) 06/02/2025 Flat foot [pes planus] (acquired), left foot (ICD-10 - M21.42) Plan Of Treatment Pending Test Test Name Order Date X ray : Foot, left 3V 03/14/2021 Next Appt Details Provider Name:Kroin yi, 09/01/2025 10:00:00 AM, [address] [place], [address], Insurance Providers Payer Name Payer Address Payer Phone Subscriber Number Group Number Insured Name Patient Relationship to Insured Coverage Start Date Coverage End Date Blue Benefits [address] [address] [place] [address] [id number] Desi Saba Self - patient is the insured Medical (General) History Medical History History ICD Code Anxiety Arthritis Back,Hip,and Knee pain Broken bones Depression Gall bladder problems Numbness Psychiatric disorder thyroid Measles Mumps Chicken pox Joint implants/screws TMJ essential tremors bilateral Knee Pain - Right Surgical History Surgery Date(Month/Year) triple arthrodesis 1966 gallbladder 1995 rhinoplasty 1972 eye vitrectomy 2012
== END 2025-06-03 15:32 | disposition home or self-care (01) ==
LOC: HO.ENCR 14:17
PROVIDERS: PCP Nurse Practitioner Family; Visit Provider Student in an Organized Health Care Education/Training Program
DX: E05.20 Thyrotoxicosis with toxic multinodular goiter without thyrotoxic crisis or storm (principal)
CPT/HCPCS: 99204

== ENCOUNTER 2025-06-23 08:44 | Outpatient (REF) | payer OTHER, SELFPAY ==
--- OUTSIDE RECORDS SUMMARY | 2025-06-23 09:00 | XMS_ITS | Patient Health Record ---
Author Organization [facility] [place] Address [address] [place] [address] Care Team Providers Care Clinical Data Manager Name Role Phone Steven Lopez Primary Care Provider Unav ailable Korin Shipman Unavailable [phone] Allergies Allergen (clinical drug ingredient) Drug/Non Drug [...] Piroxicam 20 MG TAKE 1 CAPSULE BY [facility] EVERY DAY WITH FOOD; Duration: 30 Active [...] toe of lesser toe of left foot (4156839842719378 3) Other hammer toe(s) (acquired), left foot (M20.42) Active confirmed Problem Localized, primary osteoarthritis of the ankle and/or foot (107431694) Osteoarthritis of right ankle or foot (M19.071) Active confirmed Vital Signs Blood pressure diastolic 70 mm Hg 06/02/2025 Height 5ft4in in 06/02/2025 Blood pressure systolic 122 mm Hg 06/02/2025 Weight 182 lbs 06/02/2025 BMI 31.24 kg/m2 06/02/2025 Encounters Encounter Location Date Provider Diagnosis [facility] [address] [place] [address] 03/04/2025 Korin Perica Tinea unguium B35.1 ; Other hammer toe(s) (acquired), left foot M20.42 ; Pain in right toe(s) M79.674 and Pain in left toe(s) M79.675 [facility] [address] 06/02/2025 Korin Perica Tinea unguium B35.1 ; Osteoarthritis of right ankle or foot M19.071 ; Pain in right toe(s) M79.674 ; Pain in left toe(s) M79.675 ; Arthralgia of right ankle M25.571 ; Flat foot [pes planus] (acquired), right foot M21.41 and Flat foot [pes planus] (acquired), left foot M21.[address] [address] 10/27/2024 Korin Shipman Assessments Encounter Date Diagnosis [...] 03/14/2021 Next Appt Details Provider Name:Korin yi, 09/01/2025 10:00:00 AM, [address] [place], [address], Insurance Providers Payer Name Payer Address Payer Phone Subscriber Number Group Number Insured Name Patient Relationship to Insured Coverage Start Date Coverage End Date Blue Benefits [address] [address] [place] [address] [id number] Desi Saba Self - patient is the [...]
--- OUTSIDE RECORDS SUMMARY | 2025-06-23 09:00 | XMS_ITS | Encounter Summary ---
Author Organization [facility] Address [address] [place] [address] Phone Care Team Providers Care Account Liaison Hospice Name Role Phone Drummond [place] FIRESETTER Unavailable [phone] Montserrat Zhong JIGGER MACHINE OPERATOR Unavailable + [phone] Steven Hahn FIRESETTER Primary Care Provider + Encounter Details Date Type Department Care Team (Late st Contact Info) Description 04/14/2024 Procedure Pass [facility] [address] [place] [address] Social History Tobacco Use Types Packs/Day Years Used Date Smoking Tobacco: Former Cigarettes 1 30 11 968 - 1987 Smokeless Tobacco: Never Alcohol Use Standard [...] on filedocumented in this encounter Care Teams Account Liaison Hospice Relationship Specialty Start Date End Date Steven Hahn, FIRESETTER [address] [place] [address] PCP - General Nurse Practitioner 04/04/23 Desi Drummond NP [address] [place] [address] [place] [address] Historical LMR Provider 08/27/17 Montserrat Zhong, JACKSON [address] [place] [address] [place] [address] jo Historical LMR Provider 08/27/17 documented as of this encounter Additional Source Comments The information contained in this document represents components of the legal health record. It is not the complete legal health record.[facility]
--- OUTSIDE RECORDS SUMMARY | 2025-06-23 09:00 | XMS_ITS | Patient Health Record ---
Author Organization [facility] Address [address] [place] [address] Care Team Providers Care Legal Coordinator Name Role Phone MD ANIVAL PINEDO Primary Care Provider Unavail able Malcom Ni Jr Unavailable [phone] Allergies Allergen (clinical drug ingredient) Drug/Non Drug [...] Problem Status W/U Status Risk Notes Problem [id number] Colon cancer screening (Z12.11) Active confirmed Problem 89936187 Encounter for other preprocedural examination (Z01.818) Active confirmed Plan Of Treatment Future Test Test Name Order Date COLONOSCOPY 07/24/2017 Insurance Providers Payer Name Payer Address Payer Phone Subscriber Number Group Number Insured Name Patient Relationship to Insured Coverage Start Date Coverage End Date [facility] [address] [facility] [place] [phone] [id number] MARIUM PRADO Self - patient is the insured Medical (General) History Medical History History ICD Code essential tremor depression/anxiety Surgical History Surgery Date(Month/Year) breast augmentation 1979 ovarian surgery 1989 triple arthrodesis tyler. feet surgery 196 5 and 1967 retinal surgery on right eye cholecystectomy
--- NOTE | 2025-06-23 09:37 | PM.PROC ---
Brief Operative Note Date of procedure: 06/23/25 Pre-op diagnosis: left mid 3.6 cm and left superior 1.8 cm thyroid nodule FNA biopsy Post-op diagnosis: same Procedure: THYROID FINE NEEDLE ASPIRATION PROCEDURE NOTE ? PROCEDURE PERFORMED: Ultrasound-guided FNA of thyroid nodule ? OPERATORS: Dr. Madeleine Dunbar ? INDICATION: left mid 3.6 cm and left superior 1.8 cm thyroid nodule; FNA performed to assess for malignancy ? DESCRIPTION OF PROCEDURE: The indications for FNA (to assess for malignancy) were reviewed with the patient in detail. Potential complications (e.g., bleeding, infection, damage to local structures, absence of clear diagnosis after FNA) were reviewed. Alternatives to FNA including conservative observation or surgery were described. The patient understood and agreed to proceed. This was documented by the signing of the written informed consent form. A time-out was performed to confirm the patient's identity and the site of planned FNA. The nodules of interest were identified using ultrasound (14 MHz linear array probe). The sites of FNA were then draped in the usual fashion and carefully cleaned and prepared using alcohol swabs. The skin at the previously-identified sites of needle insertion was iced and sprayed with numbing spray. First for the left mid 3.6 cm thyroid nodule Under ultrasound guidance, _4_ passes were performed using a 1.5-inch, 25-gauge needle, and sample was obtained via capillary action. The needle tip was clearly visualized to be within the nodule at the time of sampling for 4__ of _4_ passes Then for the left superior 1.8 cm thyroid nodule Under ultrasound guidance, _4_ passes were performed using a 1.5-inch, 25-gauge needle, and sample was obtained via capillary action. The needle tip was clearly visualized to be within the nodule at the time of sampling for 4__ of _4_ passes The patient tolerated the procedure well. There were no immediate complications. A small adhesive bandage was applied, and the patient was advised to take acetaminophen (rather than NSAIDs) for any discomfort and to report any signs of inflammation/infection or marked swelling. IMPRESSION: Technically successful ultrasound-guided fine needle aspiration of left mid 3.6 cm and left superior 1.8 cm thyroid nodules. PLAN: The patient was advised that I will provide follow-up regarding the cytology result and any subsequent plans. Madeleine Dunbar MD Endocrinology Attending Condition: stable Disposition: same day
== END 2025-06-23 08:45 | disposition home or self-care (01) ==
LOC: HO.US 08:44
PROVIDERS: PCP Nurse Practitioner Family; Visit Provider Student in an Organized Health Care Education/Training Program
DX: E05.20 Thyrotoxicosis with toxic multinodular goiter without thyrotoxic crisis or storm (principal)
CPT/HCPCS: 10005; 10006; 88173; 88305

== ENCOUNTER → 2025-06-23 08:44 | Outpatient (BNV) | payer OTHER, SELFPAY | PROVIDERS: PCP Nurse Practitioner Family; Visit Provider Student in an Organized Health Care Education/Training Program | DX: E04.2 Nontoxic multinodular goiter (principal) | CPT/HCPCS: 10005; 10006 ==

== ENCOUNTER 2025-06-25 14:53 | Outpatient (REF) | payer OTHER, SELFPAY ==
--- NOTE | ~2025-06-25 | XR_ITS ---
EXAMINATION: XR FOREARM 2 VIEWS RIGHT HISTORY: S50.11XA - Contusion of right forearm, initial encounter COMPARISON: There are no prior studies available for comparison. FINDINGS: AP and lateral views of the right forearm are submitted. There is a well-circumscribed lucency without sclerotic margins in the proximal radius. There is no fracture or dislocation. There is moderate degenerative change at the elbow. There wrist joint is maintained. The soft tissues are unremarkable. XR/XR forearm RT 2V IMPRESSION: 1. No evidence of fracture of the right forearm. 2. Well-circumscribed lucency without sclerotic margins in the proximal radius. Further imaging evaluation could include MRI. 3. Moderate degenerative change of the elbow. Electronically signed by: Zander Young MD 06/25/2025 03:43 PM EDT
== END 2025-06-25 14:54 | disposition home or self-care (01) ==
LOC: HO.HMGCX 14:53
PROVIDERS: PCP Nurse Practitioner Family; Visit Provider Physician Assistant
DX: S50.11XA Contusion of right forearm, initial encounter (principal); W01.0XXA Fall on same level from slipping, tripping and stumbling without subsequent striking against object, initial encounter
CPT/HCPCS: 73090

== ENCOUNTER 2025-06-25 14:53 | Outpatient (AMB) | payer OTHER, SELFPAY ==
--- OUTSIDE RECORDS SUMMARY | 2025-06-25 14:54 | XMS_ITS | Patient Health Record ---
Author Organization [facility] [place] Address [address] [place] [address] Care Team Providers Care Auto Polisher Name Role Phone Steven Lopez Primary Care Provider Unav ailable Korin Shipman Unavailable [phone] Allergies Allergen (clinical drug ingredient) Drug/Non Drug [...] CAPSULE BY [facility] EVERY DAY WITH FOOD; Duration: 30 Active [...] toe of lesser toe of left foot ([id number] 44242) Other hammer toe(s) (acquired), left foot (M20.42) Active confirmed Problem Osteoarthritis o f right ankle or foot (M19.071) Active confirmed Vital Signs Blood pressure diastolic 70 mm Hg 06/02/2025 Height 5ft4in in 06/02/2025 Blood pressure systolic 122 mm Hg 06/02/2025 Weight 182 lbs 06/02/2025 BMI 31.24 kg/m2 06/02/2025 Encounters Encounter Location Date Provider Diagnosis [facility] [address] [place] [address] 03/04/2025 Korin Shipman Tinea unguium B35.1 ; Other hammer toe(s) (acquired), left foot M20.42 ; Pain in right toe(s) M79.674 and Pain in left toe(s) M79.[address] [facility] [address] 06/02/2025 Korin Shipman Tinea unguium B35.1 ; Osteoarthritis of right ankle or foot M19.071 ; Pain in right toe(s) M79.674 ; Pain in left toe(s) M79.675 ; Arthralgia of right ankle M25.571 ; Flat foot [pes planus] (acquired), right foot M21.41 and Flat foot [pes planus] (acquired), left foot M21.[address] [address] 10/27/2024 Korin Shipman Assessments Encounter Date Diagnosis [...] Details Provider Name:Korin yi, 09/01/2025 10:00:00 AM, [address] [place] [address], [place], [address], Insurance Providers Payer Name Payer Address Payer Phone Subscriber Number Group Number Insured Name Patient Relationship to Insured Coverage Start Date Coverage End Date Blue Benefits [address] [address] [place] [address] [phone] [id number] Desi Saba Self - patient is the [...]
--- OUTSIDE RECORDS SUMMARY | 2025-06-25 14:54 | XMS_ITS | Encounter Summary ---
Author Organization [facility] Address [address] [place] [address] Phone Care Team Providers Care Frame Tender Name Role Phone Drummond [place] CLOTHING CUTTER Unavailable [phone] Montserrat Zhong TECHNICAL PROJECT LEAD Unavailable + [phone] Steven Hahn CLOTHING CUTTER Primary Care Provider + Encounter Details Date Type Department Care Team (Late st Contact Info) Description 04/14/2024 Procedure Pass [facility] [address] [place] [address] Social History Tobacco Use Types Packs/Day Years [...] on filedocumented in this encounter Care Teams Frame Tender Relationship Specialty Start Date End Date Steven Hahn, CLOTHING CUTTER [address] [facility] [place] [address] PCP - General Nurse Practitioner 04/04/23 Desi Drummond NP [address] [place] [address] [place] [address] Historical LMR Provider 08/27/17 Montserrat Zhong, JACKSON [address] [place] [address] [place] [address] jo Historical LMR Provider 08/27/17 documented as of this encounter Additional Source Comments The information contained in this document represents components of the legal health record. It is not the complete legal health record.[facility]
--- OUTSIDE RECORDS SUMMARY | 2025-06-25 14:54 | XMS_ITS | Patient Health Record ---
Author Organization [facility] Address [address] [place] [address] Care Team Providers Care Rock Worker Name Role Phone MD ANIVAL PINEDO Primary Care Provider Unavail able Malcom Ni Jr Unavailable Allergies Allergen (clinical drug ingredient) Drug/Non Drug [...] Problem Status W/U Status Risk Notes Problem [id number] Colon cancer screening (Z12.11) Active confirmed Problem 26560792 Encounter for other preprocedural examination (Z01.818) Active confirmed Plan Of Treatment Future Test Test Name Order Date COLONOSCOPY 07/24/2017 Insurance Providers Payer Name Payer Address Payer Phone Subscriber Number Group Number Insured Name Patient Relationship to Insured Coverage Start Date Coverage End Date [facility] [address] [facility] [place] [place] [phone] [id number] MARIUM PRADO Self - patient is the insured Medical (General) History Medical History History ICD Code essential tremor depression/anxiety Surgical History Surgery Date(Month/Year) breast augmentation 1979 ovarian surgery 1989 triple arthrodesis tyler. feet surgery 196 5 and 1967 retinal surgery on right eye cholecystectomy
[2025-06-25 15:01] VITALS: BP 142/72; PULSE 88; TEMP 36.9; O2SAT 98; BMI 31.3
--- NOTE | 2025-06-25 15:01 | AM.OFFWIN_ITS ---
Intake Vital Signs 06/25/25 15:01 Height 5 ft 4 in Weight 182 lb 2 oz BMI 31.3 BP 142/72 H Blood Pressure Location Lt brachial Position Sitting Pulse 88 Pulse Source Pulse Oximeter Temp 98.4 F Temp Source Oral Pulse Oximetry (%) 98 Oxygen Delivery Method Room Air Intake Visit Reasons: EP-rt arm pain from a fall Patient Tobacco Use Status: Former Tobacco user Sintering Press Operator Required: No Allergies metronidazole (From FLAGYL) Allergy (Severe, Verified 06/25/25 15:08) ANAPHYLAXIS sulfamethoxazole (From Bactrim) Allergy (Severe, Verified 06/25/25 15:08) Palpitations trimethoprim (From Bactrim) Allergy (Severe, Verified 06/25/25 15:08) Palpitations sulfite (Sulfite) Allergy (Intermediate, Verified 06/25/25 15:08) BISULFITES-ITCHING IN MOUTH & THROAT,SHORTNESS OF BREATH phenylalanine (PHENYLALANINE) Allergy (Mild, Verified 06/25/25 15:08) UNKNOWN barber pepper (GREEN PEPPER) Allergy (Unknown, Verified 06/25/25 15:08) LIP SWELLING From FLAGYL Allergy (Severe, Uncoded 06/03/25 14:23) ANAPHYLAXIS bisulfites Allergy (Unknown, Uncoded 06/03/25 14:23) itching peppers Allergy (Unknown, Uncoded 06/03/25 14:23) Unknown Do you need a note to return to daycare/school/sports/work: No HPI HPI Comments History of Present Illness Details This is a 69-year-old female presenting for evaluation of injuries sustained in a fall approximately 2 hours prior to arrival. Patient was leaving a [employer] store when she lost her balance after tripping over a break in the concrete of the parking lot. Patient fell onto her right forearm. She denies any head injury or loss of consciousness. She is complaining of pain in her right forearm and has not taken any medication for her discomfort. [facility] Medical History (Updated 06/25/25 @ 15:43 by Kaylee Waters PA-C) Thyrotoxicosis with toxic mutinodular thyroid goiter Hyperthyroidism Vitamin D deficiency Subclinical hyperthyroidism Multinodular thyroid Surgical History H/O colonoscopy Hx of eye surgery Hx laparoscopic cholecystectomy Hx of cataract removal with insertion of prosthetic lens Hx of rhinoplasty Hx of breast augmentation Hx of foot surgery Family History Father No problems noted. 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: Yes Cognitive needs: No Hearing needs: No Vision needs: No Review of Systems Const All systems reviewed & are unremarkable except as noted in HPI and below Denies frequent falls and Denies headache(s) Eyes Reports no additional complaints ENT Denies headache(s) and Denies neck pain GI Denies nausea and Denies vomiting Musc Denies deformity, Denies arthralgias, Denies neck pain, Denies numbness and Reports other (Pain in right forearm) Skin/Breast Reports lesions (Abrasion right forearm) Neuro Reports no additional complaints, Denies frequent falls, Denies headache(s) and Denies numbness Psych Reports no additional complaints Physical Exam Vital Signs: Last Vital Signs Temp 98.4 F 06/25/25 15:01 Pulse 88 06/25/25 15:01 BP 142/72 H 06/25/25 15:01 Pulse Ox 98 06/25/25 15:01 Oxygen Delivery Method Room Air 06/25/25 15:01 BMI result Body Mass Index 31.3 Const General: cooperative, healthy appearing, comfortable, no acute distress, well developed, alert, awake and Physically active Nutritional Appearance: average body habitus Orientation/consciousness: patient oriented x3 Limitations: no limitations Skin Trauma: abrasion (surface abrasion right forearm overlying mid.shaft of ulna) Neuro General: patient oriented x3, tone normal, Normal light touch and pain sensation and no focal motor deficits Cognition (Neuro): normal cognition Gait exam (Neuro): Normal gait present Extrem Right upper extremity: full ROM, normal capillary refill and elbow/forearm Details: abnormal to inspection (abrasion right forearm) Details: no joint swelling and no erythema, normal ROM, abrasion and distal pulses intact (right radial pulse intact); no unusual warmth and no ecchymosis; no edema and joint enlargement noted Psych Appearance: grossly normal Mental Status: mental status grossly normal Insight: Good insight present (Psych) Judgement: Good judgement present (Psych) Results Reviewed Results Reviewed: No acute findings noted on imaging of the right forearm. Assessment & Plan Assessment & Plan (1) Contusion of forearm, right: Comment: Abrasion is cleansed with povidone and dressed with a nonstick gauze and Coban. Patient will be discharged home and she is instructed to use ibuprofen or Tylenol as needed for her discomfort. Code(s): S50.11XA - Contusion of right forearm, initial encounter Qualifiers: Encounter type: initial encounter Qualified Code(s): S50.11XA - Contusion of right forearm, initial encounter Plan: Keep the lesion clean with soap and water daily, you may use ibuprofen or Tylenol as needed for your discomfort. Orders: Orders XR forearm RT 2V Today S50.11XA - Contusion of right forearm, initial encounter Coding Level of Care Code Est Pt Level 3 (27614) Diagnoses Contusion of right forearm, initial encounter S50.11XA Encounter type: initial encounter Time Spent (min) 25
== END 2025-06-25 15:56 | disposition home or self-care (01) ==
PROVIDERS: PCP Nurse Practitioner Family; Visit Provider Physician Assistant
DX: S50.11XA Contusion of right forearm, initial encounter (principal)

== ENCOUNTER → 2025-06-25 15:25 | Outpatient (BNV) | payer OTHER, SELFPAY | PROVIDERS: PCP Nurse Practitioner Family; Visit Provider Radiology Diagnostic Radiology | DX: M19.021 Primary osteoarthritis, right elbow (principal) | CPT/HCPCS: 73090 ==

== ENCOUNTER 2025-07-07 13:58 | Outpatient (AMB) | payer OTHER, SELFPAY ==
--- OUTSIDE RECORDS SUMMARY | 2024-10-28 05:00 | XMS_ITS ---
Author Organization [facility] Address [address] [facility] [place] [address] Care Team Providers Care Pot Tender Name Role Phone Steven Lopez Primary Care Provider Unav ailable Korin Shipman Unavailable [phone] Encounters Encounter Location Date Provider Diagnosis [facility] [address] [place] [address] 10/28/2024 Korin Shipman Plan Of Treatment Next Appt Details Provider Name:Korin yi, 09/01/2025 10:00:00 AM, [address] [place], [address], Progress Notes * Desi SABA EDOB: [birth year] (69 yo F)Acc No.[id number]:10/28/2024 Progress Note Patient: Desi PINEDA Provider: Jeannette Shipman DPM :1955 A ge:69 Y S ex:Female Date:10/28/2024 Address: [address] [id number] Pcp:ESME Thomas Subjective: * Chief Complaints: * [...] 12/29/2023 Generated for Liseth mckeon/Sera on: 0 07/07/2025 02:52 PM EDT
--- NOTE | 2025-07-07 13:59 | MHC.OFFVIS ---
Vital Signs 07/07/25 14:00 Height 5 ft 4 in Weight 181 lb 3.52 oz BMI 31.1 BP 130/52 L Blood Pressure Location Lt brachial Position Sitting Pulse 82 Pulse Source Pulse Oximeter Pulse Oximetry (%) 98 Oxygen Delivery Method Room Air Intake Visit Reasons: FNA Biopsy Results Intake Note: Patient present today for FNA biopsy results. Chrome Polisher Required: No Accompanied by: Self / Same As Patient Allergies metronidazole (From FLAGYL) Allergy (Severe, Verified 07/07/25 14:03) ANAPHYLAXIS sulfamethoxazole (From Bactrim) Allergy (Severe, Verified 07/07/25 14:03) Palpitations trimethoprim (From Bactrim) Allergy (Severe, Verified 07/07/25 14:03) Palpitations sulfite (Sulfite) Allergy (Intermediate, Verified 07/07/25 14:03) BISULFITES-ITCHING IN MOUTH & THROAT,SHORTNESS OF BREATH phenylalanine (PHENYLALANINE) Allergy (Mild, Verified 07/07/25 14:03) UNKNOWN barber pepper (GREEN PEPPER) Allergy (Unknown, Verified 07/07/25 14:03) LIP SWELLING From FLAGYL Allergy (Severe, Uncoded 07/07/25 14:03) ANAPHYLAXIS bisulfites Allergy (Unknown, Uncoded 07/07/25 14:03) itching peppers Allergy (Unknown, Uncoded 07/07/25 14:03) Unknown Medication List - Last Reconciled 07/07/25 by Madeleine Dunbar MD acetaminophen 1,000 mg PO Q6H PRN alendronate 70 mg PO QWEEK atomoxetine 25 mg PO DAILY bupropion HCl XL 150 mg PO QAM cholecalciferol (vitamin D3) 125 mcg PO DAILY diclofenac sodium 1% (Arthritis Pain (diclofenac)) 2 grams topical QID fluoxetine 60 mg PO DAILY lidocaine 5% 1 patch topical DAILY methimazole 5 mg PO DAILY naproxen 500 mg PO BID PRN 10 days vitamin B comp and C no.3 (B Complex Plus Vitamin C) 1 cap PO DAILY HPI Comments Details: 69 years old female coming in today for fup of toxic multinodular goiter. HPI September 2018: CT head and neck for paresthesias revealed a multinodular thyroid February 2019: Ultrasound thyroid showed multiple large bilateral thyroid nodules. A dominant 2 cm right superior thyroid nodule, a dominant left mid lobe 2.2 cm nodule. Multiple additional nodules. 2019: Labs consistent with subclinical hyperthyroidism: Thyroid uptake and scan revealed normal uptake with a heterogenous appearance. Left superior 0.5 cm and right lower pole 1 cm nodules appeared to be the hot toxic nodules. The remainder of the gland was poorly visualized. 09/01/2019: Started on methimazole 5 mg daily 09/10/2019: Status post FNA biopsy of a left midpole 2.1 cm nodule, a right midpole 2.3 cm nodule and her right lower pole 2.4 cm nodule all with benign cytology. There was some inconsistency with the measurements of the FNA ultrasound as opposed to her official thyroid ultrasound. Then she was complaining of compressive symptoms and she was referred for surgical evaluation. However she never went for it and decided not to pursue total thyroidectomy. Then she established care at [facility] with the endocrinology. Was seeing Dr. Mariee, last seen March 2024. She continues on methimazole 5 mg daily. Apparently both radioactive iodine ablation and surgical treatment has been discussed with her previously, but she is not interested. She does not have any significant compressive symptoms. Ultrasound thyroid last done December 2023 12/25/2023, shows a right superior 1.9 cm nodule which is TR 5 category but only some increase in size which is not significant. Probably this was the 1 that was biopsied before in 2018 and was benign? A left midpole 3.6 cm nodule also only shows minimal growth in size, TR 3 category, question whether this is a toxic nodule as previously there was some activity in the left upper pole nodule but no other nodules seen in the left upper pole. Left mid inferior 1.6 cm TR 4 category nodule which is also somewhat increased in size, questionable toxic nodule. Unclear whether these left midpole nodules were biopsied before or not. Risk of malignancy for toxic nodule is generally lower but not 0. Other apparently new left inferior 1.4 cm TR 4 and 1.2 cm nodule. Interval history 07/07/2025 06/23/2025: Status post FNA of the left mid 3.6 cm nodule which came back as nondiagnostic Ragley category 1, and the left superior 1.8 cm nodule which came back as benign Ragley category 2. Takes vitamin D 5000 units daily On methimazole 5 mg daily Physical exam General: sitting comfortably in no acute distress HEENT: normocephalic/atraumatic, Neck: supple, palpable 1-2 cm left-sided nodule Cardiac: normal heart sounds Pulm: normal breath sounds B/L, no added breath sounds Abd: not distended, no tenderness Extremities: no edema, no signs of myxedema Laboratory Tests 04/30/25 07:46 TSH 1.28 Free T3 2.7 Laboratory Tests 04/30/25 07:46 25-OH Vitamin D Total 65.2 US THYROID 12/25/23 CLINICAL INFORMATION: Multinodular goiter. Prior benign biopsy 09/10/2019 nodules in the left mid lobe, right middle lobe and right lower lobe. COMPARISON: Ultrasound soft tissue head/neck thyroid dated 10/16/2021 and 03/28/2021. TECHNIQUE: Linear transducer grayscale and color Doppler examination with attention to the region of the thyroid. FINDINGS: SIZE: Measurements of the thyroid lobes and nodules are given in sagittal, anteroposterior and transverse dimensions respectively. Right Thyroid Lobe: 6.0 x 3.2 x 3.0 cm, volume 30.1 mL. Previously 5.8 x 3.1 x 2.8 cm, volume 26.2 mL. Parenchyma: The gland echotexture is heterogeneous. Thyroid vascularity is increased. Left Thyroid Lobe: 5.9 x 2.8 x 3.0 cm, volume 25.9 mL. Previously 5.2 x 3.1 x 2.6 cm, volume 22.4 mL. Parenchyma: The gland echotexture is heterogeneous. Thyroid vascularity is increased. Isthmus: 0.6 cm in maximum AP dimension. Previously 0.6 cm. Estimated total number of nodules greater than or equal to 1 cm: More than 10. [place] nodules are described as follows: 1. Location: Right superior. Size: 1.9 x 1.6 x 1.7 cm, volume 2.60 mL. Previously: 1.5 x 1.4 x 1.5 cm, volume 1.64 mL. Nodule characteristics: Composition: Mixed cystic and solid (1). Echogenicity: Cannot be determined (1). Shape: Not taller than wide (0). Margins: Smooth (0). Echogenic Foci: Peripheral calcifications (2). Punctate echogenic foci (3). ACR TI-RADS total points: 7 Previous: 5 ACR TI-RADS category: 5 Previous: 4 Significant change in size (>/= 20% in 2 dimensions and minimal increase of 2 mm or 50% or greater increase in volume): Yes Change in features: No Change in ACR TI-RADS risk category: Yes 2. Location: Left mid. Size: 3.6 x 2.0 x 2.7 cm, volume 10.3 mL. Previously: 3.1 x 2.3 x 1.7 cm, volume 6.3 mL. Nodule characteristics: Composition: Solid (2). Echogenicity: Isoechoic (1). Shape: Not taller than wide (0). Margins: Irregular (2). Echogenic Foci: None (0). ACR TI-RADS total points: 5 Previous: 3 ACR TI-RADS category: 4 Previous: 3 Significant change in size (>/= 20% in 2 dimensions and minimal increase of 2 mm or 50% or greater increase in volume): Yes Change in features: No Change in ACR TI-RADS risk category: Yes 3. Location: Left medial inferior. Size: 1.6 x 1.0 x 1.5 cm, volume 1.25 mL. Previously: 1.6 x 0.8 x 1.2 cm, volume 0.8 mL. Nodule characteristics: Composition: Solid (2). Echogenicity: Hypoechoic (2). Shape: Not taller than wide (0). Margins: Smooth (0). Echogenic Foci: Punctate echogenic foci (3). ACR TI-RADS total points: 7 Previous: 4 ACR TI-RADS category: 5 Previous: 4 Significant change in size (>/= 20% in 2 dimensions and minimal increase of 2 mm or 50% or greater increase in volume): Yes Change in features: No Change in ACR TI-RADS risk category: Yes 4. Location: Left inferior medial. Size: 1.4 x 1.0 x 1.3 cm, volume 0.95 mL. Previously: New since the previous study. Nodule characteristics: Composition: Solid (2). Echogenicity: Hypoechoic (2). Shape: Not taller than wide (0). Margins: Smooth (0). Echogenic Foci: None (0). ACR TI-RADS total points: 4 ACR TI-RADS category: 4 5. Location: Left medial inferior. Size: 1.2 x 0.9 x 1.1 cm, volume 0.63 mL. Previously: New since the previous study. Nodule characteristics: Composition: Solid (2). Echogenicity: Hypoechoic (2). Shape: Not taller than wide (0). Margins: Smooth (0). Echogenic Foci: Macrocalcifications (1). ACR TI-RADS total points: 5 ACR TI-RADS category: 4 NODES: No lymphadenopathy is seen in the tissue surrounding the thyroid gland. US/US thyroid IMPRESSION: 1. Enlarged heterogeneous thyroid gland with multiple nodules. 2. 1.9 cm nodule in the upper pole of the right lobe, TR 5, fulfills the criteria for FNA. Fine-needle aspiration is recommended, if not already performed. 3. 3.6 cm nodule in the mid left lobe, TR 3, fulfills the criteria for FNA. Fine-needle aspiration is recommended, if not already performed. 4. 1.6 cm nodule in the left medial lower pole, TR 4, fulfills the criteria for FNA. Fine-needle aspiration is recommended, if not already performed. 5. Routine annual sonographic follow-up of the 2 nodules in the lower pole of the left lobe is recommended. Thyroid US: 03/03/19 Right Thyroid Lobe: 6.3 x 2.6 x 2.2 cm, volume 21.6 mL. Parenchyma: The gland echotexture is heterogeneous. Thyroid vascularity is normal. Left Thyroid Lobe: 5.1 x 2.3 x 2.1 cm, volume 13.1 mL. Parenchyma: The gland echotexture is heterogeneous. Thyroid vascularity is normal. Isthmus: 0.3 cm in maximum AP dimension. RIGHT THYROID LOBE: There are 3 nodules seen. 1. Location: Superior. Size: 2.0 x 1.6 x 1.4 cm. Nodule characteristics: Heterogeneous, smooth margins, calcification and positive intranodular flow. 2. Location: Middle. Size: 0.8 x 0.8 x 0.8 cm. Nodule characteristics: Hypoechoic and complex cystic, smooth margins, question calcification and no intranodular flow. 3. Location: Inferior. Size: 1.0 x 1.0 x 0.9 cm. Nodule characteristics: Hypoechoic and heterogeneous, smooth margin, no calcification and minimal peripheral flow.. ISTHMUS: No nodules. LEFT THYROID LOBE: There are 4 nodules seen. 1. Location: Inferior. Size: 0.9 x 0.7 x 0.7 cm. Nodule characteristics: Hypoechoic and slightly heterogeneous, smooth margins, no calcification and peripheral flow. 2. Location: Middle. Size: 2.2 x 1.6 x 1.6 cm. Nodule characteristics: Hypoechoic and slightly heterogeneous, smooth margins with hypoechoic rind, no calcification and intranodular flow. 3. Location: Middle. Size: 1.0 x 0.6 x 0.8 cm. Nodule characteristics: Hypoechoic and heterogeneous, smooth margins, no calcification and minimal peripheral flow. 4. Location: Superior. Size: 0.5 x 0.4 x 0.4 cm. Nodule characteristics: Hypoechoic, smooth margins, no calcification and no intranodular flow. NODES: No lymphadenopathy is seen in the tissue surrounding the thyroid gland. Thyroid Uptake and Scan: 03/23/19 FINDINGS: The uptake is 11.2% at 4 hours and 23.8% at 24 hours. The radioiodine uptake is normal. The radiopertechnetate thyroid scintigram shows the thyroid gland to be markedly heterogeneous. There is an ovoid shaped focus of markedly increased activity present in the upper half of the left lobe and a smaller ovoid shaped focus is present medially in the lower pole of the right lobe. There is only faint visualization of the remainder the right lobe and the lower pole the left lobe is not well visualized. A single anterior radioiodine image obtained at the time of the 24-hour uptake measurement is similar 2 the radio pertechnetate image but does not delineate the detail as well. [facility] Medical History (Updated 06/25/25 @ 15:43 by Kaylee Waters PA-C) Thyrotoxicosis with toxic mutinodular thyroid goiter Hyperthyroidism Vitamin D deficiency Subclinical hyperthyroidism Multinodular thyroid Surgical History H/O colonoscopy Hx of eye surgery Hx laparoscopic cholecystectomy Hx of cataract removal with insertion of prosthetic lens Hx of rhinoplasty Hx of breast augmentation Hx of foot surgery Family History Father No problems noted. 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 Diagnosed in 2018, with multiple thyroid nodules, at that time she was also found to have subclinical hyperthyroidism. Thyroid uptake and scan in March 2019 showed heterogenous activity with increased uptake in the right inferior and left superior/mid lobe. In August 2019 she underwent biopsy of her right mid lobe 2.3 cm, right inferior 2.4 cm and left mid lobe 2.1 cm thyroid nodules which were benign. Subsequently she had some of the surveillance ultrasounds, in 2020 and then more recently in December of 2023. She had been complaining intermittently of some compressive symptoms would not too bothersome, plus given underlying hyperthyroidism, it was recommended for her to have surgical evaluation however patient was previously not willing to do that. Radioactive iodine ablation has also been discussed with her. However given multiple thyroid nodules which in the [place] [facility] could need multiple biopsies plus underlying hyperthyroidism she would be a better candidate for surgical evaluation. At this time she is feeling ready for surgical evaluation. I did discuss with her that I would recommend total thyroidectomy in her case given multiple bilateral nodules, plus underlying hyperthyroidism requiring methimazole, which would render her hypothyroid independent on levothyroxine for the rest of her life. Patient verbalized understanding. Most recent thyroid ultrasound from December 2023Ultrasound thyroid last done December 2023 12/25/2023, shows a right superior 1.9 cm nodule which is TR 5 category but only some increase in size which is not significant. Probably this was the 1 that was biopsied before in 2018 and was benign? A left midpole 3.6 cm nodule also only shows minimal growth in size, TR 3 category, question whether this is a toxic nodule as previously there was some activity in the left upper pole nodule but no other nodules seen in the left upper pole. Left mid inferior 1.6 cm TR 4 category nodule which is also somewhat increased in size, questionable toxic nodule. Unclear whether these left midpole nodules were biopsied before or not. Risk of malignancy for toxic nodule is generally lower but not 0. Other apparently new left inferior 1.4 cm TR 4 and 1.2 cm nodule. We decided to biopsy the left mid 3.6 cm nodule and during biopsy the left superior 1.8 cm nodule appeared the 2nd largest target. 06/23/2025: Status post FNA of the left mid 3.6 cm nodule which came back as nondiagnostic Ragley category 1, and the left superior 1.8 cm nodule which came back as benign Ragley category 2 Even though 1 of the nodules came back as nondiagnostic, she has had multiple biopsies before, some of these could be toxic nodules, other 7 biopsied before and were benign. At this time she is feeling ready for surgical evaluation. I did discuss with her that I would recommend total thyroidectomy in her case given multiple bilateral nodules, plus underlying hyperthyroidism requiring methimazole, which would render her hypothyroid independent on levothyroxine for the rest of her life. Patient verbalized understanding. We also discussed risk of bleeding, infection, damage to surrounding nerves or vessels. We also discussed minimal risk of damage to parathyroid glands, she is on vitamin-D supplements, vitamin-D level of 65 from April 2025. At this time she can continue methimazole 5 mg daily. Most recent blood work from April 2025 showed normal thyroid blood work. Plan: -continue methimazole 5 mg daily -referral placed for Dr. Birgit Ralph for total thyroidectomy at [facility] -we will tentatively book her for a follow up in January 2026, however patient will let us know once she has a surgical date as she would need to be seen 6 weeks postoperatively. Plan I spent 30 minutes in reviewing the record, seeing the patient and documenting in the medical record. Orders: Referrals General Surgery Referral E05.20 - Thyrotoxicosis with toxic multinodular goiter without thyrotoxic crisis or storm Patient Instructions: Continue methimazole 5 mg daily Continue vitamin D supplements We are referring you to Dr. Birgit Ralph at [facility], if you dont hear from anyone in the next 3 weeks or so from their office, please call us to followup on the status of your referral or call their office directly [phone] For now we will tentatively see you back in January, however if decided to go ahead with surgery and once you have a date for surgery please call our office to inform us as you will need an appointment 6 weeks post surgery Coding Level of Care Code Est Pt Level 4 (90234) Diagnoses Thyrotoxicosis with toxic mutinodular thyroid goiter E05.20 Time Spent (min) 30
[2025-07-07 14:00] VITALS: BP 130/52; PULSE 82; O2SAT 98; BMI 31.1
--- OUTSIDE RECORDS SUMMARY | 2025-07-07 14:52 | XMS_ITS | Encounter Summary ---
Author Organization [facility] Address [address] [place] [id number] Phone Care Team Providers Care Clocksmith Name Role Phone Drummond Devens STRAPPING MACHINE TENDER Unavailable [phone] Montserrat Zhong ELECTRONIC CONSOLE DISPLAY OPERATOR Unavailable + [phone] Steven Hahn STRAPPING MACHINE TENDER Primary Care Provider + Encounter Details Date Type Department Care Team (Late st Contact Info) Description 04/14/2024 Procedure Pass [facility] [address] [place] [address] Social History Tobacco Use Types Packs/Day Years [...] on filedocumented in this encounter Care Teams Clocksmith Relationship Specialty Start Date End Date Steven Hahn, STRAPPING MACHINE TENDER 1962 [facility] [place] [address] PCP - General Nurse Practitioner 04/04/23 Desi Drummond NP [address] [place] [address] [place] [id number] Historical LMR Provider 08/27/17 Montserrat Zhong, JACKSON [address] [place] [address] [place] [phone] jo Historical LMR Provider 08/27/17 documented as of this encounter Additional Source Comments The information contained in this document represents components of the legal health record. It is not the complete legal health record.[facility]
--- OUTSIDE RECORDS SUMMARY | 2025-07-07 14:52 | XMS_ITS | Patient Health Record ---
Author Organization [facility] Address [address] [place] [address] Care Team Providers Care Aircraft Engine Cylinder Mechanic Name Role Phone MD ANIVAL PINEDO Primary Care Provider Unavail able Malcom Ni Jr Unavailable [phone] Allergies Allergen (clinical drug ingredient) Drug/Non [...] Problem Status W/U Status Risk Notes Problem [id number] Colon cancer screening (Z12.11) Active confirmed Problem [id number] Encounter for other preprocedural examination (Z01.818) Active confirmed Plan Of Treatment Future Test Test Name Order Date COLONOSCOPY 07/24/2017 Insurance Providers Payer Name Payer Address Payer Phone Subscriber Number Group Number Insured Name Patient Relationship to Insured Coverage Start Date Coverage End Date [facility] [address] [facility] [place], [place] [phone] [id number] MARIUM PRADO Self - patient is the insured Medical (General) History Medical History History ICD Code essential tremor depression/anxiety Surgical History Surgery Date(Month/Year) breast augmentation 1979 ovarian surgery 1989 triple arthrodesis tyler. feet surgery 196 5 and 1967 retinal surgery on right eye cholecystectomy
--- OUTSIDE RECORDS SUMMARY | 2025-07-07 14:52 | XMS_ITS | Clinical Summary ---
Author Organization [facility] Address [address] [place] [id number] Phone Care Team Providers Care Music Theory Teacher Name Role Phone DrummondAdrienneAngel Fire SEMICONDUCTOR PACKAGES TESTER Unavailable [phone] Montserrat Zhong STEM CUTTER Unavailable Steven Hahn SEMICONDUCTOR PACKAGES TESTER Primary Care Provider + Allergies Active Allergy Reactions Criticality Noted Date Comments Fluticasone 04/09/2017 Other reaction(s): Throat Irritation Metronidazole Anaphylaxis High 04/09/2017 Other Anaphylaxis,Rash High 04/09/2017 Bisulfite MOUTH ITCHES Ropinirole 04/09/2017 Other reaction(s): Crazy nightmares Sodium Bisulfite Anaphylaxis High 04/07/2024 Medications valACYclovir (VALTREX) 1000 MG tablet Take 1 tablet by mouth daily as needed. 09/22/2014 Active naproxen (NAPROSYN) 500 MG tablet Take 1 tablet by mouth daily as needed. Active FLUoxetine (PROZAC) 40 MG capsule Take 40 mg by mouth daily. Active buPROPion (WELLBUTRIN XL) 150 MG ER 24 hr tablet Take 150 mg by mouth daily. Active cholecalciferol (VITAMIN D3) 2,000 unit capsule Take by mouth daily. Active lurasidone (LATUDA) 20 mg tablet Take 1 tablet by mouth every morning. 03/20/2023 Active alendronate (FOSAMAX) 70 MG tablet 04/02/2023 Active atomoxetine (STRATTERA) 25 MG capsule 1 capsule. Active piroxicam (FELDENE) 20 MG capsule daily as needed. Active methIMAzole (TAPAZOLE) 5 MG tabletIndications :Toxic multinodular goiter Take 1 tablet (5 mg total) by mouth daily. 90 tablet 4 04/07/2024 Active Active Problems Problem Noted Date Diagnosed Date Toxic multinodular goiter 02/03/2020 Assessment & Plan (04/07/2024 11:12 AM EDT): Patient has a toxic multinodular goiter. Based on radioactive iodine uptake and scan the uptake or the toxic nodule was in the left upper pole. She has a right superior nodule measuring 1.9 x 1.6 x 1.7 cm with volume of 2.6 mL TI-RADS 5. This nodule previously was biopsied but I do not have the cytology report. It has grown by 22 %/year over the last 3 years. Based on this he does not require biopsy. Since I do not have the cytology report I will refer her for biopsy. There is a left mid lobe nodule measuring 3.6 x 2.0 x 2.7 volume of 10.3 mL that has grown by 21% yearly over the last 3 years and I suspect that this is a toxic nodule which is less likely to be malignant but it has not been biopsied as far as I can also refer her for biopsy. There is also another left mid inferior nodule measuring 1.6 x 1.0 x 1.6 volume of 1.2 mL which has grown by 16.6 %/year is a TI-RADS 4 nodule this potentially could be toxic as well but will refer for biopsy. Lastly there are 2 left inferior medial nodules 1 measuring 1.4 x 1.0 x 1.3 and the other measuring 1.2 x 0.9 x 1.1 cm which we will observe. I will refer the patient for ultrasound-guided fine-needle aspiration at [facility]. She will have to check with her insurance whether she can get this done at [facility]. As for thyroid function she is chemically euthyroid she should continue methimazole 5 mg daily. I requested thyroid function studies to be done again in 1 year. But I will see her in 3 months for review of cytology report. Assessment & Plan (04/04/2023 10:51 AM EDT): This is a patient with a toxic multinodular goiter apparently the toxic nodules in the left upper lobe. She has been managed for the last 15 months with methimazole and is chemically euthyroid. She complains of heat intolerance despite normal thyroid function studies so I do not think that this is thyroid related. She also complains of pressure sensation on her neck and she feels that she has hearing loss on the right ear and wonders if this could be related to an enlarged right thyroid lobe. She apparently has been checked by ENT and they have not found any etiology for this. She does not have obstructive complaints but is complaining of pressure sensation and tenderness on the right aspect of her neck and also centrally. I have informed her before and that the only possible management would be to do right lobectomy and I really do not know if it is indicated for this tenderness because she is not having any obstructive symptoms. Furthermore doing right lobectomy would not correct hyperthyroidism because as per the radiologist the toxic nodules in the left upper lobe. She would like to confirm where endocrine surgeon for further evaluation and possible lobectomy versus thyroidectomy. I have referred her to endocrine surgeon Dr. Birgit Ralph for further management of the goiter. In the meantime she will continue methimazole 5 mg daily. I have given her follow-up appointment in 1 year but of course if she does have surgery we may have to adjust the dose of methimazole and if she has total thyroidectomy she is going to require levothyroxine therapy, so she will have to see me sooner. I did request thyroid ultrasound since she has not had a repeat study since 03/03/2019 she is going to have this done at [facility]. Assessment & Plan (04/05/2022 10:38 AM EDT): The patient has a toxic multinodular goiter and is well controlled with methimazole 5 mg daily. I will renew the medications. As for feeling fatigued so many reasons for her to feel fatigue. Her TSH is 2.0 which is midline just for most people for in terms of TSH levels. So I would not bother changing the dose of methimazole since her numbers are good. She will repeat thyroid function studies in 1 year. Assessment & Plan (04/05/2021 10:43 AM EDT): The patient is chemically and clinically euthyroid. I will renew methimazole 5 mg for another year. She should return for follow-up in 1 year she needs to make sure that she gets the lab work done. Because she has to do lab work at [facility] I asked her to make sure that we get a copy of the lab results prior to the follow-up visit. Assessment & Plan (11/18/2020 10:26 AM EST): This is a patient with a toxic multinodular goiter but she also has a right upper pole pole nodule which apparently was biopsied found to be benign. She is due for repeat ultrasound because the last time it was done was on February 2019. So I am particularly interested in the right upper pole nodule that was a cold nodule. As for the other nodules they seem to be autonomous nodules and she is on methimazole for management. She states that she feels good and does not have any obstructive symptoms. She ran out of methimazole a few days back I will renew the medication. However I asked her to repeat thyroid function studies today if at all possible and again prior to the follow-up visit in 3 months time just to make sure that her thyroid function is in the reference range after that I could see her on a yearly basis assuming that her thyroid function is in the reference range. 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 This is fine I will just require the reports on the follow-up visit. Assessment & Plan (02/03/2020 10:42 AM EDT): The patient sought out a second opinion for toxic multinodular goiter because she really does not want to have thyroidectomy so her question to me was that she require total thyroidectomy and her answer is no. She can be treated with methimazole long-term for toxic multinodular goiter. She can also have radioactive iodine uptake and scan. She is no longer having obstructive symptoms and I think that if she did have obstructive symptoms total thyroidectomy will take care of all her problems including the problems swallowing problems with hyperthyroidism and she will no longer require serial ultrasounds and biopsies. However, the patient does appear to have cold nodules and she definitely has 1 large cold nodule in the right lobe which measures 2.0 x 1.6 x 1.4 cm its in the upper lobe. This nodule I believe was most likely biopsied but I do not have definitive information on this because I did not get the report or any documentation furthermore the patient does not recall. As for the right mid lobe nodule is too small to biopsy in the right lower pole nodule is likely a hot nodule. I believe that the left superior and mid lobe nodules are all hot nodule due to the increased uptake there is a left inferior nodule that measures 0.9 x 0.7 x 0.7 cm that is too small to biopsy this could be potentially a cold nodule. Potentially she should have a repeat ultrasound by 03/03/2020 for monitoring of nodular growth. Sometimes is done a year after the biopsy but I do not know what date the biopsy was done. Currently the patient is chemically and clinically euthyroid on methimazole 10 mg do not see any need to change the medication. Furthermore she is not having any adverse effects with this medication as far as I am aware but I do not have her chemistry panels or CBC panel to know if she has had any chemical hepatitis or agranulocytopenia. Depression with anxiety 10/17/2017 Essential tremor 10/17/2017 GERD (gastroesophageal reflux disease) 7 Obstructive sleep apnea syndrome 10/17/2017 Restless leg syndrome 10/17/2017 Seasonal allergic rhinitis 10/17/2017 Itching 10/17/2017 Overview (03/12/2018): MOUTH ITCHES Immunizations Immunization Administration Dates Next Due COVID-19 (Pre-09/02) Pfizer Vaccine, mRNA, PF 11/23/2020,11/02/2020 INFLUENZA, SPLIT VIRUS, TRIV ALENT W/ PRESERVATIVE IM 09/05/2016 Influenza Quadrivalent Prese rvative Free IM 10/19/2021,09/28/2020,12/11/2019,11/12 Influenza Quadrivalent w/ Pr eservative IM 08/30/2017 Pneumococcal polysaccharide PPSV23 01/23/2013 Family History Medical History Relation Comments Prostate cancer Brother 1 No Known Problems Brother 2 Diabetes Father Glaucoma Father Multiple myeloma Father Heart attack Maternal Grandfather Skin cancer Maternal Grandmother Stroke Maternal Grandmother Colon polyps Mother Pancreatic cancer Mother Sarcoidosis Mother Stroke Paternal Grandfather No Known Problems Paternal Grandmother Hypothyroidism Sister Relation Status Comments Brother 1 Alive Brother 2 Alive Father Maternal Grandfather Maternal Grandmother Mother Paternal Grandfather Paternal Grandmother Sister Alive Social History Tobacco Use Types Packs/Day Years Used Date Smoking Tobacco: Former Cigarettes 1 20 1 968 - 1987 Smokeless Tobacco: Never Alcohol [...] on file Sexual Orientation Not on file Last Filed Vital Signs Vital Sign Reading Time Taken Comments Blood Pressure 122/64 04/07/2024 10:27 AM EDT Pulse 86 04/07/2024 10:27 AM EDT Temperature - - Respiratory Rate - - Oxygen Saturation 99% 04/07/2024 10:27 AM EDT Inhaled Oxygen Concentration - - Weight 79 kg (174 lb 3.2 oz) 04/07/2024 10:27 AM EDT Height 162 cm (5' 3.78 ) 04/07/2024 10:27 AM EDT Body Mass Index 30.11 04/07/2024 10:27 AM EDT Plan of Treatment Health Maintenance Due Date Last Done Comments Adult Td,Tdap Booster 1954 LIPID PANEL 1954 DEPRESSION SCREENING 1966 SMOKING Hx and SMOKELESS TOBACCO SCREENING 1967 HEPATITIS C SCREENING 1972 MAMMOGRAM 1994 COLOGUARD 1999 COLONOSCOPY 1999 COLORECTAL CANCER SCREENING 1999 FIT TEST 1999 FOBT 1999 SIGMOIDOSCOPY 1999 VIRTUAL COLONOSCOPY 1999 ZOSTER VACCINES (1 of 2) 2004 PNEUMOCOCCAL VACCINES (50+ years) (2 of 2 - PCV) 01/23/2014 01/23/2013 OSTEOPOROSIS SCREENING INITI AL (ONE-TIME) 2019 COVID-19 VACCINE (3 - 2023-2 5 season) 2024 11/23/2020, 11/02/2020 RSV VACCINE (1 - 1-dose 75+ series) 2029 HEPATITIS A VACCINES Aged Out No long er eligible based on patient's age to complete this topic HIB VACCINES Aged Out No longer eligi ble based on patient's age to complete this topic MENINGOCOCCAL VACCINES (ACWY) Aged Out No longer eligible based on patient's age to complete this topic MENINGOCOCCAL VACCINES (B) Aged Out N o longer eligible based on patient's age to complete this topic Medical Devices Not on file Insurance [employer] ADMINISTRATORS [employer] Member Subscriber Plan / Payer (Ef fective 2019-Present) Name:WandyDesi zimmer Relation to Subscriber:Self Name:Desi Saba Payer ID:[id number] (NAIC) Type:PPO Address: [place] [id number] [employer] ADMINISTRATORS [employer] BENEFITS ADMINISTRATORS [employer] BENEFITS ADMINISTRATORS [employer]MINISTRATORS [employer] ADMINISTRATORS [employer] BENEFITS ADMINISTRATORS [facility] BENEFITS ADMINISTRATORS Care Teams Music Theory Teacher Relationship Specialty Start Date End Date Steven Hahn NP [address] [facility] [place] [id number] PCP - General Nurse Practitioner 04/04/23 Desi Drummond NP [address] [place] [address] [address] [place] [id number] Historical LMR Provider 08/27/17 Montserrat Zhong CNP [address] [place] [address] [address] [place] [phone] jo Historical LMR Provider 08/27/17 Additional Source Comments The information contained in this document represents components of the legal health record. It is not the complete legal health record.[facility]
--- OUTSIDE RECORDS SUMMARY | 2025-07-07 14:52 | XMS_ITS | Patient Health Record ---
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 (M19.071) Active confirmed Vital Signs Blood pressure diastolic 70 mm Hg 06/02/2025 Height 5ft4in in 06/02/2025 Blood pressure systolic 122 mm Hg 06/02/2025 Weight 182 lbs 06/02/2025 BMI 31.24 kg/m2 06/02/2025 Encounters Encounter Location Date Provider Diagnosis [facility] [address] [place] [address] 03/04/2025 Korin Shipman Tinea unguium B35.1 ; Other hammer toe(s) (acquired), left foot M20.42 ; Pain in right toe(s) M79.674 and [facility] left toe(s[facility] M79.[facility] [address] 06/02/2025 Korin Shipman Tinea unguium B35.1 ; Osteoarthritis of right ankle or foot M19.071 ; Pain in right toe(s) M79.674 ; Pain in left toe(s) M79.675 ; Arthralgia of right ankle M25.571 ; Flat foot [pes planus] (acquired), right foot M21.41 and Flat foot [pes planus] (acquired), left foot M21.[address] [address] 10/27/2024 Korin Shipman Assessments Encounter Date Diagnosis [...] Details Provider Name:Korin yi, 09/01/2025 10:00:00 AM, [address] [place] [address], [place], [address], Insurance Providers Payer Name Payer Address Payer Phone Subscriber Number Group Number Insured Name Patient Relationship to Insured Coverage Start Date Coverage End Date [employer] [address] [address] [place] [address] [phone] [id number] Desi Saba Self - patient is the [...]
== END 2025-07-07 14:38 | disposition home or self-care (01) ==
LOC: HO.ENCR 13:59
PROVIDERS: PCP Nurse Practitioner Family; Visit Provider Student in an Organized Health Care Education/Training Program
DX: E05.20 Thyrotoxicosis with toxic multinodular goiter without thyrotoxic crisis or storm (principal)
CPT/HCPCS: 99214